=== PATIENT | male | born 1950 | race Caucasian/White ===

== ENCOUNTER 2023-01-11 10:29 | Inpatient (IN) | payer OTHER, SELFPAY ==
[2023-01-11] VITALS (9 sets, daily range): BP systolic 125–143; BP diastolic 67–77; PULSE 67–74; RESP 18–20; TEMP 36.1–36.9; O2SAT 93–96; BMI 34.2; BMI 34.3
--- NOTE | 2023-01-11 10:47 | ED.GENADULT ---
HPI - General Adult General Time Seen by Provider: 10:47 Date Seen: 01/11/23 Chief complaint: Extremity Pain/Injury, Lower Stated complaint: R foot pain, swelling Time Seen by Provider: 01/11/23 10:39 Source: patient and RN notes reviewed Mode of arrival: ambulatory Limitations: no limitations History of Present Illness HPI narrative: Patient is a 72-year-old male coming in with concern of increasing redness and swelling with some discomfort of his right lower extremity. Last week he rode to the cabin in the back of the van on a bench, his feet were not touching the ground and he compressed the back portion of his right leg, when he got out of the van was a bit uncomfortable. He really did not start noting the redness and swelling and discomfort of the leg until recently. He has not had any fevers. He does report history of gout. His daughter is a nurse and has been putting hydrocolloid type bandage on his right great toe. There is reportedly a little wound there that is maybe been draining some. He denies any significant peripheral neuropathy or diagnosis of this but states overall he feels that his sensation maybe diminished in his lower extremities compared to what it used to be. However, he states he still feels in his legs. Denies any history of MRSA. He is diabetic, denies history of any thromboembolic disease is, denies any use of any anticoagulants or blood thinners. He has no shortness of breath, no difficulty breathing no chest pain or discomfort. Related Data Home Medications Medication Instructions Recorded Confirmed amlodipine 10 mg tablet 10 mg PO DAILY 01/11/23 01/11/23 benazepril 20 mg tablet 20 mg PO DAILY 01/11/23 01/11/23 glipizide 10 mg tablet 10 mg PO DAILY 01/11/23 01/11/23 metformin 1,000 mg tablet 1,000 mg PO BIDWMEAL 01/11/23 01/11/23 metoprolol tartrate 100 mg tablet 100 mg PO DAILY 01/11/23 01/11/23 Allergies Allergy/AdvReac Type Severity Reaction Status Date / Time No Known Drug Allergies Allergy Verified 01/11/23 10:41 Review of Systems Status of ROS: Reports: 6 or more systems reviewed and unremarkable except as noted in History and below PFSH PFSH Social History service: Yes Exam Const: Vital Signs, click to edit/add: Vital Signs - 24 hr 01/11/23 10:42 01/11/23 12:14 01/11/23 12:15 Temperature 97.5 F L Pulse Rate 71 Pulse Rate [Right Pulse Oximeter] 71 Respiratory Rate 18 Blood Pressure 138/74 Blood Pressure [Ri ght Upper Arm] 125/67 Pulse Oximetry 96 94 Oxygen Delivery Me thod Room Air Documenting provider has reviewed patient's vital signs: yes Common normals: no apparent distress, oriented x3, no limitations, healthy appearing and alert General appearance: cooperative, comfortable, well kempt and well developed Nutritional appearance: overweight HENMT: Common normals: normocephalic, head/scalp atraumatic, hearing grossly normal bilaterally and external nose normal Head and scalp: normocephalic and atraumatic Face and sinus: normal facial exam Nose: external nose normal Eye: Common normals: PERRL, EOMs intact bilaterally, conjunctivae normal and no scleral icterus Conjunctiva: conjunctiva(e) normal Pupil: PERRL Neck & C-Spine: Common normals: full ROM, no lymphadenopathy, supple, no meningeal signs and no JVD Resp: Common normals: normal respiratory effort, no retractions, no use of accessory muscles and clear to auscultation bilaterally Effort & inspection: able to speak in complete sentences Auscultation: clear to auscultation bilaterally Cardio: Common normals: no JVD, regular rate, regular rhythm, S1 normal heart sound, S2 normal heart sound, no gallops, no clicks and no murmurs Rate: regular rate Rhythm: regular rhythm Heart sounds: S1 normal and S2 normal Extremity: Other: Right lower extremity is erythematous, slightly warm, is seemingly confluently swollen and red below the knee. The knee itself has no effusion, no popliteal masses or pain. Has swelling into the foot as well, dressing was removed from the medial plantar right great toe. There is purulent odorous discharge out of ulcerative base there. This great toe is swollen. Does not seem to have significant tenderness when I palpate. Neuro: [place] Coma Scale: document GCS findings [place]is coma scale eye opening: Spontaneous (4) Aurora coma scale verbal response: Orientated (5) Aurora coma scale motor response: Obey commands (6) Aurora coma scale total score: 15 Common normals: oriented x3 Sensorium/orientation: alert Meningeal signs: no meningeal signs Psych: Appearance: well kempt Course Course Hospital Course: Patient has clinical exam concerning for cellulitis with underlying right great toe ulceration which is most definitely infected. Also with his recent history, need to consider thromboembolic disease. He has no fevers, no hemodynamic changes concerning for any sepsis. Will obtain baseline labs, x-ray the foot to make sure that there does not look to be any basic changes of osteomyelitis on x-ray imaging. Will ultrasound this right lower extremity to rule out any thromboembolic disease. Reevaluation(s) Time of Reevaluation #1: 12:22 Reevaluation #1: Have just reviewed with patient that there is cellulitis in his right lower extremity, significant clinically. Given he is diabetic and there is a wound in the right great toe, do feel he would benefit initially from IV antibiotics and that this is necessary. There is no evidence of DVT on his ultrasound at this time. He is in agreement with this plan. Consultations Consultation #1: Have reviewed with the hospitalist Dr. Camejo. This is a patient with significant cellulitis, right toe ulcer and is diabetic. She would like blood cultures prior to antibiotics. Thus, will draw blood cultures as requested an initiate Unasyn. We did discuss antibiotic coverage. The wound drainage did have the distinctive Pseudomonas smell, would not be surprised at all if this is possibly an offending agent. This certainly could be a multi microbial wound. Wound culture is pending. Will subsequently review plan with patient. Time: 12:16 Vital Signs Vital signs: Initial Vital Signs Temperature 97.5 F L 01/11/23 10:42 Temperature Source Temporal Artery Scan 01/11/23 10:42 Pulse Rate 71 01/11/23 10:42 Respiratory Rate 18 01/11/23 10:42 Blood Pressure 125/67 01/11/23 10:42 Blood Pressure Mean 86 01/11/23 10:42 Blood Pressure Position Sitting 01/11/23 10:42 Pulse Oximetry 96 01/11/23 10:42 Oxygen Delivery Method Room Air 01/11/23 10:42 Vital Signs Temperature 97.5 F L 01/11/23 10:42 Pulse Rate 71 01/11/23 10:42 Respiratory Rate 18 01/11/23 10:42 Blood Pressure 125/67 01/11/23 10:42 Pulse Oximetry 96 01/11/23 10:42 Oxygen Delivery Method Room Air 01/11/23 10:42 Temperature 97.5 F L 01/11/23 10:42 Pulse Rate 71 01/11/23 12:14 Respiratory Rate 18 01/11/23 10:42 Blood Pressure 138/74 01/11/23 12:15 Pulse Oximetry 94 01/11/23 12:14 Oxygen Delivery Method Room Air 01/11/23 10:42 Medical Decision Making Lab Data Lab results reviewed: Yes I reviewed the patient's lab results Labs: Lab Results 01/11/23 Range/Units 11:10 WBC 16.31 H (4.50-11.00) K/uL RBC 3.52 L (4.30-5.90) m/uL Hgb 10.5 L (13.5-17.5) gm/dL Hct 31.3 L (37.0-53.0) % MCV 89 (80-100) fL MCH 30 (26-34) pg MCHC 34 (32-36) gm/dL RDW Coeff of Richard 13.1 (11.5-15.5) % Plt Count 283 (140-440) K/uL Neut % (Auto) 80.0 H (42.0-72.0) % Lymph % (Auto) 6.8 L (20-44) % [place] % (Auto) 11.3 H (0.0-11.0) % Eos % (Auto) 1.0 (0.0-7.0) % Baso % (Auto) 0.2 (0.0-3.0) % Neut # (Auto) 13.00 H (1.7-7.0) K/uL Lymph # (Auto) 1.10 (0.90-2.90) K/uL [place] # (Auto) 1.80 H (0.00-0.90) K/UL Eos # (Auto) 0.20 (0.00-0.50) K/uL Baso # (Auto) 0.00 (0.00-0.30) K/uL Abs Immat Gran (auto) 0.10 (0.00-0.30) K/uL Imm/Tot Granulo (auto) 0.7 % D-Dimer Quant (PE/DVT) 1.92 H (0.00-0.50) ug/ml Sodium 128 L (135-149) mmol/L Potassium 4.2 (3.6-5.1) mmol/L Chloride 97 (96-114) mmol/L Carbon Dioxide 16 L (20-32) mmol/L Anion Gap 15 (7-15) mEq/L BUN 12 (7-30) mg/dL Creatinine 0.9 (0.5-1.5) mg/dL Estimated Creat Clear 71.12 Estimated GFR 91 ml/min Glucose 94 (60-115) mg/dL Lactate 3.2 H (0.5-1.9) mmol/L Calcium 8.7 (8.4-10.6) mg/dL Total Bilirubin 0.4 (0.1-1.5) mg/dL AST 19 (12-35) U/L ALT 18 (4-50) U/L Alkaline Phosphatase 66 (40-150) U/L C-Reactive Protein 12.2 H (0.5-1.0) mg/dL Total Protein 7.2 (6.0-8.3) g/dL Albumin 3.8 (3.3-5.0) g/dL Imaging Data XR right foot: Attestation: I have reviewed the pertinent imaging results. My impression: I see no evidence of osteomyelitis on my preliminary review. Radiologist's impression: Patient: [facility] Facility:[facility] Patient ID:?[id number] Site Patient ID:?[id number]. Site :?[id number] Study:?XRay Extremity Right FOOT-01/11/2023 11:34:27 AM Ordering Physician:Bianca Mendoza Final Report: Indication: Infected ulcer of the right great toe. Technique: Right foot, 3 views. Comparison: None. Findings/Impression: Bones: Alignment is normal. No displaced fractures. No definite radiographic evidence of osteomyelitis. However, if there is persistent clinical concern, MRI is a much more sensitive study. Joint spaces: Unremarkable. Soft tissues: Soft tissue swelling about the great toe. Vascular calcifications. Dictated by Wiley Gamino MD @ 01/11/2023 12:11:42 PM (Electronic Signature) Venous US: Attestation: I have reviewed the pertinent imaging results. Radiologist's impression: Patient: [facility] Facility:?[facility] Patient ID:?[id number] Site Patient ID:?[id number]. Site :?[id number] Study:?US Extremity Right LEV RT-01/11/2023 11:34:50 AM Ordering Physician:Bianca Mendoza Final Report: INDICATION: Leg pain and swelling. TECHNIQUE: Ultrasound venous duplex lower right extremity. Compression venous exam was performed using salazar-scale, color Doppler, and spectral Doppler analysis. COMPARISON: None. FINDINGS: Deep veins: Sonographic imaging demonstrates the right common femoral, deep femoral, superficial femoral, popliteal, posterior tibial and the contralateral right common femoral veins to be fully compressible with normal color Doppler blood flow. Superficial veins: Greater saphenous vein is fully compressible. No popliteal cyst. IMPRESSION: Normal right lower extremity venous ultrasound, no sign of deep venous thrombosis. Dictated by Wiley Gamino MD @ 01/11/2023 12:09:47 PM (Electronic Signature) Discharge Plan Discharge Clinical Impression: Cellulitis of leg, right Patient Disposition: Admitted As Observation
--- NOTE | 2023-01-11 10:55 | CRLHL7_ITS ---
For Patients: As a result of the Century Cures Act, medical imaging exams and procedure reports are released immediately into your electronic medical record. You may view this report before your referring provider. If you have questions, please contact your health care provider. INDICATION: Leg pain and swelling. TECHNIQUE: Ultrasound venous duplex lower right extremity. Compression venous exam was performed using salazar-scale, color Doppler, and spectral Doppler analysis. COMPARISON: None. FINDINGS: Deep veins: Sonographic imaging demonstrates the right common femoral, deep femoral, superficial femoral, popliteal, posterior tibial and the contralateral right common femoral veins to be fully compressible with normal color Doppler blood flow. Superficial veins: Greater saphenous vein is fully compressible. No popliteal cyst. IMPRESSION: Normal right lower extremity venous ultrasound, no sign of deep venous thrombosis. Dictated by Wiley Gamino MD @ 01/11/2023 12:09:47 PM (Electronically Signed)
--- NOTE | 2023-01-11 10:55 | CRLHL7_ITS ---
For Patients: As a result of the Cures Act, medical imaging exams and procedure reports are released immediately into your electronic medical record. You may view this report before your referring provider. If you have questions, please contact your health care provider. Indication: Infected ulcer of the right great toe. Technique: Right foot, 3 views. Comparison: None. Findings/Impression: Bones: Alignment is normal. No displaced fractures. No definite radiographic evidence of osteomyelitis. However, if there is persistent clinical concern, MRI is a much more sensitive study. Joint spaces: Unremarkable. Soft tissues: Soft tissue swelling about the great toe. Vascular calcifications. Dictated by Wiley Gamino MD @ 01/11/2023 12:11:42 PM (Electronically Signed)
[2023-01-11 11:15] LABS: Lactate* 3.2 mmol/L (0.5-1.9)
[2023-01-11 11:19] LABS: Basophils Percent Auto 0.2 % (0.0-3.0); Hematocrit 31.3 % (37.0-53.0); Hemoglobin* 10.5 gm/dL (13.5-17.5); Immature Granulocytes Pct Auto 0.7 %; Lymphocytes Percent Auto 6.8 % (20-44); Mean Corpuscular HGB Conc 34 gm/dL (32-36); Mean Corpuscular Hemoglobin 30 pg (26-34); Mean Corpuscular Volume 89 fL (80-100); Monocytes Percent Auto 11.3 % (0.0-11.0); Platelet Count* 283 K/uL (140-440); RDW Coefficient of Variation % 13.1 % (11.5-15.5); Red Blood Count 3.52 m/uL (4.30-5.90); White Blood Count* 16.31 K/uL (4.50-11.00)
[2023-01-11 11:23] LABS: Slide Review Reflex No
[2023-01-11 11:31] LABS: Albumin* 3.8 g/dL (3.3-5.0); Chloride* 97 mmol/L (96-114)
[2023-01-11 11:32] LABS: Potassium* 4.2 mmol/L (3.6-5.1); Sodium* 128 mmol/L (135-149)
[2023-01-11 11:34] LABS: Bilirubin Total* 0.4 mg/dL (0.1-1.5); Creatinine* 0.9 mg/dL (0.5-1.5); Est. Creatinine Clearance* 71.12; Estimated Glomerular Filt Rate 91 ml/min
[2023-01-11 11:35] LABS: Alanine Aminotransferase* 18 U/L (4-50); Alkaline Phosphatase* 66 U/L (40-150); Anion Gap 15 mEq/L (7-15); Aspartate Amino Transferase* 19 U/L (12-35); Blood Urea Nitrogen* 12 mg/dL (7-30); Calcium* 8.7 mg/dL (8.4-10.6); Carbon Dioxide* 16 mmol/L (20-32); Glucose* 94 mg/dL (60-115); Total Protein* 7.2 g/dL (6.0-8.3)
[2023-01-11 11:36] LABS: D Dimer Quantitative* 1.92 ug/ml (0.00-0.50)
[2023-01-11 11:59] LABS: C Reactive Protein* 12.2 mg/dL (0.5-1.0)
[2023-01-11] MEDS: PIPERACILLIN/TAZOBACTAM 3.375 GM in 0.9 % SODIUM CHLORIDE Mini-bag 100 ML IVPB (12:35)
[2023-01-11] MEDS: IBUPROFEN 200 MG TABLET 400 MG PO (12:59)
--- NOTE | 2023-01-11 13:24 | P.IMHP_ITS ---
Hospitalist- H&P: HPI History of Present Illness Date Seen: 01/11/23 Chief complaint: R foot pain, swelling Narrative: ADMISSION HISTORY AND PHYSICAL - HOSPITALIST Chief Complaint: right foot infection HPI: ER COURSE: CODE STATUS: EMERGENCY CONTACT PLAN: Veena Myers Rel to [facility] [phone] Cell Phone I've updated the [facility], medications and allergies in the [facility] tabs. INVESTIGATIONS: LABS/MICRO/ECG/IMAGING 138/74. Pulse 71. Resp is 18. Afebrile. 94% on room air. 111.13 kilos (244lbs) Elevated white blood cell count, 16.3 Hemoglobin 10.5 Platelet count 283 Elevated D-dimer Sodium 128, mildly acidotic with a CO2 of 16, lactate 3.2, normal kidney function Normal LFTs CRP 12.2 duplex right foot Normal right lower extremity venous ultrasound, no sign of deep venous thrombosis. ft foot xray Bones: Alignment is normal. No displaced fractures. No definite radiographic evidence of osteomyelitis. However, if there is persistent clinical concern, MRI is a much more sensitive study. REVIEW OF SYSTEMS: 12-point ROS completed with patient and negative unless otherwise stated in HPI or below. PHYSICAL EXAM: CONSTITUTIONAL: Conversive, good historian. A/O. Knows setting and context. VITAL SIGNS: see record. HEENT: Normocephalic, atraumatic. PERRL, EOMI, conjunctivae pink, no scleral icterus. Ears and nose externally normal. Pharynx normal. NECK: No JVD. No carotid bruit, no thyromegaly, no adenopathy. CHEST: Clear to auscultation bilaterally HEART: S1 and S2 normal. No harsh murmurs. Edema MUSCULOSKELETAL: No gross joint deformity or swelling. NEURO: Cranial nerves intact. Grossly intact. No asymmetric findings. SKIN: No rashes, petechiae, concerning changes PSYCHIATRIC: Euthymic. ADMIT TO MEDSURG: CCU FLOOR CARE DVT: Lovenox GI: PO intake Time spent: Today I spent 75 minutes seeing the patient, discussing the patient with ER staff, reviewing [facility] and [facility] notes/diagnostics, discussing the care plan with our care time that includes social work, PT/OT, pharmacy, RT, [place] [facility] and documenting my impressions and plan in the medical record. [facility] Medical History (Updated 01/11/23 @ 13:25 by Mylene Camejo MD) B12 deficiency ?E53.8 - Deficiency of other specified B group vitamins (ICD-10) Lumbosacral radiculopathy at L5 ?M54.17 - Radiculopathy, lumbosacral region (ICD-10) Spinal stenosis ?M48.00 - Spinal stenosis, site unspecified (ICD-10) Social History service: Yes Meds Home Medications and Allergies Home Medications Medication Instructions Recorded Confirmed Type amlodipine 10 mg tablet 10 mg PO DAILY 01/11/23 01/11/23 History benazepril 20 mg tablet 20 mg PO DAILY 01/11/23 01/11/23 History glipizide 10 mg tablet 10 mg PO DAILY 01/11/23 01/11/23 History metformin 1,000 mg tablet 1,000 mg PO BIDWMEAL 01/11/23 01/11/23 History metoprolol tartrate 100 mg tablet 100 mg PO DAILY 01/11/23 01/11/23 History Allergies Allergy/AdvReac Type Severity Reaction Status Date / Time No Known Drug Allergies Allergy Verified 01/11/23 10:41 Exam Const: Vital Signs, click to edit/add: Vital Signs - 24 hr 01/11/23 10:42 01/11/23 12:14 01/11/23 12:15 Temperature 97.5 F L Pulse Rate 71 Pulse Rate [Right Pulse Oximeter] 71 Respiratory Rate 18 Blood Pressure 138/74 Blood Pressure [Ri ght Upper Arm] 125/67 Pulse Oximetry 96 94 Oxygen Delivery Me thod Room Air Hospitalist - H&P: Result Labs Labs: Short CBC 01/11/23 Range/Units 11:10 WBC 16.31 H (4.50-11.00) K/uL Hgb 10.5 L (13.5-17.5) gm/dL Hct 31.3 L (37.0-53.0) % Plt Count 283 (140-440) K/uL BMP 01/11/23 11:10 Sodium 128 L Potassium 4.2 Chloride 97 Carbon Dioxide 16 L BUN 12 Creatinine 0.9 Glucose 94 Calcium 8.7 Liver Function 01/11/23 Range/Units 11:10 Total Bilirubin 0.4 (0.1-1.5) mg/dL AST 19 (12-35) U/L ALT 18 (4-50) U/L Alkaline Phosphatase 66 (40-150) U/L Albumin 3.8 (3.3-5.0) g/dL Assessment and Plan Assessment and plan (1) Hyponatremia: Status: Acute (2) Type 2 diabetes mellitus: Status: Acute (3) Morbid obesity: Status: Acute (4) Elevated lactic acid level: Status: Acute
[2023-01-11 13:49] LABS: HCO3 VBG 17 mmol/L (21-28); PCO2 VBG 27 mmHG (40-50); PO2 VBG 53.2 mmHG (25-47); pH VBG 7.394 (7.32-7.43)
--- NOTE | 2023-01-11 13:50 | CRLHL7_ITS ---
For Patients: As a result of the Century Cures Act, medical imaging exams and procedure reports are released immediately into your electronic medical record. You may view this report before your referring provider. If you have questions, please contact your health care provider. HISTORY: Swollen red toe. Open wound. TECHNIQUE: Noncontrast MRI of the right forefoot. COMPARISON: Radiographs 01/11/2023. FINDINGS: Soft tissue wound involving the great toe. Infiltration of the soft tissues of the great toe compatible with cellulitis. No deep fluid collection. Possible skin blistering involving the great toe. There is no osteomyelitis. No definite septic arthritis. There are degenerative changes involving the 1st MTP and IP joints. There is no acute fracture. Soft tissue edema. Subacute on chronic denervation changes involving foot musculature. IMPRESSION: 1. Cellulitis of the great toe with soft tissue wound and potentially skin blistering. 2. No deeper soft tissue collection. 3. No osteomyelitis or septic arthritis. 4. Degenerative changes. Dictated by John Huertas MD @ 01/13/2023 5:05:18 PM (Electronically Signed)
--- NOTE | 2023-01-11 13:59 | P.IMHP_ITS ---
Hospitalist- H&P: HPI History of Present Illness Date Seen: 01/11/23 Chief complaint: R foot pain, swelling Narrative: Shayne Myers is a 72 year old male presented to the emergency room today for a right great toe lesion, in addition to right lower extremity erythema, edema, and warmth. He has noted some bloody drainage from his right great toe for a couple of weeks and 5 days ago, noted erythema of his right lower extremity. He has had intermittent discomfort (known history of peripheral vascular disease and peripheral neuropathy), using ibuprofen for pain. He is trying to not use this every day, but occasionally will take up to #10 200mg tablets per day for pain. ER Course and Findings: - would and blood cultures obtained - Zosyn initiated - no acute findings on lower extremity ultrasound - Hgb 10.5 (no history of anemia on chart review) - Na 128 (outpatient sodium baseline 134) - WBC 16, lactate 3.2 Histories updated below. [facility] Review of Systems Status of ROS: Reports: 10 or more systems reviewed and unremarkable except as noted in History and below Narrative: - no abdominal pain or GERD - no hematochezia or melena - last colonoscopy was in 2014, he is not interested in having a repeat. He performed a Cologuard approximately 5 years ago that was negative - daily ETOH use, typically doesn't drink during the month of May. No history of withdrawal - weight has been stable, appetite stable - believes last A1c was 7.9 - no chest pain or shortness of breath - no other concerning skin lesions, has been seen Dermatology regularly [facility] Medical History (Updated 01/11/23 @ 14:28 by Margarita Caldwell MD) Morbid obesity ?E66.01 - Morbid (severe) obesity due to excess calories (ICD-10) Type 2 diabetes mellitus ?E11.9 - Type 2 diabetes mellitus without complications (ICD-10) Atrial fibrillation ?I48.91 - Unspecified atrial fibrillation (ICD-10) B12 deficiency ?E53.8 - Deficiency of other specified B group vitamins (ICD-10) Lumbosacral radiculopathy at L5 ?M54.17 - Radiculopathy, lumbosacral region (ICD-10) Spinal stenosis ?M48.00 - Spinal stenosis, site unspecified (ICD-10) Surgical History (Updated 01/11/23 @ 14:28 by Margarita Caldwell MD) Status post ablation of atrial fibrillation ?Z98.890 - Other specified postprocedural states (ICD-10) ?Z86.79 - Personal history of other diseases of the circulatory system (ICD- 10) Social History (Updated 01/11/23 @ 14:29 by Margarita Caldwell MD) Narrative: Lives with Veena (would be medical decision maker, if needed) of 37 years in [place]. Shayne is Veena's primary caregiver. They have 3 adult children. Previously worked for [employer] Occasional cigar smoker. Drinks daily for most of the year (typically takes May). No history of withdrawal. service: Yes Meds Home Medications and Allergies Home Medications Medication Instructions Recorded Confirmed Type amlodipine 10 mg tablet 10 mg PO DAILY 01/11/23 01/11/23 History atorvastatin 20 mg tablet 20 mg PO QHS 01/11/23 01/11/23 History benazepril 20 mg tablet 40 mg PO DAILY 01/11/23 01/11/23 History glipizide 10 mg tablet 10 mg PO BID 01/11/23 01/11/23 History metformin 1,000 mg tablet 1,000 mg PO BIDWMEAL 01/11/23 01/11/23 History metoprolol tartrate 100 mg tablet 100 mg PO BID 01/11/23 01/11/23 History Allergies Allergy/AdvReac Type Severity Reaction Status Date / Time No Known Drug Allergies Allergy Verified 01/11/23 10:41 Exam Narrative: Exam Narrative: GEN: Alert and oriented, answering questions appropriately, nontoxic HEENT: EOMIs bilaterally, no scleral icterus CV: RRR, No concerning murmurs, rubs, or gallops R: LCTA bilaterally without concerning wheezing, air movement adequate Ext: 3+ pitting edema right lower extremity, decreased peripheral pulses Skin: Confluent blanchable erythema over right lower extremity, distal to the knee. Erythema extends to right great toe. There is a approximately 1 cm in diameter callus lesion on the medial edge of the right great toe, there is another vesicular lesion at the base of the right great toe, plantar aspect, that is draining serosanguineous fluid Neuro: No focal deficits on limited exam Psych: Appropriate Const: Vital Signs, click to edit/add: Vital Signs - 24 hr 01/11/23 10:42 01/11/23 12:14 01/11/23 12:15 Temperature 97.5 F L Pulse Rate 71 Pulse Rate [Right Pulse Oximeter] 71 Respiratory Rate 18 Blood Pressure 138/74 Blood Pressure [Ri ght Upper Arm] 125/67 Pulse Oximetry 96 94 Oxygen Delivery Me thod Room Air Hospitalist - H&P: Result Labs Labs: Short CBC 01/11/23 Range/Units 11:10 WBC 16.31 H (4.50-11.00) K/uL Hgb 10.5 L (13.5-17.5) gm/dL Hct 31.3 L (37.0-53.0) % Plt Count 283 (140-440) K/uL BMP 01/11/23 11:10 Sodium 128 L Potassium 4.2 Chloride 97 Carbon Dioxide 16 L BUN 12 Creatinine 0.9 Glucose 94 Calcium 8.7 Liver Function 01/11/23 Range/Units 11:10 Total Bilirubin 0.4 (0.1-1.5) mg/dL AST 19 (12-35) U/L ALT 18 (4-50) U/L Alkaline Phosphatase 66 (40-150) U/L Albumin 3.8 (3.3-5.0) g/dL Assessment and Plan Assessment and plan (1) Diabetic ulcer of right great toe: Problem comment: - in addition to RLE cellulitis - high risk patient given immunocompromised state as a diabetic, in addition to peripheral vascular disease and neuropathy - Zosyn initiated in the ED, will continue this - MRI ordered and Podiatry consulted Status: Acute (2) Hyponatremia: Problem comment: - potentially related to acute illness vs increased free water intake vs alcohol use - asymptomatic, mild, continue to follow Status: Acute (3) Type 2 diabetes mellitus: Problem comment: - noninsulin dependent - continue home medications + SSI Status: Acute (4) Normocytic anemia: Problem comment: - new, per chart review - I am concerned this represents gastritis in the setting of ibuprofen and alcohol use, although patient is asymptomatic - initiate omeprazole, decrease dosing of ibuprofen, trial alternative therapies for pain - continue outpatient follow-up for anemia workup (known B12 deficiency from PVD workup, no history of anemia prior) Status: Acute Plan - per above - Lovenox for ppx, PPI - updated at bedside, questions answered
[2023-01-11 14:16] LABS: Procalcitonin* 0.11 ng/mL (<0.50)
[2023-01-11 14:20] LABS: Hemoglobin A1C* 6.77 % (0-5.6)
[2023-01-11] MEDS: ACETAMINOPHEN 325 MG TABLET 975 MG PO (15:14)
--- NOTE | 2023-01-11 17:13 | PC.NURSE ---
Pt alert and oriented. Pt pleasant and cooperative. Pt had complaints of pain ranging from 4-5; see EMAR for intervention. Pt?s right LE reddened and edematous. Pt independent in room with walker. Pt had visitors for most of the afternoon. Pt went to MRI at 1700.?
[2023-01-11] MEDS: METFORMIN 1,000 MG TABLET 1000 MG PO (18:17)
[2023-01-11] MEDS: PIPERACILLIN/TAZOBACTAM 4.5 GM in 0.9 % SODIUM CHLORIDE Mini-bag 100 ML IVPB (18:17)
[2023-01-11] MEDS: glipiZIDE 5 MG TABLET 10 MG PO (18:17)
--- NOTE | 2023-01-11 20:01 | P.PODCN_ITS ---
HPI - Podiatry Data of Consult Time Seen by Provider: 19:15 Date Seen: 01/11/23 Patient: [facility] ([facility]) Consult date: 01/11/23 Requesting physician: Margarita Caldwell MD Primary care provider: Not a Local Provider Consult Narrative Reason for consult: Diabetic foot infection Narrative: Shayne Myers is a 72 year old male seen bedside this evening to evaluate his infected right great toe. Currently states he is having some pain but overall feels there is improvement. He relates a significant history for gout. He presented to the emergency room today for a right great toe lesion, in addition to right lower extremity erythema, edema, and warmth. He has noted some bloody drainage from his right great toe for a couple of weeks and 5 days ago, noted erythema of his right lower extremity. He has had intermittent discomfort (known history of peripheral vascular disease and peripheral neuropathy), using ibuprofen for pain. He is trying to not use this every day, but occasionally will take up to #10 200mg tablets per day for pain. ER Course and Findings: - would and blood cultures obtained - Zosyn initiated - no acute findings on lower extremity ultrasound - Hgb 10.5 (no history of anemia on chart review) - Na 128 (outpatient sodium baseline 134) - WBC 16, lactate 3.2 Histories updated below. PCP is the [place]. cc:: CC: Margarita Caldwell MD Review of Systems Status of ROS: Reports: 10 or more systems reviewed and unremarkable except as noted in History and below PFS PFS Medical History Morbid obesity ?E66.01 - Morbid (severe) obesity due to excess calories (ICD-10) Type 2 diabetes mellitus ?E11.9 - Type 2 diabetes mellitus without complications (ICD-10) Atrial fibrillation ?I48.91 - Unspecified atrial fibrillation (ICD-10) B12 deficiency ?E53.8 - Deficiency of other specified B group vitamins (ICD-10) Lumbosacral radiculopathy at L5 ?M54.17 - Radiculopathy, lumbosacral region (ICD-10) Spinal stenosis ?M48.00 - Spinal stenosis, site unspecified (ICD-10) Surgical History (Updated 01/11/23 @ 14:28 by Margarita Caldwell MD) Status post ablation of atrial fibrillation ?Z98.890 - Other specified postprocedural states (ICD-10) ?Z86.79 - Personal history of other diseases of the circulatory system (ICD- 10) Social History (Updated 01/11/23 @ 14:29 by Margarita Caldwell MD) Narrative: Lives with Veena (would be medical decision maker, if needed) of 37 years in [place]. Shayne is Veena's primary caregiver. They have 3 adult children. Previously worked for [employer]. Occasional cigar smoker. Drinks daily for most of the year (typically takes May off). No history of withdrawal. What is your current living situation?: I presently have a place to live Problems where you live: no known problems Problems where you live details: NA In the past 12 months, utilities in danger of being shut off: no In the past 12 mos, have been you worried that your food would run out before you had money to buy more?: never true In the past 12 mos, the food you bought just didn't last and you didn't have money to buy more?: never true Highest level of school completed/degree received: 12th grade, no diploma Smoking Status: Light tobacco smoker What tobacco products do you use: cigars Nicotine containing products detail: Smokes cigars on occasion Second hand tobacco smoke exposure: Yes How often do you have a drink containing alcohol: 4 or more times a week Alcohol type: beer How many standard drinks containing alcohol do you have on a typical day: 1 or 2 How often do you have six or more drinks on one occasion: Never AUDIT-C Alcohol total score: 4 Non-prescribed substance use: denies use Caffeine: Yes How often does anyone, including family, friends and others, physically hurt you : never How often does anyone, including family, friends and others, insult or talk down to you: never How often does anyone, including family, friends and others, threaten you with harm: never How often does anyone, including family, friends and others, scream or curse at you: never Gender Identity: male service: Yes Exam Narrative: Exam Narrative: General: No distress resting comfortably. Vascular: Nonpalpable pedal pulses. Capillary fill time less than 3 seconds all digits. Neuro: Diminished sensation to light touch. Musculoskeletal: Decreased range of motion of the 1st MPJ and the IPJ right great toe. Normal muscle strength. No gross deformity. Derm: Erythema to the right great toe extending to the dorsal foot and ankle. There is a bullous lesion the plantar aspect of the toe near the sulcus. After debridement there is exposed dermal tissue in this area but no exposed subcutaneous tissue. Small amount of purulence drained. There is a ulceration plantar medial IPJ right hallux. Ulceration measures 1 cm x 3 mm. Does not track or undermine. Does not track to bone. No purulence from this area. Labs: White count 16.3, neutrophils 13 with left shift, lactate 3.2, CRP 12.2 Wound culture: Pending X-ray: Mild arthritic changes of the IPJ and MPJ without definitive signs of osteomyelitis. MRI: Radiologist's read is pending. Per my read there does not appear to be an abscess or significant fluid collection deep to the dermal tissue. There does not appear to be signs of osteomyelitis or septic joint. 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 I do not feel that surgical intervention is necessary at this time. This may change based on the radiologist's interpretation of the MRI. I recommend debridement of the ulceration and bolus lesion. Verbal consent was obtained from the patient to proceed. Following debridement Adaptic was applied to the wound and a sterile dressing. Ideally a Hydrogel wound gel with light dressing would be ideal changed daily. I would anticipate discharge home with oral antibiotics once culture complete. Procedure: verbal consent and sterile prep performed. Sharp excisional debridement of the ulceration and bolus lesion was performed with a 10 scalpel blade. The overlying skin of the bolus lesion was excised exposing deep dermal tissue but no subcutaneous tissue. Excisional debridement of the ulcer included subcutaneous tissue. Healthy bleeding margins were obtained. Sterile dressing applied. The area the bolus lesion measured 3 cm x 2 cm. Const: Vital Signs, click to edit/add: Vital Signs - 24 hr 01/11/23 10:42 01/11/23 12:14 01/11/23 12:15 Temperature 97.5 F L Pulse Rate 71 Pulse Rate [Pulse Oximeter] Pulse Rate [Right Pulse Oximeter] 71 Respiratory Rate 18 Blood Pressure 138/74 Blood Pressure [Ri ght Arm] Blood Pressure [Ri ght Upper Arm] 125/67 Pulse Oximetry 96 94 Oxygen Delivery Me thod Room Air 01/11/23 13:05 01/11/23 13:30 01/11/23 13:45 Temperature 97.0 F L Pulse Rate Pulse Rate [Pulse Oximeter] 67 Pulse Rate [Right Pulse Oximeter] Respiratory Rate 18 18 18 Blood Pressure Blood Pressure [Ri ght Arm] 139/76 Blood Pressure [Ri ght Upper Arm] Pulse Oximetry 93 93 93 Oxygen Delivery Me thod Room Air Room Air Room Air 01/11/23 15:00 Temperature Pulse Rate Pulse Rate [Pulse Oximeter] Pulse Rate [Right Pulse Oximeter] Respiratory Rate 18 Blood Pressure Blood Pressure [Ri ght Arm] Blood Pressure [Ri ght Upper Arm] Pulse Oximetry 93 Oxygen Delivery Me thod Room Air Nail Debridement Qualifies If: Qualifiers If:: A patient qualifies for nail debridement if they have: 1 class A finding (Q7) 2 class B findings (Q8) OR 1 class B & 2 class C findings in addition to a primary condition (Q9)
[2023-01-11] MEDS: ENOXAPARIN 40 MG/0.4 ML INJ SUBCUT (20:30)
[2023-01-11] MEDS: METOPROLOL TARTRATE 100 MG TABLET PO (20:30)
[2023-01-11] MEDS: ATORVASTATIN 10 MG TABLET 20 MG PO (20:31)
[2023-01-11] MEDS: SODIUM CHLORIDE 0.9 % (FLUSH) 10 ML SYRINGE 5 ML IVF (20:32)
[2023-01-12] VITALS (8 sets, daily range): BP systolic 138–156; BP diastolic 77–85; PULSE 70–77; RESP 16–18; TEMP 36.5–37.6; O2SAT 92–97
[2023-01-12] MEDS: ACETAMINOPHEN 325 MG TABLET 975 MG PO ×3 (00:22→17:53)
[2023-01-12] MEDS: PIPERACILLIN/TAZOBACTAM 4.5 GM in 0.9 % SODIUM CHLORIDE Mini-bag 100 ML IVPB ×4 (00:22→18:00)
[2023-01-12] MEDS: SODIUM CHLORIDE 0.9 % (FLUSH) 10 ML SYRINGE 5 ML IVF ×5 (00:23→20:20)
[2023-01-12] MEDS: OMEPRAZOLE 20 MG CAPSULE DR 40 MG PO (06:30)
--- NOTE | 2023-01-12 07:00 | PC.NURSE ---
END OF SHIFT NOTE: PT PLEASANT AND COOPERATIVE. A&Ox3. CP, SOB, N/V. AMBULATES WITH WALKER INDEPENDENTLY WITHIN ROOM. VSS ON RA; AFEBRILE. DRESSING TO R. FT C/D/I.?CALL LIGHT WITHIN PT?S REACH. PT SLEPT WELL OVERNIGHT. PT REPORTS RIGHT EXTREMITY FEELING MUCH BETTER THIS MORNING WITH LESS PAIN.
[2023-01-12 07:23] LABS: Basophils Percent Auto 0.5 % (0.0-3.0); Eosinophils Percent Auto 3.3 % (0.0-7.0); Hemoglobin* 10.3 gm/dL (13.5-17.5); Immature Granulocytes Pct Auto 0.8 %; Lymphocytes Percent Auto 9.9 % (20-44); Mean Corpuscular HGB Conc 33 gm/dL (32-36); Mean Corpuscular Hemoglobin 30 pg (26-34); Mean Corpuscular Volume 89 fL (80-100); Monocytes Percent Auto 13.1 % (0.0-11.0); Neutrophils Percent Auto 72.4 % (42.0-72.0); Platelet Count* 303 K/uL (140-440); RDW Coefficient of Variation % 13.1 % (11.5-15.5); Red Blood Count 3.48 m/uL (4.30-5.90); White Blood Count* 11.71 K/uL (4.50-11.00)
[2023-01-12 07:28] LABS: Slide Review Reflex No
[2023-01-12] MEDS: METFORMIN 1,000 MG TABLET 1000 MG PO ×2 (07:42→17:53)
[2023-01-12] MEDS: glipiZIDE 5 MG TABLET 10 MG PO ×2 (07:42→17:54)
[2023-01-12 07:46] LABS: Albumin* 3.2 g/dL (3.3-5.0); Chloride* 99 mmol/L (96-114); Sodium* 132 mmol/L (135-149)
[2023-01-12 07:48] LABS: Creatinine* 0.7 mg/dL (0.5-1.5); Est. Creatinine Clearance* 71.12; Estimated Glomerular Filt Rate 98 ml/min
[2023-01-12 07:49] LABS: Alanine Aminotransferase* 17 U/L (4-50); Alkaline Phosphatase* 71 U/L (40-150); Anion Gap 7 mEq/L (7-15); Aspartate Amino Transferase* 19 U/L (12-35); Bilirubin Total* 0.5 mg/dL (0.1-1.5); Blood Urea Nitrogen* 12 mg/dL (7-30); Calcium* 8.5 mg/dL (8.4-10.6); Carbon Dioxide* 26 mmol/L (20-32); Glucose* 80 mg/dL (60-115); Total Protein* 6.2 g/dL (6.0-8.3)
[2023-01-12 08:23] LABS: Lactate* 0.9 mmol/L (0.5-1.9)
--- NOTE | 2023-01-12 08:30 | REH.OT ---
Patient has not identified skilled OT needs. Patient up independently in room. Discharge OT order.
[2023-01-12 08:43] LABS: Procalcitonin* 0.11 ng/mL (<0.50)
[2023-01-12] MEDS: METOPROLOL TARTRATE 100 MG TABLET PO ×2 (09:35→20:15)
[2023-01-12] MEDS: BENAZEPRIL 10 MG TABLET 40 MG PO (09:35)
[2023-01-12] MEDS: AMLODIPINE 10 MG TABLET PO (09:36)
--- NOTE | 2023-01-12 10:43 | P.IMPN_ITS ---
Progress Note: A&P Assessment and plan (1) Diabetic ulcer of right great toe: Problem details: - in addition to RLE cellulitis - high risk patient given immunocompromised state as a diabetic, in addition to peripheral vascular disease and neuropathy - Zosyn initiated in the ED, will continue this - MRI ordered and Podiatry consulted MRI Right foot: soft tissue swelling about the great toe, vascular calcifications Status: Acute (2) Type 2 diabetes mellitus: Problem details: - noninsulin dependent - continue home medications + SSI Status: Acute (3) Cellulitis of leg, right: Status: Acute (4) Hyponatremia: Problem details: - potentially related to acute illness vs increased free water intake vs alcohol use - asymptomatic, mild, continue to follow Sodium improving 128->132 Status: Acute (5) Normocytic anemia: Problem details: - new, per chart review - I am concerned this represents gastritis in the setting of ibuprofen and alcohol use, although patient is asymptomatic - initiate omeprazole, decrease dosing of ibuprofen, trial alternative therapies for pain - continue outpatient follow-up for anemia workup (known B12 deficiency from P VD workup, no history of anemia prior) Status: Acute Plan continue zosyn, WBC improving; low grade temp overnight; wound culture pending Subjective Date Seen: 01/12/23 Interval history: patient concerned about his who has MS; his daughter is staying with her till Saturday temp of 99.6 overnight improved erythema of right lower extremity MRI Right foot: soft tissue swelling about the great toe, vascular calcificat ions Exam Narrative: Exam Narrative: Gen: no acute distress HEENT: NCAT EOMI mmm CV: RRR normal s1 s2 Lungs: CTAB Abd: Soft,nt, nd Neuro: Alert, oriented, CN grossly intact; nonfocal screening?exam Psych: appropriate affect MSK: age appropriate muscle mass Skin; improved right lower extremity erythema; right great toe purulent discharge Const: Vital Signs, click to edit/add: Vital Signs - 24 hr 01/11/23 12:14 01/11/23 12:15 01/11/23 13:05 Temperature 97.0 F L Pulse Rate 71 Pulse Rate [Pulse Oximeter] 67 Respiratory Rate 18 Blood Pressure 138/74 Blood Pressure [Ri ght Arm] 139/76 Pulse Oximetry 94 93 Oxygen Delivery Me thod Room Air 01/11/23 13:30 01/11/23 13:45 01/11/23 15:00 Temperature Pulse Rate Pulse Rate [Pulse Oximeter] Respiratory Rate 18 18 18 Blood Pressure Blood Pressure [Ri ght Arm] Pulse Oximetry 93 93 93 Oxygen Delivery Me thod Room Air Room Air Room Air 01/11/23 20:25 01/11/23 22:55 01/11/23 22:55 Temperature 98.4 F Pulse Rate Pulse Rate [Pulse Oximeter] 74 74 Respiratory Rate 20 20 20 Blood Pressure Blood Pressure [Ri ght Arm] 143/77 H Pulse Oximetry 95 95 Oxygen Delivery Me thod Room Air CPAP Room Air CPAP 01/12/23 00:20 01/12/23 03:00 01/12/23 07:25 Temperature 99.6 F 98.2 F Pulse Rate Pulse Rate [Pulse Oximeter] 76 75 Respiratory Rate 18 18 16 Blood Pressure Blood Pressure [Ri ght Arm] 142/77 H 150/79 H Pulse Oximetry 92 95 Oxygen Delivery Me thod Room Air CPAP CPAP Room Air 01/12/23 07:25 Temperature Pulse Rate Pulse Rate [Pulse Oximeter] Respiratory Rate 16 Blood Pressure Blood Pressure [Ri ght Arm] Pulse Oximetry 95 Oxygen Delivery Me thod Room Air Labs Labs: Laboratory Results - last 24 hr 01/11/23 01/11/23 01/12/23 11:10 13:36 06:37 WBC 16.31 H 11.71 H RBC 3.52 L 3.48 L Hgb 10.5 L 10.3 L Hct 31.3 L 31.0 L MCV 89 89 MCH 30 30 MCHC 34 33 RDW Coeff of Richard 13.1 13.1 Plt Count 283 303 Neut % (Auto) 80.0 H 72.4 H Lymph % (Auto) 6.8 L 9.9 L [place] % (Auto) 11.3 H 13.1 H Eos % (Auto) 1.0 3.3 Baso % (Auto) 0.2 0.5 Neut # (Auto) 13.00 H 8.50 H Lymph # (Auto) 1.10 1.20 [place] # (Auto) 1.80 H 1.50 H Eos # (Auto) 0.20 0.40 Baso # (Auto) 0.00 0.10 Abs Immat Gran (auto) 0.10 0.10 Imm/Tot Granulo (auto) 0.7 0.8 D-Dimer Quant (PE/DVT) 1.92 H VBG pH 7.394 VBG pCO2 27 L VBG pO2 53.2 H VBG HCO3 17 L Sodium 128 L 132 L Potassium 4.2 5.0 Chloride 97 99 Carbon Dioxide 16 L 26 Anion Gap 15 7 BUN 12 12 Creatinine 0.9 0.7 Estimated Creat Clear 71.12 71.12 Estimated GFR 91 98 Glucose 94 80 Hemoglobin A1c 6.77 H Lactate 3.2 H 0.9 Calcium 8.7 8.5 Total Bilirubin 0.4 0.5 AST 19 19 ALT 18 17 Alkaline Phosphatase 66 71 C-Reactive Protein 12.2 H Total Protein 7.2 6.2 Albumin 3.8 3.2 L Procalcitonin 0.11 0.11 Lab Acknowledgement Test Added
--- NOTE | 2023-01-12 13:23 | W.PM.CROSSCO ---
Subjective Subjective Date Seen: 01/12/23 Principal diagnosis: Results review Interval history: Patient noted to have GPC in clusters on blood culture. Vancomycin added to Zosyn. VS reassuring. Continue to follow, repeat blood cultures ordered.
--- NOTE | 2023-01-12 16:37 | PC.NURSE ---
Pt alert and oriented. Pt pleasant and cooperative. Pt had complaints of pain rated at a 2; Pt had scheduled medications-Pt did not want any PRN medications during shift. Pt?s right LE reddened and edematous; redness has improved from time of admission. Pt?s outer layer of dressing rewrapped and secured mid-morning. Pt independent in room with walker. Pt had visitors in the midafternoon. Pt up in chair multiple times during shift. ? ?
[2023-01-12] MEDS: ENOXAPARIN 40 MG/0.4 ML INJ SUBCUT (20:15)
[2023-01-12] MEDS: ATORVASTATIN 10 MG TABLET 20 MG PO (20:15)
[2023-01-13] VITALS (7 sets, daily range): BP systolic 144–152; BP diastolic 69–80; PULSE 68–76; RESP 16–18; TEMP 36.6–37; O2SAT 93–97
[2023-01-13] MEDS: ACETAMINOPHEN 325 MG TABLET 975 MG PO ×3 (00:18→17:37)
[2023-01-13] MEDS: PIPERACILLIN/TAZOBACTAM 4.5 GM in 0.9 % SODIUM CHLORIDE Mini-bag 100 ML IVPB ×4 (00:18→18:04)
[2023-01-13 06:39] LABS: Basophils Percent Auto 0.3 % (0.0-3.0); Eosinophils Percent Auto 3.2 % (0.0-7.0); Hemoglobin* 10.2 gm/dL (13.5-17.5); Lymphocytes Percent Auto 12.8 % (20-44); Mean Corpuscular HGB Conc 33 gm/dL (32-36); Mean Corpuscular Hemoglobin 30 pg (26-34); Mean Corpuscular Volume 90 fL (80-100); Monocytes Percent Auto 12.2 % (0.0-11.0); Neutrophils Percent Auto 70.5 % (42.0-72.0); Platelet Count* 341 K/uL (140-440); RDW Coefficient of Variation % 13.1 % (11.5-15.5); Red Blood Count 3.44 m/uL (4.30-5.90); White Blood Count* 11.94 K/uL (4.50-11.00)
[2023-01-13 06:41] LABS: Slide Review Reflex No
--- NOTE | 2023-01-13 06:44 | PC.NURSE ---
Pt alert and oriented x3. Afebrile. Pt reports 2/10 pain in right leg, managed with scheduled medications. Right great toe dressing changed and CDI. Pain medications offered for dressing change pt declined ?it doesn?t hurt when you change it?. Pt denies chest pain?and N/V. Pt reports SOB with exertion.?Pt is up ad lena in room, voiding. Pt reported having a loose bm this morning. ?
[2023-01-13] MEDS: OMEPRAZOLE 20 MG CAPSULE DR 40 MG PO (06:49)
[2023-01-13 06:59] LABS: Chloride* 105 mmol/L (96-114); Sodium* 136 mmol/L (135-149)
[2023-01-13 07:00] LABS: Potassium* 4.5 mmol/L (3.6-5.1)
[2023-01-13 07:02] LABS: Anion Gap 8 mEq/L (7-15); Carbon Dioxide* 23 mmol/L (20-32); Creatinine* 0.7 mg/dL (0.5-1.5); Est. Creatinine Clearance* 71.12; Estimated Glomerular Filt Rate 98 ml/min
[2023-01-13 07:03] LABS: Blood Urea Nitrogen* 12 mg/dL (7-30); Calcium* 8.4 mg/dL (8.4-10.6); Glucose* 108 mg/dL (60-115)
[2023-01-13] MEDS: METFORMIN 1,000 MG TABLET 1000 MG PO ×2 (07:41→17:36)
[2023-01-13] MEDS: glipiZIDE 5 MG TABLET 10 MG PO ×2 (07:41→17:36)
[2023-01-13] MEDS: SODIUM CHLORIDE 0.9 % (FLUSH) 10 ML SYRINGE 5 ML IVF ×2 (09:00→21:01)
[2023-01-13] MEDS: METOPROLOL TARTRATE 100 MG TABLET PO ×2 (09:00→21:01)
[2023-01-13] MEDS: BENAZEPRIL 10 MG TABLET 40 MG PO (09:00)
[2023-01-13] MEDS: AMLODIPINE 10 MG TABLET PO (09:00)
--- NOTE | 2023-01-13 11:53 | P.IMPN_ITS ---
Progress Note: A&P Assessment and plan (1) Diabetic ulcer of right great toe: Problem details: - in addition to RLE cellulitis - high risk patient given immunocompromised state as a diabetic, in addition to peripheral vascular disease and neuropathy - Zosyn initiated in the ED, will continue this - MRI ordered and Podiatry consulted MRI Right foot: soft tissue swelling about the great toe, vascular calcifications Status: Acute (2) Gram-positive bacteremia: Problem details: -added vancomycin to his Zosyn regimen. Second set of cultures ordered. Awaiting confirmation. Will order nasal MRSA. Status: Acute (3) Type 2 diabetes mellitus: Problem details: - noninsulin dependent - continue home medications + SSI Status: Acute (4) Cellulitis of leg, right: Status: Acute (5) Hyponatremia: Problem details: - potentially related to acute illness vs increased free water intake vs alcohol use - asymptomatic, mild, continue to follow Sodium improving 128->132 Status: Acute (6) Normocytic anemia: Problem details: - new, per chart review - I am concerned this represents gastritis in the setting of ibuprofen and alcohol use, although patient is asymptomatic - initiate omeprazole, decrease dosing of ibuprofen, trial alternative therapies for pain - continue outpatient follow-up for anemia workup (known B12 deficiency from PVD workup, no history of anemia prior) Status: Acute Subjective Date Seen: 01/13/23 Interval history: Daily Progress Note - Hospital Medicine Day #: 3 CC: Right foot cellulitis, diabetic foot ulcer OVERNIGHT UPDATES FROM STAFF & MED, LAB, IMAGING UPDATES -patient has Gram-positive blood cultures in clusters, rule out MRSA. On vanc and Zosyn. -objective evidence of the infection is improving. MRI reviewed. -patient is anxious to discharges he primarily is the caregiver for his . -No fever in last 24 hours Objective: Vitals: see above Lungs: Clear. Cardiac: S1S2. Right leg: Erythema decreasing circumferentially along the distal anterior posterior lower extremity. Wound is shallow but large about the size of a quarter on the pad of his right big toe and into the margin between his 1st 2nd toes. Good pulses. Disposition/Potential discharge - Likely to return to previous living situation. Today I spent 50minutes seeing the patient, reviewing Expanse and EPIC notes /diagnostics, discussing the care plan with our care time that includes social work, PT/OT, pharmacy, RT, prison and documenting my impressions and plan in the medical record. Exam Const: Vital Signs, click to edit/add: Vital Signs - 24 hr 01/12/23 14:50 01/12/23 14:50 01/12/23 14:50 Temperature 98.3 F Pulse Rate [Pulse Oximeter] 71 71 Respiratory Rate 16 16 Blood Pressure [Ri ght Arm] 147/85 H Pulse Oximetry 94 94 Oxygen Delivery Me thod Room Air Room Air 01/12/23 20:05 01/12/23 21:38 01/12/23 21:38 Temperature 98.2 F Pulse Rate [Pulse Oximeter] 70 70 Respiratory Rate 16 16 16 Blood Pressure [Ri ght Arm] 138/81 Pulse Oximetry 95 95 Oxygen Delivery Me thod Room Air Room Air 01/13/23 02:20 01/13/23 07:30 01/13/23 07:35 Temperature 98.2 F 98.2 F Pulse Rate [Pulse Oximeter] 69 68 Respiratory Rate 16 16 16 Blood Pressure [Ri ght Arm] 152/71 H 144/77 H Pulse Oximetry 94 97 97 Oxygen Delivery Me thod Room Air Room Air Room Air Labs Labs: Laboratory Results - last 24 hr 01/13/23 06:15 WBC 11.94 H RBC 3.44 L Hgb 10.2 L Hct 31.0 L MCV 90 MCH 30 MCHC 33 RDW Coeff of Richard 13.1 Plt Count 341 Neut % (Auto) 70.5 Lymph % (Auto) 12.8 L [place] % (Auto) 12.2 H Eos % (Auto) 3.2 Baso % (Auto) 0.3 Neut # (Auto) 8.40 H Lymph # (Auto) 1.50 [place] # (Auto) 1.50 H Eos # (Auto) 0.40 Baso # (Auto) 0.00 Abs Immat Gran (auto) 0.10 Imm/Tot Granulo (auto) 1.0 Sodium 136 Potassium 4.5 Chloride 105 Carbon Dioxide 23 Anion Gap 8 BUN 12 Creatinine 0.7 Estimated Creat Clear 71.12 Estimated GFR 98 Glucose 108 Calcium 8.4
[2023-01-13 12:37] LABS: C Reactive Protein* 7.6 mg/dL (0.5-1.0)
--- NOTE | 2023-01-13 18:49 | PC.NURSE ---
Pt alert and oriented. Pt pleasant and cooperative. Pt had complaints of pain rated at a 1; Pt had scheduled medications-Pt did not want any PRN medications during shift. Pt?s right LE reddened, warm, and edematous; redness has improved from time of admission. Pt?s dressing changed at 9am. Pt independent in room with walker. Pt?s IV removed; new IV placed at 1840.?
[2023-01-13] MEDS: ATORVASTATIN 10 MG TABLET 20 MG PO (21:01)
[2023-01-13] MEDS: ENOXAPARIN 40 MG/0.4 ML INJ SUBCUT (21:01)
[2023-01-13] MEDS: LOPERAMIDE HCL 2 MG CAPSULE PO (21:27)
[2023-01-14] MEDS: SODIUM CHLORIDE 0.9 % (FLUSH) 10 ML SYRINGE 5 ML IVF ×3 (00:29→09:05)
[2023-01-14] MEDS: PIPERACILLIN/TAZOBACTAM 4.5 GM in 0.9 % SODIUM CHLORIDE Mini-bag 100 ML IVPB ×3 (00:29→13:31)
[2023-01-14 02:00] VITALS: BP 132/73; PULSE 66; RESP 16; TEMP 36.8; O2SAT 96
[2023-01-14] MEDS: OMEPRAZOLE 20 MG CAPSULE DR 40 MG PO (06:27)
[2023-01-14 06:33] LABS: Hematocrit 31.4 % (37.0-53.0); Hemoglobin* 10.1 gm/dL (13.5-17.5); Mean Corpuscular HGB Conc 32 gm/dL (32-36); Mean Corpuscular Hemoglobin 29 pg (26-34); Mean Corpuscular Volume 91 fL (80-100); Platelet Count* 357 K/uL (140-440); Red Blood Count 3.44 m/uL (4.30-5.90); Slide Review Reflex No; White Blood Count* 10.14 K/uL (4.50-11.00)
[2023-01-14 06:45] LABS: Chloride* 107 mmol/L (96-114); Potassium* 4.5 mmol/L (3.6-5.1); Sodium* 138 mmol/L (135-149)
[2023-01-14 06:48] LABS: Creatinine* 0.7 mg/dL (0.5-1.5); Est. Creatinine Clearance* 71.12; Estimated Glomerular Filt Rate 98 ml/min
[2023-01-14 06:49] LABS: Anion Gap 7 mEq/L (7-15); Blood Urea Nitrogen* 8 mg/dL (7-30); Calcium* 8.4 mg/dL (8.4-10.6); Carbon Dioxide* 24 mmol/L (20-32); Glucose* 82 mg/dL (60-115)
[2023-01-14 06:52] LABS: C Reactive Protein* 3.3 mg/dL (0.5-1.0)
--- NOTE | 2023-01-14 06:52 | PC.NURSE ---
Pt alert and oriented x3. Afebrile. Pt reports 1/10 pain in right leg, managed with scheduled medications. Right great toe dressing?and CDI. Pt denies chest pain?and N/V. Pt reports SOB with exertion.?Pt is up ad lena in room, voiding. Pt reported to have continuous loose stools in afternoon 01/13/23 updated, PRN Imodium given. ?
[2023-01-14 07:55] VITALS: RESP 16; O2SAT 96
[2023-01-14] MEDS: METFORMIN 1,000 MG TABLET 1000 MG PO (07:58)
[2023-01-14] MEDS: glipiZIDE 5 MG TABLET 10 MG PO (07:58)
[2023-01-14 08:08] VITALS: BP 158/79; PULSE 69; RESP 16; TEMP 36.3; O2SAT 96
[2023-01-14] MEDS: AMLODIPINE 10 MG TABLET PO (09:05)
[2023-01-14] MEDS: ACETAMINOPHEN 325 MG TABLET 975 MG PO (09:05)
[2023-01-14] MEDS: BENAZEPRIL 10 MG TABLET 40 MG PO (09:05)
[2023-01-14] MEDS: METOPROLOL TARTRATE 100 MG TABLET PO (09:05)
[2023-01-14 11:00] VITALS: BP 141/63; PULSE 60; RESP 16; TEMP 36.8; O2SAT 92
--- NOTE | 2023-01-14 13:39 | NUTR.NU ---
RDN with nutrition screen for administrative processor for having a wound present and patient is unsure of weight loss at time of admission. Patient has a diabetic ulcer of right great toe. RDN visited with patient whom reported he was being discharged today. Patient reports a good appetite. Per concierge, patient ate 75% of dinner on 01/11/23, ate 100% of 2 meals and 50% of 1 meal on 01/12/23, and patient ate 75% at 1 meal, pretzels at 1 meal, and 100% at 1 meal on 01/13/23. RDN provided information on the importance of optimum calorie, protein, and fluid intake for wound healing. Discussed ways to increase protein. RDN also recommends taking a multivitamin with minerals. Patient reports he already takes a multivitamin and notes incorporating protein at all meals and snacks. Patient declined receiving any supplement today before discharge. Encouraged nutritional supplements as appropriate for wound healing. Patient verbalized understanding. Patient has dx of Type 2 Diabetes mellitus, but patient declined diabetes education at this time. Patient reports a UBW of ~235-240lbs. Current weight is at 241lbs on 01/14/23. No weight hx available to review, but patient declined recent weight loss. Patient had no questions or concerns at this time. RDN will continue to follow PRN.
--- NOTE | 2023-01-14 13:54 | PC.NURSE ---
Pt alert and oriented. Pt pleasant and cooperative. Pt had complaints of pain rated at a 1; Pt had scheduled medications-Pt did not want any PRN medications during shift. Pt?s right LE reddened,warm, and edematous; redness has improved from time of admission. Pt?s dressing changed at 11 am with new dressing change order. Pt wearing shoe boot. Pt independent in room with walker.?
--- NOTE | 2023-01-14 14:35 | PC.NURSE ---
Pt to discharge home this afternoon. IV removed catheter intact. Son to belt picker Pt.
--- NOTE | 2023-01-14 15:37 | P.DS_ITS ---
DS: Providers Provider Time Seen by Provider: 09:00 Date Seen: 01/14/23 Date of admission: 01/11/23 14:03 Primary care physician: Not a Local Provider Admitting Clinician: Mylene Camejo MD Consults: 01/11/23 13:15 Consult to Physical Therapy [CONS] Routine Comment: Reason(s) for PT Consult:: Evaluate and Treat Any Restrictions?:: No Restrictions Attending Physician on discharge: Tom Ames MD Date of Discharge: 01/14/23 DS: Diagnosis Discharge Diagnosis (1) Diabetic ulcer of right great toe: Status: Acute Problem details: - in addition to RLE cellulitis - high risk patient given immunocompromised state as a diabetic, in addition to peripheral vascular disease and neuropathy - Zosyn initiated in the ED, later vancomycin added also - grew out Staph coccus aureus methicillin sensitive, switch to oral Augmentin at time of discharge, to complete 7 more days. - MRI ordered and Podiatry consulted MRI Right foot: soft tissue swelling about the great toe, vascular calcifications (2) Cellulitis of leg, right: Status: Acute (3) Type 2 diabetes mellitus: Status: Acute Problem details: - noninsulin dependent - continue home medications + SSI (4) Hyponatremia: Status: Acute Problem details: - potentially related to acute illness vs increased free water intake vs alcohol use - asymptomatic, mild, continue to follow Sodium improving 128->132 (5) Normocytic anemia: Status: Acute Problem details: - new, per chart review - I am concerned this represents gastritis in the setting of ibuprofen and alcohol use, although patient is asymptomatic - initiate omeprazole, decrease dosing of ibuprofen, trial alternative therapies for pain - continue outpatient follow-up for anemia workup (known B12 deficiency from PVD workup, no history of anemia prior) (6) Gram-positive bacteremia: Status: Acute Problem details: -added vancomycin to his Zosyn antibiotic regimen initiated in the emergency department. For the 1st set of cultures, 1 of 2 grew out coagulase negative Gram-positive cocci in clusters, consistent with contaminant. Second set of cultures were negative. Nasal MRSA was negative. DS: Summary Hospital Course Hospital Course: Patient has clinical exam concerning for cellulitis with underlying right great toe ulceration which is most definitely infected. Also with his recent history, need to consider thromboembolic disease. He has no fevers, no hemodynamic changes concerning for any sepsis. Obtained baseline labs, x-ray the foot did not demonstrate radiographic changes of osteomyelitis on x-ray. Will ultrasound this right lower extremity to rule out any thromboembolic disease. Time spent discussing smoking cessation with patient: 3 to 10 minutes Status at Discharge Functional status at discharge: uses cane/walker Overall status at discharge: patient is progressing back to baseline Time Spent with Patient Time attestation: Total time spent providing and/or coordinating discharge services: Time spent: Greater than 30 minutes Exam Narrative: Exam Narrative: Examined patient in his room. Vision and hearing are grossly normal. Alert and oriented times person, place, time, situation. Friendly, cooperative, articulate, with mood and affect are congruent. Lungs: Clear. Cardiac: S1S2. Right leg: Erythema decreasing circumferentially along the distal anterior posterior lower extremity. Wound is shallow but large about the size of a quarter on the pad of his right big toe and into the margin between his 1st 2nd toes. Good pulses. Const: Vital Signs, click to edit/add: Vital Signs - 24 hr 01/13/23 19:50 01/13/23 22:32 01/13/23 22:32 Temperature 97.9 F Pulse Rate [Pulse Oximeter] 76 68 Respiratory Rate 16 16 16 Blood Pressure [Ri ght Arm] 150/77 H Pulse Oximetry 93 95 Oxygen Delivery Me thod Room Air Room Air 01/13/23 22:32 01/14/23 02:00 01/14/23 07:55 Temperature 98.1 F 98.2 F Pulse Rate [Pulse Oximeter] 68 66 Respiratory Rate 16 16 16 Blood Pressure [Ri ght Arm] 146/76 H 132/73 Pulse Oximetry 95 96 96 Oxygen Delivery Me thod Room Air Room Air Room Air 01/14/23 08:08 01/14/23 11:00 Temperature 97.4 F L 98.2 F Pulse Rate [Pulse Oximeter] 69 60 Respiratory Rate 16 16 Blood Pressure [Ri ght Arm] 158/79 H 141/63 H Pulse Oximetry 96 92 Oxygen Delivery Me thod Room Air Room Air Documenting provider has reviewed patient's vital signs: yes DS: Data Data Completed and Pending Labs on day of discharge: Labs from last 24 hours 01/14/23 05:48 WBC 10.14 RBC 3.44 L Hgb 10.1 L Hct 31.4 L MCV 91 MCH 29 MCHC 32 Plt Count 357 Sodium 138 Potassium 4.5 Chloride 107 Carbon Dioxide 24 Anion Gap 7 BUN 8 Creatinine 0.7 Estimated Creat Clear 71.12 Estimated GFR 98 Glucose 82 Calcium 8.4 C-Reactive Protein 3.3 H Preliminary micro results at discharge 01/11/23 11:10 Wound Culture - Preliminary Toe Right Great Staphylococcus aureus 01/11/23 12:49 Blood Culture - Preliminary Blood NO GROWTH AFTER 72 HOURS 01/11/23 12:28 Blood Culture - Preliminary Blood Gram positive cocci in cluster 01/13/23 06:15 Blood Culture - Preliminary Blood NO GROWTH AFTER 24 HOURS 01/13/23 06:09 Blood Culture - Preliminary Blood NO GROWTH AFTER 24 HOURS Imaging MRI right foot: Radiologist's impression: IMPRESSION: 1. Cellulitis of the great toe with soft tissue wound and potentially skin blistering. 2. No deeper soft tissue collection. 3. No osteomyelitis or septic arthritis. 4. Degenerative changes. Discharge Plan Discharge Disposition: Home, Self-Care Date of Admission: 01/11/23 14:03 Attending Provider on Discharge: Tom Ames Consulting Providers: Fransisco Melendrez Primary Care Provider: Provider,Not a Local Condition: Improved Anticipated Discharge Date/Time: 01/14/23 15:00 Discharge Medications: New acetaminophen 325 mg Tablet 650 - 975 mg PO Q6H PRN1 Days Qty: 100 0RF tramadol 50 mg Tablet 50 - 100 mg PO Q6H PRN14 Days Qty: 20 0RF omeprazole 20 mg Capsule,Delayed Release(Dr/Ec) 40 mg PO DAILY@0700 Qty: 30 0RF amoxicillin-pot clavulanate 875-125 mg tablet 1 tab PO BID Qty: 14 0RF Continued amlodipine 10 mg tablet 10 mg PO DAILY glipizide 10 mg tablet 10 mg PO BID metoprolol tartrate 100 mg tablet 100 mg PO BID metformin 1,000 mg tablet 1,000 mg PO BIDWMEAL atorvastatin 20 mg tablet 20 mg PO QHS benazepril 20 mg tablet 40 mg PO DAILY Qty: 30 0RF Discharge Orders: Discharge Order (Routine); Ordered 01/14/23 Ordered By: Tom Ames Patient Education: Omeprazole (By mouth), Amoxicillin/Clavulanate Potassium (By mouth), Tramadol (By mouth), Foot Care for People with Diabetes (DC), Diabetic Foot Ulcers (DC), What to Do if Your Blood Sugar is Low (DC), Type 2 Diabetes Management for Adults (DC) Additional Instructions: 1. DRESSING ORDERS, Right hallux DFU on plantar surface: 1. remove dressing; 2. wash wound with soap and water, rinse, pat dry; 3. apply VASHE soaked gauze to wound bed x 10 minutes and then remove; 4. iodosorb to wound bed; 5. apply covaderm-bordered gauze (4x4); 6. tape optifoam to outside of bordered gauze do not apply tape to skin, only to the gauze; 7. cover with coban wrap; 8. use surgical shoe with any weight bearing or walking or transferring to off- load the wound; 9. Keep dressing in place until follow-up in the wound clinic this week; 10. Keep right foot clean and dry. 2. Use surgical shoe on affected foot with any standing, weight bearing; use cane or walker while using surgical shoe; in time your wound resident care spec will establish an intermediate and a director long term care plan for off-loading and reducing risk of future diabetic foot ulcer recurrence. 3. [facility] wound care clinic appointment this week. 4. Keep follow-up appointments with your primary resident care spec. Activity Level: No Restrictions, Use Cane, Use Walker and Other Activity Detail: Use surgical shoe temporarily for off-loading your diabetic foot ulcer. Discharge Diet: Diabetic Follow Up Appointments: Provider,Not a Local [Primary Care Provider] - Trina Thorpe CNP [Nurse Practitioner] - 01/24/23 12:45 pm ([facility]. If you don't hear from them in a couple days may need to call them ) Forms: [employer] Info Instructions
--- NOTE | 2023-01-14 15:51 | PC.NURSE ---
Discharge Summary: Patient discharged home at 1537 with all personal belongings accompanied by family. Discharge instructions including diagnosis, medications and follow up appointment discussed with patient and voiced understanding. SL removed by day shift RN.
== END 2023-01-14 15:37 | disposition home or self-care (01) | DRG 623 ==
LOC: ED 12:22 → MEDSURG 12:56
PROVIDERS: Family Medicine; Admitting Provider Family Medicine; Emergency Provider Family Medicine; Visit Provider Family Medicine
DX: E11.621 Type 2 diabetes mellitus with foot ulcer (principal); D84.81 Immunodeficiency due to conditions classified elsewhere; E87.1 Hypo-osmolality and hyponatremia; Z16.30 Resistance to unspecified antimicrobial drugs; L03.031 Cellulitis of right toe; E11.628 Type 2 diabetes mellitus with other skin complications; L97.511 Non-pressure chronic ulcer of other part of right foot limited to breakdown of skin; Z79.84 Long term (current) use of oral hypoglycemic drugs; E11.51 Type 2 diabetes mellitus with diabetic peripheral angiopathy without gangrene; E11.42 Type 2 diabetes mellitus with diabetic polyneuropathy; E66.01 Morbid (severe) obesity due to excess calories; I48.91 Unspecified atrial fibrillation; D64.9 Anemia, unspecified; B95.61 Methicillin susceptible Staphylococcus aureus infection as the cause of diseases classified elsewhere
CPT/HCPCS: 36415; 73630; 73718; 80048; 80053; 82803; 82962; 83036; 83605; 84145; 85025; 85027; 85379; 86140; 87040; 87070; 87081; 87186; 93005; 93971; 97161; 99284; 99285; A9270; J1650; J2543; J3370; J7120

== ENCOUNTER 2023-01-31 12:43 | Outpatient (CLI) | payer OTHER, SELFPAY | END 2023-01-31 12:44 | disposition home or self-care (01) | LOC: WOUND 12:45 | PROVIDERS: Visit Provider Nurse Practitioner Family | DX: E11.621 Type 2 diabetes mellitus with foot ulcer (principal); L97.518 Non-pressure chronic ulcer of other part of right foot with other specified severity; Z79.84 Long term (current) use of oral hypoglycemic drugs | CPT/HCPCS: 97597; 99213 ==

== ENCOUNTER 2023-02-07 13:27 | Outpatient (CLI) | payer OTHER, SELFPAY ==
--- NOTE | 2023-02-07 15:00 | CRLHL7_ITS ---
For Patients: As a result of the Century Cures Act, medical imaging exams and procedure reports are released immediately into your electronic medical record. You may view this report before your referring provider. If you have questions, please contact your health care provider. CLINICAL HISTORY: Non-healing wound. COMPARISON: None available. TECHNIQUE: Duplex arterial ultrasound examination bilateral lower extremities with 2D and spectral analysis and color Doppler imaging. FINDINGS: RIGHT: PSV (cm/s). Waveform (Tri-T, Bi-B [place]-M). TRAIN CONTROL ELECTRONIC TECHNICIAN: 90. T DFA: 88. T FA PRX: 75. T FA MID: 104. T FA DISTAL: 109. T POP A: 86. T OLMAN A: --- --- FLIGHT TEACHER: 75. T IVAN: 65. T DPA: 72. M LEFT: PSV (cm/s). Waveform (Tri-T, Bi-B [place]-M). TRAIN CONTROL ELECTRONIC TECHNICIAN: 101. T DFA: 81. T FA PRX: 105. T FA MID: 93. T FA DISTAL: 42. M POP A: ?. M OLMAN A: 42. M FLIGHT TEACHER: 41. M IVAN: 74. M DPA: 21. M Rim calcification is seen throughout bilateral lower extremities which is most commonly seen in diabetics and patient with end-stage renal disease. It does cause obscuration of portions, particularly the left popliteal artery not well visualized and a velocity could not be obtained there. IMPRESSION: Rim calcified bilateral atherosclerotic disease with a transition to monophasic waveforms on the left and for the right DP. If there is a non-healing wound on the left, further evaluation could be obtained with a CTA or MRA runoff. Jefry Hammonds M.D. Interventional Radiology/Diagnostic Radiology (IR/DR) [email or web address] BRYAN/laurie sullivan/Dictated by: Jefry Hammonds MD @ 02/08/2023 7:48:00 AM (Electronically Signed)
== END 2023-02-07 13:28 | disposition home or self-care (01) ==
LOC: WOUND 13:27
PROVIDERS: Visit Provider Nurse Practitioner Family
DX: E11.621 Type 2 diabetes mellitus with foot ulcer (principal); L97.518 Non-pressure chronic ulcer of other part of right foot with other specified severity; Z79.84 Long term (current) use of oral hypoglycemic drugs
CPT/HCPCS: 93926; 99212

== ENCOUNTER 2023-02-21 11:02 | Outpatient (CLI) | payer OTHER, SELFPAY | END 2023-02-21 11:03 | disposition home or self-care (01) | LOC: WOUND 11:02 | PROVIDERS: Visit Provider Nurse Practitioner Family | DX: E11.621 Type 2 diabetes mellitus with foot ulcer (principal); L97.518 Non-pressure chronic ulcer of other part of right foot with other specified severity; Z79.84 Long term (current) use of oral hypoglycemic drugs | CPT/HCPCS: 99212 ==

== ENCOUNTER 2023-11-15 15:28 | Emergency (ER) | payer OTHER, SELFPAY ==
[2023-11-15 15:35] VITALS: BP 172/95; PULSE 70; RESP 20; TEMP 36.7; O2SAT 95; BMI 33.5
--- NOTE | 2023-11-15 15:51 | ED_ITS ---
HPI - General Adult General Chief complaint: Allergic Reaction Stated complaint: Swelling around jaw Time Seen by Provider: 11/15/23 15:51 Source: patient Mode of arrival: ambulatory Limitations: no limitations History of Present Illness HPI narrative: 73-year-old male presenting today with swelling of his cheeks and lips. Patient states that this is the 3rd time this has occurred. The 1st time was approximately a month ago, the 2nd time about 2 weeks ago. His face and lips becomes swollen and it lasts about 20-24 hours and then goes away. He has no associated swelling of the tongue, back of the mouth, throat. He has no associated rash when this occurs. No fevers or chills. No nausea or vomiting. He denies any new medications, foods, lotions or soaps. He states that he has no difficulty breathing or swallowing. No changes in his voice quality or sound. Patient states that the swelling is already about half way better than it was early this morning. Related Data Home Medications ?Medication ?Instructions ?Recorded ?Confirmed amlodipine 10 mg tablet 10 mg PO DAILY 01/11/23 11/15/23 atorvastatin 20 mg tablet 20 mg PO QHS 01/11/23 11/15/23 glipizide 10 mg tablet 10 mg PO BID 01/11/23 11/15/23 metformin 1,000 mg tablet 1,000 mg PO BIDWMEAL 01/11/23 11/15/23 metoprolol tartrate 100 mg tablet 100 mg PO BID 01/11/23 11/15/23 Previous Rx's ?Medication ?Instructions ?Recorded acetaminophen 325 mg tablet 650 - 975 mg (2 - 3 x 325 mg) PO 01/14/23 Q6H PRN 1 day #100 tabs amoxicillin 875 mg-potassium 1 tab PO BID #14 tabs 01/14/23 clavulanate 125 mg tablet benazepril 20 mg tablet 40 mg (2 x 20 mg) PO DAILY #30 tabs 01/14/23 omeprazole 20 mg capsule,delayed 40 mg (2 x 20 mg) PO DAILY@0700 01/14/23 release #30 caps tramadol 50 mg tablet 50 - 100 mg (1 - 2 x 50 mg) PO Q6H 01/14/23 PRN 14 days #20 tabs Allergies Allergy/AdvReac Type Severity Reaction Status Date / Time No Known Drug Allergies Allergy Verified 01/11/23 10:41 Review of Systems Status of ROS: Reports: 10 or more systems reviewed and unremarkable except as noted in History and below PFSH [facility] Medical History Morbid obesity ?E66.01 - Morbid (severe) obesity due to excess calories (ICD-10) Type 2 diabetes mellitus ?E11.9 - Type 2 diabetes mellitus without complications (ICD-10) Atrial fibrillation ?I48.91 - Unspecified atrial fibrillation (ICD-10) B12 deficiency ?E53.8 - Deficiency of other specified B group vitamins (ICD-10) Lumbosacral radiculopathy at L5 ?M54.17 - Radiculopathy, lumbosacral region (ICD-10) Spinal stenosis ?M48.00 - Spinal stenosis, site unspecified (ICD-10) Surgical History Status post ablation of atrial fibrillation ?Z98.890 - Other specified postprocedural states (ICD-10) ?Z86.79 - Personal history of other diseases of the circulatory system (ICD- 10) Social History Narrative: Lives with Veena (would be medical decision maker, if needed) of 37 years in [place]. Shayne is Veena's primary caregiver. They have 3 adult children. Previously worked for [employer]. Occasional cigar smoker. Drinks daily for most of the year (typically takes May). No history of withdrawal. What is your current living situation?: I presently have a place to live Problems where you live: no known problems Problems where you live details: NA In the past 12 months, utilities in danger of being shut off: no In past 12 months, lack of transportation kept you from medical appts, meetings, work, or getting things needed for daily living: no In the past 12 mos, have been you worried that your food would run out before you had money to buy more?: never true In the past 12 mos, the food you bought just didn't last and you didn't have money to buy more?: never true Highest level of school completed/degree received: 12th grade, no diploma Smoking Status: Light tobacco smoker What tobacco products do you use: cigars Nicotine containing products detail: Smokes cigars on occasion Second hand tobacco smoke exposure: Yes How often do you have a drink containing alcohol: 4 or more times a week Alcohol type: beer How many standard drinks containing alcohol do you have on a typical day: 1 or 2 How often do you have six or more drinks on one occasion: Never AUDIT-C Alcohol total score: 4 Non-prescribed substance use: denies use Caffeine: Yes How often does anyone, including family, friends and others, physically hurt you : never How often does anyone, including family, friends and others, insult or talk down to you: never How often does anyone, including family, friends and others, threaten you with harm: never How often does anyone, including family, friends and others, scream or curse at you: never Gender Identity: male service: Yes Exam Narrative: Exam Narrative: Obese, well-developed patient in no acute distress. Alert and oriented. Answers questions appropriately. Mood and affect are appropriate. Thoughts are goal oriented and rational. No tangential or magical thinking noted. Patient speaks in full sentences without needing to catch his breath. Speech is not slurred or pressured. Voice is not muffled or congested. HEENT: Atraumatic. Pupils are equally round reactive to light. Extraocular muscles are intact. Conjunctivae are moist without any icterus noted. Moist mucous membranes. Posterior pharynx is normal, there is no swelling of the uvula or soft palate. Neck is soft without any lymphadenopathy or thyromegaly. No masses are appreciated. His lips are swollen. His tongue is entirely normal. Has some soft swelling of the cheeks just next to the lips any has a little bit of swelling also of the upper and lower eyelid of the left eye. Cardiovascular: Heart is regular rate and rhythm S1 and S2 are present without any murmurs. Lungs: Clear to auscultation bilaterally no wheezes rhonchi or rales are appreciated. Patient takes deep breaths without any discomfort. Abdomen: Soft and nontender nondistended with normal bowel sounds. Extremities: Left lower extremities normal, 1+ edema of the right lower extremity which is normal per the patient. Skin: Well perfused. Const: Vital Signs, click to edit/add: Vital Signs - 24 hr 11/15/23 15:35 Temperature 98.1 F Pulse Rate [Right Pulse Oximeter] 70 Respiratory Rate 20 Blood Pressure [Ri ght Upper Arm] 172/95 H Pulse Oximetry 95 Oxygen Delivery Me thod Room Air Course Vital Signs Vital signs: Initial Vital Signs Temperature 98.1 F 11/15/23 15:35 Temperature Source Temporal Artery Scan 11/15/23 15:35 Pulse Rate 70 11/15/23 15:35 Respiratory Rate 20 11/15/23 15:35 Blood Pressure 172/95 H 11/15/23 15:35 Blood Pressure Mean 120 H 11/15/23 15:35 Blood Pressure Position Sitting 11/15/23 15:35 Pulse Oximetry 95 11/15/23 15:35 Oxygen Delivery Method Room Air 11/15/23 15:35 Vital Signs Temperature 98.1 F 11/15/23 15:35 Pulse Rate 70 11/15/23 15:35 Respiratory Rate 20 11/15/23 15:35 Blood Pressure 172/95 H 11/15/23 15:35 Pulse Oximetry 95 11/15/23 15:35 Oxygen Delivery Method Room Air 11/15/23 15:35 Temperature 98.1 F 11/15/23 15:35 Pulse Rate 70 11/15/23 15:35 Respiratory Rate 20 11/15/23 15:35 Blood Pressure 172/95 H 11/15/23 15:35 Pulse Oximetry 95 11/15/23 15:35 Oxygen Delivery Method Room Air 11/15/23 15:35 Medical Decision Making MDM Narrative Medical decision making narrative: 73-year-old male with what appears to be angioedema. Patient is taking benazepril. This does not appear to be typical allergic reaction, given the distribution as well as the frequency of it. At this time recommend he stop taking his benazepril. He will follow up with primary care provider to discuss blood pressure management. Discharge Plan Discharge Clinical Impression: Angioedema Patient Disposition: Home, Self-Care Condition: Stable Additional Instructions: You appear to have a condition that is commonly caused by 1 of the medications that you are taking: Benazepril. You should stop taking this medication. You do need to follow-up with your primary care provider right away to discuss appropriate blood pressure management as you will likely need something to replace the benazepril. Return to the ER if you feel like your tongue is getting swollen, or you cannot speak, breathe or swallow normally. These are not things at are expected to happen. Prescriptions: No Action amlodipine 10 mg tablet 10 mg PO DAILY glipizide 10 mg tablet 10 mg PO BID metoprolol tartrate 100 mg tablet 100 mg PO BID metformin 1,000 mg tablet 1,000 mg PO BIDWMEAL atorvastatin 20 mg tablet 20 mg PO QHS acetaminophen 325 mg Tablet 650 - 975 mg PO Q6H PRN1 Days Qty: 100 0RF tramadol 50 mg Tablet 50 - 100 mg PO Q6H PRN14 Days Qty: 20 0RF omeprazole 20 mg Capsule,Delayed Release(Dr/Ec) 40 mg PO DAILY@0700 Qty: 30 0RF benazepril 20 mg tablet 40 mg PO DAILY Qty: 30 0RF amoxicillin-pot clavulanate 875-125 mg tablet 1 tab PO BID Qty: 14 0RF Follow Up/Referrals: Selena Flores Provider [Primary Care Provider] - Stand Alone Forms: MyHealth Info Instructions
--- OUTSIDE RECORDS SUMMARY | 2023-11-15 16:18 | XMS_ITS | Encounter Summary ---
Author Name [facility] [place] [facility] [place] [facility] [place] Address [address] [place] [address] Care Team Providers Care Administrative Services Assistant Name Role Phone EVA KARY Primary Care Provider Unavail able Insurance Providers: All historical and current Section Date Range: From patient's date of to the date document was created. This section includes the names of all active insurance providers for the patient. Insurance Provider Type of Coverage Plan Name Start of Policy Coverage End of Policy Coverage Group Number Member ID Insurance Provider's Telephone Number Policy Bright's Name Patient's Relationship to Policy Bright MEDICARE (WNR) MEDICARE (M) PART A Apr 19, 2015 PART A [phone] [place] PATIENT Selected Encounter This section includes the information on record at CT for the Encounter. Date/Time Encounter Type Encounter Description Reason Provider Source Jan 24, 2023 09:30 AM OFF/OP EST SEPTEMBER X REQ PHY/QHP PRIMARY CARE/MEDICINE ICD-10-CM E11.9 Type 2 diabetes mellitus without complications [facility] Encounter Template Text not used by CT Assessments - Encounter Diagnoses This section includes the primary and secondary diagnoses documented for the Encounter. Date/Time Primary/Secondary Diagnosis Diagnosis Name Provider Source Jan 24, 2023 10:13 AM PRIMARY Type 2 diabetes mellitus without complications [facility] Plan of Treatment: Future Appointments (+ 6 months) and Future Tests (+/- 45 days) The Plan of Treatment section includes future care activities for the [facility] This section includes future appointments and future orders which are active, pending or scheduled. Future Appointments This section includes appointments that were scheduled to occur 6 months from the date of the Encounter, up to a maximum of 20 appointments. The data comes from all CT treatment facilities. Appointment Date/Time Appointment Type Appointme nt Facility Name Feb 11, 2023 09:00 AM [facility] Feb 19, 2023 08:30 AM [facility] Mar 11, 2023 01:30 PM [facility] Lab Results: +/- 30 days of the encounter This section includes the Chemistry and Hematology Lab Results on record with CT for the patient. Radiology Reports and Pathology Reports are provided separately, in subsequent sections. Lab Results This section contains the Chemistry/Hematology Results that were resulted 30 days before or 30 daysafter the date of the Encounter. Date/Time Source Result Type Result - Unit Interpretation Reference Range Comment Jan 24, 2023 10:01 AM [facility] HEMOGLOBIN A1C Specimen Type: BLOOD Comment: Values obtained from A1C measurements can vary. For typical A1C assays, a reported value of 7.0 could actually be between 6.7 and 7.3 if measured by a reference method. A reported value of 9.0 could actually be between 8.7 and 9.3. Ref: http://www.ngs p.org/CAPdata. asp Ordering Provider: BONNIE VELASQUEZ Report Released Date/Time: Jan 15, 2023 12:19 PM Reporting Lab: [facility] [id number] Performing Lab: [facility] [id number] HEMOGLOBIN A1C 6.8 H 4.0-6.0 Jan 24, 2023 10:01 AM [facility] CBC & DIFF Specimen Type: BLOOD Comment: Automated Differential Performed Ordering Provider: BONNIE VELASQUEZ Report Released Date/Time: Jan 15, 2023 12:19 PM Reporting Lab: [facility] [id number] Performing Lab: [facility] [id number] WBC 9.70 10*3/uL 4.0-11.0 RBC 3.89 10*6/uL L 4.6-6.2 HGB 11.6 g/dL L 13.5-17.9 HCT 34.7 L 41-54 MCV 89.2 fL 80-100 MCH 29.8 pg 27-33 MCHC 33.4 g/dL 32.0-37.5 PLT 413 10*3/uL H 150-400 MPV 10.4 fL 7.4-10.4 NEUT 65.4 40.0-80.0 LYMPHS 16.5 15.0-45.0 MONO 10.5 2.0-12.0 EOSINO 5.8 0.0-6.0 BASO 1.2 0.0-2.0 RDW 13.6 11.5-14.5 ABS LYMPH 1.60 10*3/uL 1.0-4.0 ABS MONO 1.02 10*3/uL H 0.1-1.0 ABS NEUT 6.34 10*3/uL 2.0-7.7 ABS EOS 0.56 10*3/uL H 0-0.5 ABS BASO 0.12 10*3/uL 0-0.2 IG(META,MYELO,P RO) 0.6 ABS IMMATURE GRAN 0.06 10*3/uL 0-0.1 Jan 24, 2023 10:01 AM [facility] COMPREHENSIVE METABOLIC PANEL+MG Specimen Type: PLASMA No comment entered. Ordering Provider: BONNIE VELASQUEZ Report Released Date/Time: Jan 15, 2023 12:19 PM Reporting Lab: [facility] [phone] Performing Lab: [facility] [phone] CREATININE 0.9 mg/dL 0.7-1.2 UREA NITROGEN 10 mg/dL 8-26 GLUCOSE 76 mg/dL 70-100 SODIUM 134 mmol/L L 136-145 POTASSIUM 5.4 mmol/L H 3.5-5.1 CHLORIDE 103 mmol/L 98-107 CO2 22 mmol/L 22-29 CALCIUM 9.3 mg/dL 8.4-10.2 PROTEIN,TOTAL 7.8 g/dL 6.0-8.3 ALBUMIN 3.9 g/dL 3.5-5.2 BILIRUBIN, TOTAL 0.4 mg/dL 0.2-1.2 MAGNESIUM 1.7 mg/dL 1.6-2.6 ANION GAP 9 mmol/L 5-15 ALKALINE PHOSPHATASE 71 U/L 40-150 ALT/SGPT 16 U/L <55 AST/SGOT 16 U/L <34 .CREAT EGFR(CKD-EPI) >90 >60 Jan 24, 2023 10:01 AM [facility] LACTIC ACID Specimen Type: PLASMA No comment entered. Ordering Provider: BONNIE VELASQUEZ Report Released Date/Time: Jan 24, 2023 09:54 AM Reporting Lab: [facility] [phone] Performing Lab: [facility] [phone] LACTIC ACID 1.6 mmol/L 0.5-2.2 Vital Signs: All taken on the encounter date This section contains inpatient and outpatient Vital Signs collected on the date of the Encounter. Date/Time Temperature Pulse Blood Pressure Respiratory Rate SP02 Pain Height Weight Body Mass Index Source Jan 24, 2023 09:40 AM 97.9 F 71 /min 159/90 mm[Hg] 16 /min 96 % 2 240.8 lb 36 [facility] Social History: Smoking Status (Most current) and Tobacco Use (All prior to encounter date) This section includes the most current, and the historical, smoking and tobacco- related health factors from the [place] facility where the Encounter took place. Current Smoking Status This section includes the most current smoking, or tobacco-related health factor, from the [place] facility where the Encounter took place. Date/Time Current Smoking Status Comment Facil ity Aug 31, 2022 10:00 AM VA-TOBACCO NEVER USED [facility] Tobacco Use History This section includes a history of the smoking, or tobacco-related health factors, that were collected on or before the date of the Encounter. The data comes from the [place] facility where the Encounter took place. Date/Time Smoking Status/Tobacco Use Comment F acility Sep 12, 2021 10:30 AM VA-TOBACCO DOESNT USE WI 30 MIN WAKEUP [facility] Sep 12, 2021 10:30 AM VA-TOBACCO USE 30 YEARS OR MORE [facility] Sep 12, 2021 10:30 AM VA-TOBACCO USE ADVICE [facility] Sep 12, 2021 10:30 AM VA-TOBACCO USE SU[employer] [facility] Sep 12, 2021 10:30 AM VA-TOBACCO USE MED NO [facility] Sep 12, 2021 10:30 AM VA-TOBACCO USER SOME DAYS [facility] Sep 12, 2020 09:30 AM VA-TOBACCO DOESNT USE WI 30 MIN WAKEUP [facility] Sep 12, 2020 09:30 AM VA-TOBACCO USE 30 YEARS OR MORE [facility] Sep 12, 2020 09:30 AM VA-TOBACCO USE ADVICE [facility] Sep 12, 2020 09:30 AM VA-TOBACCO USE SUPER[employer] [facility] Sep 12, 2020 09:30 AM VA-TOBACCO USE MED NO [facility] Sep 12, 2020 09:30 AM VA-TOBACCO USER SOME DAYS [facility] Sep 07, 2019 01:41 PM VA-TOBACCO DOESNT USE WI 30 MIN WAKEUP [facility] Sep 07, 2019 01:41 PM VA-TOBACCO USE 30 YEARS OR MORE [facility] Sep 07, 2019 01:41 PM VA-TOBACCO USE ADVICE [facility] Sep 07, 2019 01:41 PM VA-TOBACCO USE SU[employer] [facility] Sep 07, 2019 01:41 PM VA-TOBACCO USE MED NO [facility] Sep 07, 2019 01:41 PM VA-TOBACCO USER EVERY DAY [facility] Aug 26, 2017 01:57 PM CURRENT TOBACCO USER [facility] Mar 11, 2017 09:34 AM CURRENT TOBACCO USER [facility] Advance Directives: All historical and current Section Date Range: From patient's date of to the date document was created. This section includes ALL of a patient's completed or amended CT Advance and Rescinded Directives. The entries below indicate that a directive exists for the patient, but an actual copy is not included with this document. The data comes from all CT facilities. Date Advance Directives Provider Source Aug 11, 2017 CLINICAL WARNING [facility] Encounter Notes: All associated encounter notes This section contains the clinical notes associated to the Encounter. Date/Time Encounter Note(s) Provider Source Jan 24, 2023 09:39 AM NURSING OUTPATIENT NOTE: LOCAL TITLE[facility] N[facility] RN NOTE STANDARD TITLE: NURSING OUTPATIENT NOTE DATE OF NOTE: JAN 24, 2023@09:39 ENTRY DATE: JAN 24, 2023@09:39:04 AUTHOR: MYRNA IQBAL EXP COSIGNER: URGENCY: STATUS: COMPLETED [facility] NURSING RN NOTE Has ADDENDA TYPE OF VISIT: Nurse Clinic REASON FOR VISIT: Hospitalization f/u María was hospitalized for R great toe diabetic ulcer and RLE cellulitis. Abnormal labs: WBC 16, Lactate 3.2, Hgb 10.5, Na 128 - recheck today. María arrives with his . María has his R foot in a surgical shoe with tubigrip to his ankle. Dressing was completed yesterday by his daughter, dressing is intact, leader writer did not remove dressing. R villa is red but has improved significantly per vet and spouse. He was dc'd on PO abx which he notes he completed 2 days ago. He has been utilizing Advil 1-2/day for 2/10 R foot pain. Back pain has been a bigger issue. Chiropractic consult cancelled d/t not having [facility] documentation. [employer] Sheet Supervisor notified HARRY WhitingI RN, about vet changing from [facility] (who he saw last fall) to [facility] in [place]. She will reach out to [facility] for documentation. [employer] Supervisor provided fax number to vet and spouse as they relay that they had requested [facility] Originally requested coverage 12/28, details obtained 01/10, order placed by PCP on 01/19. Vet and spouse relay that they have about $300 due for visits since requesting coverage, leader writer inquired w/Ms Shaver about backdating consult. Clinic VS: 0940: 159/ 71 0947: 157/ 71 0952: 161 71 ALLERGIES: FACILITY ALLERGY/ADR -------- No Remote Allergy/ADR Data available for this patient [facility] No Known Allergies MEDICATION Active Outpatient Medications (including Supplies): AMLODIPINE BESYLATE 10MG TAB TAKE ONE TABLET BY MOUTH ACTIVE EVERY DAY FOR BLOOD PRESSURE ATORVASTATIN CALCIUM 20MG TAB TAKE ONE TABLET BY MOUTH ACTIVE EVERY DAY FOR CHOLESTEROL BENAZEPRIL HCL 20MG TAB TAKE TWO TABLETS BY MOUTH EVERY ACTIVE DAY FOR BLOOD PRESSURE GLIPIZIDE 10MG TAB TAKE ONE TABLET BY MOUTH TWICE A DAY ACTIVE FOR DIABETES -TAKE 30 MINUTES BEFORE MEAL METFORMIN HCL 1000MG TAB TAKE ONE TABLET BY MOUTH TWICE A ACTIVE DAY TO DECREASE BLOOD SUGAR -TAKE WITH FOOD METOPROLOL TARTRATE 100MG TAB TAKE ONE TABLET BY MOUTH ACTIVE TWICE A DAY FOR HEART RHYTHM Non-VA MULTIVITAMIN CAP/TAB 1 TABLET MOUTH EVERY DAY ACTIVE Non-VA NON VA MED NOT LISTED MISCELLANEOUS BIO FLEX ACTIVE PLAN: -Lab draw for re-evaluation of abnormal labs during hospitalization. -RTC placed for telephone appt w/leader writer in 2 weeks for BP f/u. -Fax number provided to vet/spouse for faxing of records from [facility]. -Vet will contact [facility] if needs arise. -Vet will seek UC/ED if severe/life-threatening symptoms arise. /anahi/ [facility] [place] PACT RN Signed: 01/24/2023 10:13 Receipt Acknowledged By: 01/27/2023 12:15 /es/ KARY VELASQUEZ CNP NP [facility] 01/24/2023 ADDENDUM STATUS: COMPLETED was seen once at [facility] on 12/21/2021, record is in [facility]. /es/ SEAMUS SHAVER RN Referral Coordination Team Signed: 01/24/2023 13:56 [facility]
--- OUTSIDE RECORDS SUMMARY | 2023-11-15 16:18 | XMS_ITS | Continuity of Care Document ---
Author Name [facility] Organization [facility] Care Team Providers Care Systems Integration Advisor Name Role Phone [facility] Unavailable Unavailable Problems Combined list of problems from [facility] and [facility] facilities. It does not include entries that were removed or entered in error. Problem Status Onset Date Problem Type Date of Resolution Comments Source Atrial flutter Active Condition [facility] Back pain Active Condition [facility] Cardiomegaly Active Condition [facility] Diabetes mellitus Active Condition [facility] Gout (SNOMED CT 35170353) Active Condition [facility] H/O: atrial fibrillation Active Condition [facility] Hypertension (SNOMED CT 23271479) Active Condition [facility] Hypertensive disorder Active Condition [facility] Long-term current use of anticoagulant Active Condition Mar 11, 2023 Entered By: DEVANTE VELASQUEZ Comment: History [facility] Obesity Active Condition [facility] Obstructive sleep apnea syndrome Active Condition [facility] Tinnitus Active Condition [facility] Diagnosis: ICD-10-CM I10 Essential (primary) hypertension Active Diagnosis [facility] Diagnosis: ICD-10-CM I48.92 Unspecified atrial flutter Active Diagnosis [facility] Diagnosis: ICD-10-CM E11.9 Type 2 diabetes mellitus without complications Active Diagnosis [facility] Diagnosis: ICD-10-CM M54.16 Radiculopathy, lumbar region Active Diagnosis [facility] Diagnosis: ICD-10-CM M54.9 Dorsalgia, unspecified Active Diagnosis [facility] Medications Combined list of outpatient medications from [facility] and [facility] facilities.Medications provided include 1) outpatient medications from the last 15 months, and 2) patient-reported medications. Medication Details Route Status Patient Instructions Prescription Expires Prescription Number Last Dispense Date Ordering Provider Order Date Order Qty Source AMLODIPINE BESYLATE 10MG TAB AMLODIPI NE BESYLATE 10MG TAB Active TAKE ONE TABLET BY MOUTH EVERY DAY FOR BLOOD PRESSURE Mar 11, 2023 90 Mar 11, 2024 [id number] October 09, 2023 [facility] ORAL ACTIVE 03/11/2024 [id number] 4 Jeanie VELASQUEZ HRISTINE N 2022 90 [facility] AMLODIPINE BESYLATE 10MG TAB AMLODIPI NE BESYLATE 10MG TAB Disconti nued TAKE ONE TABLET BY MOUTH EVERY DAY FOR BLOOD PRESSURE Jul 10, 2022 90 Jul 11, 2023 [id number] Jan 04, 2023 [facility] ORAL DISCONT INUED 07/11/2023 [id number] 3 Jeanie VELASQUEZ HRISTINE N 2022 90 [facility] ATORVASTATI N CA 20MG TAB ATORVAST ATIN CA 20MG TAB Active TAKE ONE TABLET BY MOUTH EVERY DAY FOR CHOLESTE ROL FOR CHOLESTE ROL Mar 11, 2023 90 Mar 11, 2024 [id number] September 23, 2023 [facility] ORAL ACTIVE 03/11/2024 [id number] 4 Jeanie VELASQUEZ HRISTINE N 2022 90 [facility] ATORVASTATI N CA 20MG TAB ATORVAST ATIN CA 20MG TAB Disconti nued TAKE ONE TABLET BY MOUTH EVERY DAY FOR CHOLESTE ROL FOR CHOLESTE ROL Aug 31, 2022 90 Sep 01, 2023 [id number] Nov 29, 2022 [facility] ORAL DISCONT INUED 09/01/2023 [id number] Jeanie VELASQUEZ HRISTINE N 2022 90 [facility] BENAZEPRIL HCL 20MG TAB BENAZEPR IL HCL 20MG TAB Active TAKE TWO TABLETS BY MOUTH EVERY DAY FOR BLOOD PRESSURE Mar 11, 2023 180 Mar 11, 2024 [id number] Aug 29, 2023 [facility] ORAL ACTIVE 03/11/2024 [id number] 4 Jeanie VELASQUEZ HRISTINE N 2022 180 [facility] BENAZEPRIL HCL 20MG TAB BENAZEPR [place] HCL 20MG TAB Disconti nued TAKE TWO TABLETS BY MOUTH EVERY DAY FOR BLOOD PRESSURE Aug 02, 2022 180 Aug 03, 2023 [id number] K Feb 22, 2023 [facility] ORAL DISCONT INUED 08/03/2023 [id number] 3 Jeanie VELASQUEZ HRISTINE N 2022 180 [facility] DOCUSATE NA 100MG CAP DOCUSATE NA 100MG CAP Disconti nued TAKE ONE CAPSULE BY MOUTH TWO TIMES A DAY NEEDED FOR CONSTIPA TION Mar 11, 2023 100 Mar 11, 2024 [id number] B Mar 11, 2023 [facility] ORAL DISCONT INUED BY PROVIDE R 03/11/2024 [id number] Jeanie VELASQUEZ N 2022 100 [facility] DOCUSATE NA 100MG CAP DOCUSATE NA 100MG CAP Disconti nued TAKE ONE CAPSULE BY MOUTH TWO TIMES A DAY NEEDED FOR CONSTIPA TION Jan 25, 2023 100 Jan 26, 2024 [id number] Jan 28, 2023 [facility] ORAL DISCONT INUED 01/26/2024 [id number] 3 Jeanie VELASQUEZ N 2022 100 [facility] FUROSEMIDE 20MG TAB FUROSEMI DE 20MG TAB Active TAKE ONE TABLET BY MOUTH EVERY DAY NEEDED FOR EXCESS FLUID FOR EXCESS FLUID Sep 10, 2023 90 Sep 10, 2024 [id number] Sep 10, 2023 [facility] ORAL ACTIVE 09/10/2024 [id number] Jeanie VELASQUEZ N 2023 90 [facility] GLIPIZIDE 10MG TAB GLIPIZID E 10MG TAB Active TAKE ONE TABLET BY MOUTH TWICE A DAY FOR DIABETES -TAKE 30 MINUTES BEFORE MEAL Mar 11, 2023 180 Mar 11, 2024 [id number] Nov 23, 2023 [facility] ORAL ACTIVE 03/11/2024 [id number] 4 MANISHARAQUELJeanie HRISTINE N 2023 180 [facility] GLIPIZIDE 10MG TAB GLIPIZID E 10MG TAB Disconti nued TAKE ONE TABLET BY MOUTH TWICE A DAY FOR DIABETES -TAKE 30 MINUTES BEFORE MEAL Aug 20, 2022 180 Aug 21, 2023 [id number] A Mar 01, 2023 [facility] ORAL DISCONT INUED 08/21/2023 [id number] 3 Jeanie VELASQUEZ HRISTINE N 2022 180 [facility] LIDOCAINE 5% PATCH LIDOCAIN E 5% PATCH Active APPLY 1 PATCH TOPICALL Y EVERY DAY FOR UP TO 12 HOURS FOR PAIN FOR UP TO 12 HOURS FOR PAIN Mar 11, 2023 90 Mar 11, 2024 [id number] Mar 11, 2023 [facility] TOPICA L ACTIVE 03/11/2024 [id number] Jeanie VELASQUEZ HRISTINE N 2022 90 [facility] METFORMIN HCL 1000MG TAB METFORMI N HCL 1000MG TAB Active TAKE ONE TABLET BY MOUTH TWICE A DAY TO DECREASE BLOOD SUGAR -TAKE WITH FOOD Dec 12, 2022 180 Dec 13, 2023 [id number] September 23, 2023 [facility] ORAL ACTIVE 12/13/2023 [id number] 4 Jeanie VELASQUEZ HRISTINE N 2022 180 [facility] METFORMIN HCL 1000MG TAB METFORMI N HCL 1000MG TAB Disconti nued TAKE ONE TABLET BY MOUTH TWICE A DAY TO DECREASE BLOOD SUGAR -TAKE WITH FOOD Dec 06, 2021 180 Dec 07, 2022 [id number] September 18, 2022 [facility] ORAL DISCONT INUED 12/07/2022 [id number] 3 Jeanie VELASQUEZ HRISTINE N 2021 180 [facility] METOPROLOL TARTRATE 100MG TAB METOPROL OL TARTRATE 100MG TAB Active TAKE ONE TABLET BY MOUTH TWICE A DAY FOR HEART RHYTHM Feb 11, 2023 180 Feb 12, 2024 [id number] Nov 11, 2023 [facility] ORAL ACTIVE 02/12/2024 [id number] 4 NSUBRAQUELJeanie HRISTINE N 2022 180 [facility] METOPROLOL TARTRATE 100MG TAB METOPROL OL TARTRATE 100MG TAB Disconti nued TAKE ONE TABLET BY MOUTH TWICE A DAY FOR HEART RHYTHM Feb 05, 2022 180 Feb 06, 2023 [id number] Nov 01, 2022 [facility] ORAL DISCONT INUED 02/06/2023 [id number] Jeanie VELASQUEZ HRISTINE N 2021 180 [facility] MULTIVITAMI NS CAP/TAB MULTIVIT AMINS CAP/TAB Non-VA TAKE ONE TABLET BY MOUTH EVERY DAY Aug 11, 2017 Non-VA Document ed by: ALFRED LOWE Document ed at: [facility] ORAL ACTIVE ANITA LOWE 2017 [place] [facility] NON VA MED NOT LISTED NON VA MED NOT LISTED Non-VA USE BIO FLEX May 23, 2021 Non-VA Document ed by: LORRAINE IGLESIAS Document ed at: [facility] ACTIVE LORRAINE IGLESIAS 2021 [place] [facility] SILDENAFIL CITRATE 100MG TAB SILDENAF [place] CITRATE 100MG TAB Active TAKE ONE-HALF TABLET BY MOUTH NEEDED FOR ERECTION S - TAKE 1 HOUR BEFORE ANTICIPA SURY SEXUAL ACTIVITY -- FOR SEXUAL ACTIVITY FOR ERECTION S - TAKE 1 HOUR BEFORE ANTICIPA SURY SEXUAL ACTIVITY -- FOR SEXUAL ACTIVITY Jan 25, 2023 9 Jan 26, 2024 [id number] Aug 22, 2023 [facility] ORAL ACTIVE 01/26/2024 [id number] 4 Jeanie VELASQUEZ HRISTINE N 2022 9 [facility] Immunizations Combined list of available immunizations from the Department of Defense and Veterans Affairs facilities. Immunization Series Date Given Administered By Site Reaction Lot Number CVX Code Drug Material Control Clerk Status Comments Source COVID-19 ([employer]), MRNA, LNP-S, PF, MARCOS-SUCROSE, 30 MCG/0.3 ML (AGES 12+ YEARS) 1 2022 JEREMIAS BU[place]N [place] [id number] 309 complet ed [facility] COVID-19 ([employer]), MRNA, LNP-S, BIVALENT BOOSTER, PF, 30 MCG/0.3 ML DOSE 1 2021 300 complet ed PFR; [id number]; 3 [facility] ZOSTER RECOMBINANT 1 2021 187 complet ed [facility] COVID-19 ([employer]), MRNA, LNP-S, PF, 30 MCG/0.3 ML DOSE 3 2020 208 complet ed [facility] COVID-19 ([employer]), MRNA, LNP-S, PF, 30 MCG/0.3 ML DOSE 2 2020 208 complet ed [facility] COVID-19 ([employer]), MRNA, LNP-S, PF, 30 MCG/0.3 ML DOSE 1 2020 208 complet ed [facility] TDAP 2014 115 complet ed [facility] ZOSTER LIVE 2013 121 complet ed [employer] (L)[id number], (E)[id number] [id number] [facility] TDAP 2009 115 complet ed [facility] INFLUENZA, SEASONAL, INJECTABLE 2008 141 complet ed [facility] TD(ADULT) UNSPECIFIED FORMULATION 2005 139 complet ed [facility] Results Combined list of recent chemistry, hematology and other laboratory results from Department of Defense and Veterans Affairs, ranging from 15 months to all on record, depending upon the facility. Order Name Results Value Reference Range Date Interpretation Specimen Comments Source OCCULT BLOOD FIT X1 SCREEN HEMOGLOBIN .GASTROINT ESTINAL.LO WER [PRESENCE] IN STOOL BY IMMUNOASSA Y Negative 09/25 Specimen Type: FECES No comment entered. Ordering Provider: DEVANTE VELASQUEZ Report Released Date/Time: Sep 02, 2023 08:14 AM Reporting Lab: [facility] [address] Performing Lab: [facility] [address] [facility] URINALYSI S COLOR OF URINE COLORLES S 09/09 Specimen Type: URINE No comment entered. Ordering Provider: DEVANTE VELASQUEZ Report Released Date/Time: Sep 10, 2023 12:28 PM Reporting Lab: [facility] [address] Performing Lab: [facility] [address] [facility] URINALYSI S SPECIFIC GRAVITY OF URINE 1.005 1.003 - 1.035 09/09 Specimen Type: URINE No comment entered. Ordering Provider: DEVANTE VELASQUEZ Report Released Date/Time: Sep 10, 2023 12:28 PM Reporting Lab: [facility] [address] Performing Lab: [facility] [address] [facility] URINALYSI S BILIRUBIN. TOTAL [PRESENCE] IN URINE BY TEST STRIP NEGATIVE 09/09 Specimen Type: URINE No comment entered. Ordering Provider: DEVANTE VELASQUEZ Report Released Date/Time: Sep 10, 2023 12:28 PM Reporting Lab: [facility] [address] Performing Lab: [facility] [address] [facility] URINALYSI S KETONES [MASS/VOLU ME] IN URINE BY TEST STRIP NEGATIVE 09/09 Specimen Type: URINE No comment entered. Ordering Provider: DEVANTE VELASQUEZ Report Released Date/Time: Sep 10, 2023 12:28 PM Reporting Lab: [facility] [address] Performing Lab: [facility] [address] [facility] URINALYSI S GLUCOSE [MASS/VOLU ME] IN URINE BY TEST STRIP NEGATIVE mg/dL 09/09 Specimen Type: URINE No comment entered. Ordering Provider: DEVANTE VELASQUEZ Report Released Date/Time: Sep 10, 2023 12:28 PM Reporting Lab: [facility] [address] Performing Lab: [facility] [address] [facility] URINALYSI S PROTEIN [MASS/VOLU ME] IN URINE BY TEST STRIP 10 mg/dL 09/09 Specimen Type: URINE No comment entered. Ordering Provider: DEVANTE VELASQUEZ Report Released Date/Time: Sep 10, 2023 12:28 PM Reporting Lab: [facility] [address] Performing Lab: [facility] [address] [facility] URINALYSI S PH OF URINE BY TEST STRIP 6.0 5.0 - 8.0 09/09 Specimen Type: URINE No comment entered. Ordering Provider: DEVANTE VELASQUEZ Report Released Date/Time: Sep 10, 2023 12:28 PM Reporting Lab: [facility] [address] Performing Lab: [facility] [address] [facility] URINALYSI S LEUKOCYTES [#/AREA] IN URINE SEDIMENT BY MICROSCOPY HIGH POWER FIELD NONE SEEN/[HP F] 0 - 7 09/09 Specimen Type: URINE No comment entered. Ordering Provider: DEVANTE VELASQUEZ Report Released Date/Time: Sep 10, 2023 12:28 PM Reporting Lab: [facility] [address] Performing Lab: [facility] [address] [facility] URINALYSI S BACTERIA [PRESENCE] IN URINE SEDIMENT BY LIGHT MICROSCOPY NONE SEEN 09/09 Specimen Type: URINE No comment entered. Ordering Provider: DEVANTE VELASQUEZ Report Released Date/Time: Sep 10, 2023 12:28 PM Reporting Lab: [facility] [address] Performing Lab: [facility] [address] [facility] URINALYSI S ERYTHROCYT ES [#/AREA] IN URINE SEDIMENT BY MICROSCOPY HIGH POWER FIELD NONE SEEN/[HP F] 0 - 3 09/09 Specimen Type: URINE No comment entered. Ordering Provider: DEVANTE VELASQUEZ Report Released Date/Time: Sep 10, 2023 12:28 PM Reporting Lab: [facility] [address] Performing Lab: [facility] [address] [facility] URINALYSI S APPEARANCE OF URINE CLEAR 09/09 Specimen Type: URINE No comment entered. Ordering Provider: DEVANTE VELASQUEZ Report Released Date/Time: Sep 10, 2023 12:28 PM Reporting Lab: [facility] [address] Performing Lab: [facility] [address] [facility] URINALYSI S EPITHELIAL CELLS.SQUA MOUS [#/AREA] IN URINE SEDIMENT BY MICROSCOPY HIGH POWER FIELD NONE SEEN/[HP F] 09/09 Specimen Type: URINE No comment entered. Ordering Provider: DEVANTE VELASQUEZ Report Released Date/Time: Sep 10, 2023 12:28 PM Reporting Lab: [facility] [address] Performing Lab: [facility] [address] [facility] URINALYSI S HEMOGLOBIN [PRESENCE] IN URINE BY TEST STRIP NEGATIVE 09/09 Specimen Type: URINE No comment entered. Ordering Provider: DEVANTE VELASQUEZ Report Released Date/Time: Sep 10, 2023 12:28 PM Reporting Lab: [facility] [address] Performing Lab: [facility] [address] [facility] URINALYSI S NITRITE [PRESENCE] IN URINE BY TEST STRIP NEGATIVE 09/09 Specimen Type: URINE No comment entered. Ordering Provider: DEVANTE VELASQUEZ Report Released Date/Time: Sep 10, 2023 12:28 PM Reporting Lab: [facility] [address] Performing Lab: [facility] [address] [facility] URINALYSI S LEUKOCYTE ESTERASE [PRESENCE] IN URINE BY TEST STRIP NEGATIVE 09/09 Specimen Type: URINE No comment entered. Ordering Provider: DEVANTE VELASQUEZ Report Released Date/Time: Sep 10, 2023 12:28 PM Reporting Lab: [facility] [address] Performing Lab: [facility] [address] [facility] ALBUMIN/C REATININE RATIO URINE CREATININE [MASS/VOLU ME] IN URINE 27.8 mg/dL 58.0 - 161.0 09/09 L Specimen Type: URINE No comment entered. Ordering Provider: DEVANTE VELASQUEZ Report Released Date/Time: Sep 02, 2023 08:14 AM Reporting Lab: [facility] [address] Performing Lab: [facility] [address] [facility] ALBUMIN/C REATININE RATIO URINE MICROALBUM IN/CREATIN INE [MASS RATIO] IN URINE 441.4 mg/g{cre at} <29.9 - 29.9 09/09 H Specimen Type: URINE No comment entered. Ordering Provider: DEVANTE VELASQUEZ Report Released Date/Time: Sep 02, 2023 08:14 AM Reporting Lab: [facility] [address] Performing Lab: [facility] [address] [facility] ALBUMIN/C REATININE RATIO URINE MICROALBUM IN [MASS/VOLU ME] IN URINE 122.7 mg/L <29.9 - 29.9 09/09 H Specimen Type: URINE No comment entered. Ordering Provider: DEVANTE VELASQUEZ Report Released Date/Time: Sep 02, 2023 08:14 AM Reporting Lab: [facility] [address] Performing Lab: [facility] [address] [facility] HEMOGLOBI N A1C HEMOGLOBIN A1C/HEMOGL OBIN.TOTAL IN BLOOD 6.7 4.0 - 6.0 09/09 H Specimen Type: BLOOD Comment: Values obtained from A1C measurement s can vary. For typical A1C assays, a reported value of 7.0 could actually be between 6.7 and 7.3 if measured by a reference method. A reported value of 9.0 could actually be between 8.7 and 9.3. Ref: http://www. ngsp.org/CA Pdata.asp Ordering Provider: DEVANTE VELASQUEZ Report Released Date/Time: Sep 02, 2023 08:14 AM Reporting Lab: [facility] [address] Performing Lab: [facility] [address] [facility] CBC LEUKOCYTES [#/VOLUME] IN BLOOD BY AUTOMATED COUNT 9.18 10*3/uL 4.0 - 11.0 09/09 Specimen Type: BLOOD No comment entered. Ordering Provider: DEVANTE VELASQUEZ Report Released Date/Time: Sep 02, 2023 08:14 AM Reporting Lab: [facility] [address] Performing Lab: [facility] [address] [facility] CBC ERYTHROCYT ES [#/VOLUME] IN BLOOD BY AUTOMATED COUNT 4.28 10*6/uL 4.6 - 6.2 09/09 L Specimen Type: BLOOD No comment entered. Ordering Provider: DEVANTE VELASQUEZ Report Released Date/Time: Sep 02, 2023 08:14 AM Reporting Lab: [facility] [address] Performing Lab: [facility] [address] [facility] CBC HEMOGLOBIN [MASS/VOLU ME] IN BLOOD 12.9 g/dL 13.5 - 17.9 09/09 L Specimen Type: BLOOD No comment entered. Ordering Provider: DEVANTE VELASQUEZ Report Released Date/Time: Sep 02, 2023 08:14 AM Reporting Lab: [facility] [address] Performing Lab: [facility] [address] [facility] CBC HEMATOCRIT [VOLUME FRACTION] OF BLOOD BY AUTOMATED COUNT 38.4 41 - 54 09/09 L Specimen Type: BLOOD No comment entered. Ordering Provider: DEVANTE VELASQUEZ Report Released Date/Time: Sep 02, 2023 08:14 AM Reporting Lab: [facility] [address] Performing Lab: [facility] [address] [facility] CBC MCV [ENTITIC VOLUME] BY AUTOMATED COUNT 89.7 fL 80 - 100 09/09 Specimen Type: BLOOD No comment entered. Ordering Provider: DEVANTE VELASQUEZ Report Released Date/Time: Sep 02, 2023 08:14 AM Reporting Lab: [facility] [address] Performing Lab: [facility] [address] [facility] CBC MCH [ENTITIC MASS] BY AUTOMATED COUNT 30.1 pg 27 - 33 09/09 Specimen Type: BLOOD No comment entered. Ordering Provider: DEVANTE VELASQUEZ Report Released Date/Time: Sep 02, 2023 08:14 AM Reporting Lab: [facility] [address] Performing Lab: [facility] [address] [facility] CBC MCHC [MASS/VOLU ME] BY AUTOMATED COUNT 33.6 g/dL 32.0 - 37.5 09/09 Specimen Type: BLOOD No comment entered. Ordering Provider: DEVANTE VELASQUEZ Report Released Date/Time: Sep 02, 2023 08:14 AM Reporting Lab: [facility] [address] Performing Lab: [facility] [address] [facility] CBC PLATELETS [#/VOLUME] IN BLOOD BY AUTOMATED COUNT 261 10*3/uL 150 - 400 09/09 Specimen Type: BLOOD No comment entered. Ordering Provider: DEVANTE VELASQUEZ Report Released Date/Time: Sep 02, 2023 08:14 AM Reporting Lab: [facility] [address] Performing Lab: [facility] [address] [facility] CBC PLATELET MEAN VOLUME [ENTITIC VOLUME] IN BLOOD BY AUTOMATED COUNT 11.0 fL 7.4 - 10.4 09/09 H Specimen Type: BLOOD No comment entered. Ordering Provider: DEVANTE VELASQUEZ Report Released Date/Time: Sep 02, 2023 08:14 AM Reporting Lab: [facility] [address] Performing Lab: [facility] [address] [facility] CBC ERYTHROCYT E DISTRIBUTI ON WIDTH [RATIO] BY AUTOMATED COUNT 13.3 11.5 - 14.5 09/09 Specimen Type: BLOOD No comment entered. Ordering Provider: DEVANTE VELASQUEZ Report Released Date/Time: Sep 02, 2023 08:14 AM Reporting Lab: [facility] [address] Performing Lab: [facility] [address] [facility] COMPREHEN SIVE METABOLIC PANEL+MG CREATININE [MASS/VOLU ME] IN SERUM OR PLASMA 0.8 mg/dL 0.7 - 1.2 09/09 Specimen Type: PLASMA No comment entered. Ordering Provider: DEVANTE VELASQUEZ Report Released Date/Time: Sep 02, 2023 08:14 AM Reporting Lab: [facility] [address] Performing Lab: [facility] [address] [facility] COMPREHEN SIVE METABOLIC PANEL+MG UREA NITROGEN [MASS/VOLU ME] IN SERUM OR PLASMA 11 mg/dL 8 - 26 09/09 Specimen Type: PLASMA No comment entered. Ordering Provider: DEVANTE VELASQUEZ Report Released Date/Time: Sep 02, 2023 08:14 AM Reporting Lab: [facility] [address] Performing Lab: [facility] [address] [facility] COMPREHEN SIVE METABOLIC PANEL+MG GLUCOSE [MASS/VOLU ME] IN SERUM OR PLASMA 113 mg/dL 70 - 100 09/09 H Specimen Type: PLASMA No comment entered. Ordering Provider: DEVANTE VELASQUEZ Report Released Date/Time: Sep 02, 2023 08:14 AM Reporting Lab: [facility] [address] Performing Lab: [facility] [address] [facility] COMPREHEN SIVE METABOLIC PANEL+MG SODIUM [MOLES/VOL UME] IN SERUM OR PLASMA 135 mmol/L 136 - 145 09/09 L Specimen Type: PLASMA No comment entered. Ordering Provider: DEVANTE VELASQUEZ Report Released Date/Time: Sep 02, 2023 08:14 AM Reporting Lab: [facility] [address] Performing Lab: [facility] [address] [facility] COMPREHEN SIVE METABOLIC PANEL+MG POTASSIUM [MOLES/VOL UME] IN SERUM OR PLASMA 4.7 mmol/L 3.5 - 5.1 09/09 Specimen Type: PLASMA No comment entered. Ordering Provider: DEVANTE VELASQUEZ Report Released Date/Time: Sep 02, 2023 08:14 AM Reporting Lab: [facility] [address] Performing Lab: [facility] [address] [facility] COMPREHEN SIVE METABOLIC PANEL+MG CHLORIDE [MOLES/VOL UME] IN SERUM OR PLASMA 102 mmol/L 98 - 107 09/09 Specimen Type: PLASMA No comment entered. Ordering Provider: DEVANTE VELASQUEZ Report Released Date/Time: Sep 02, 2023 08:14 AM Reporting Lab: [facility] [address] Performing Lab: [facility] [id number] [facility] COMPREHEN SIVE METABOLIC PANEL+MG CARBON DIOXIDE, TOTAL [MOLES/VOL UME] IN SERUM OR PLASMA 23 mmol/L 22 - 29 09/09 Specimen Type: PLASMA No comment entered. Ordering Provider: DEVANTE VELASQUEZ Report Released Date/Time: Sep 02, 2023 08:14 AM Reporting Lab: [facility] [phone] Performing Lab: [facility] [phone] [facility] COMPREHEN SIVE METABOLIC PANEL+MG CALCIUM [MASS/VOLU ME] IN SERUM OR PLASMA 9.4 mg/dL 8.4 - 10.2 09/09 Specimen Type: PLASMA No comment entered. Ordering Provider: DEVANTE VELASQUEZ Report Released Date/Time: Sep 02, 2023 08:14 AM Reporting Lab: [facility] [id number] Performing Lab: [facility] [phone] [facility] COMPREHEN SIVE METABOLIC PANEL+MG PROTEIN [MASS/VOLU ME] IN SERUM OR PLASMA 8.0 g/dL 6.0 - 8.3 09/09 Specimen Type: PLASMA No comment entered. Ordering Provider: DEVANTE VELASQUEZ N Report Released Date/Time: Sep 02, 2023 08:14 AM Reporting Lab: [facility] [phone] Performing Lab: [facility] [phone] [facility] COMPREHEN SIVE METABOLIC PANEL+MG ALBUMIN [MASS/VOLU ME] IN SERUM OR PLASMA 4.3 g/dL 3.5 - 5.2 09/09 Specimen Type: PLASMA No comment entered. Ordering Provider: DEVANTE VELASQUEZ N Report Released Date/Time: Sep 02, 2023 08:14 AM Reporting Lab: [facility] [phone] Performing Lab: [facility] [id number] [facility] COMPREHEN SIVE METABOLIC PANEL+MG BILIRUBIN. TOTAL [MASS/VOLU ME] IN SERUM OR PLASMA 0.5 mg/dL 0.2 - 1.2 09/09 Specimen Type: PLASMA No comment entered. Ordering Provider: DEVANTE VELASQUEZ N Report Released Date/Time: Sep 02, 2023 08:14 AM Reporting Lab: [facility] [address] Performing Lab: [facility] [address] [facility] COMPREHEN SIVE METABOLIC PANEL+MG MAGNESIUM [MASS/VOLU ME] IN SERUM OR PLASMA 1.8 mg/dL 1.6 - 2.6 09/09 Specimen Type: PLASMA No comment entered. Ordering Provider: DEVANTE VELASQUEZ N Report Released Date/Time: Sep 02, 2023 08:14 AM Reporting Lab: [facility] [address] Performing Lab: [facility] [address] [facility] COMPREHEN SIVE METABOLIC PANEL+MG ANION GAP IN SERUM OR PLASMA 10 mmol/L 5 - 09/09 Specimen Type: PLASMA No comment entered. Ordering Provider: DEVANTE VELASQUEZ N Report Released Date/Time: Sep 02, 2023 08:14 AM Reporting Lab: [facility] [address] Performing Lab: [facility] [address] [facility] COMPREHEN SIVE METABOLIC PANEL+MG ALKALINE PHOSPHATAS E [ENZYMATIC ACTIVITY/V OLUME] IN SERUM OR PLASMA 83 U/L 40 - 150 09/09 Specimen Type: PLASMA No comment entered. Ordering Provider: DEVANTE VELASQUEZ Report Released Date/Time: Sep 02, 2023 08:14 AM Reporting Lab: [facility] [address] Performing Lab: [facility] [address] [facility] COMPREHEN SIVE METABOLIC PANEL+MG ALANINE AMINOTRANS FERASE [ENZYMATIC ACTIVITY/V OLUME] IN SERUM OR PLASMA 19 U/L <55 - 55 09/09 Specimen Type: PLASMA No comment entered. Ordering Provider: DEVANTE VELASQUEZ Report Released Date/Time: Sep 02, 2023 08:14 AM Reporting Lab: [facility] [address] Performing Lab: [facility] [address] [facility] COMPREHEN SIVE METABOLIC PANEL+MG ASPARTATE AMINOTRANS FERASE [ENZYMATIC ACTIVITY/V OLUME] IN SERUM OR PLASMA 18 U/L <34 - 34 09/09 Specimen Type: PLASMA No comment entered. Ordering Provider: DEVANTE VELASQUEZ Report Released Date/Time: Sep 02, 2023 08:14 AM Reporting Lab: [facility] [address] Performing Lab: [facility] [address] [facility] COMPREHEN SIVE METABOLIC PANEL+MG GLOMERULAR FILTRATION RATE/1.73 SQ M.PREDICTE D [VOLUME RATE/AREA] IN SERUM, PLASMA OR BLOOD BY CREATININE -BASED FORMULA (CKD-EPI 2020) >90 60 09/09 Specimen Type: PLASMA No comment entered. Ordering Provider: DEVANTE VELASQUEZ Report Released Date/Time: Sep 02, 2023 08:14 AM Reporting Lab: [facility] [address] Performing Lab: [facility] [address] [facility] LIPID PANEL,NON -FASTING CHOLESTERO L [MASS/VOLU ME] IN SERUM OR PLASMA 124 mg/dL <199 - 199 09/09 Specimen Type: PLASMA No comment entered. Ordering Provider: DEVANTE VELAQSUEZ Report Released Date/Time: Sep 10, 2023 12:28 PM Reporting Lab: [facility] [address] Performing Lab: [facility] [address] [facility] LIPID PANEL,NON -FASTING CHOLESTERO L IN HDL [MASS/VOLU ME] IN SERUM OR PLASMA 39 mg/dL 40 09/09 L Specimen Type: PLASMA No comment entered. Ordering Provider: DEVANTE VELASQUEZ Report Released Date/Time: Sep 10, 2023 12:28 PM Reporting Lab: [facility] [address] Performing Lab: [facility] [address] [facility] LIPID PANEL,NON -FASTING CHOLESTERO L IN LDL [MASS/VOLU ME] IN SERUM OR PLASMA BY CALCULATIO N 55 mg/dL <99 - 99 09/09 Specimen Type: PLASMA No comment entered. Ordering Provider: DEVANTE VELASQUEZ Report Released Date/Time: Sep 10, 2023 12:28 PM Reporting Lab: [facility] [address] Performing Lab: [facility] [address] [facility] LIPID PANEL,NON -FASTING CHOLESTERO L IN VLDL [MASS/VOLU ME] IN SERUM OR PLASMA BY CALCULATIO N 30 mg/dL <29 - 29 09/09 H Specimen Type: PLASMA No comment entered. Ordering Provider: DEVANTE VELASQUEZ N Report Released Date/Time: Sep 10, 2023 12:28 PM Reporting Lab: [facility] [address] Performing Lab: [facility] [address] [facility] LIPID PANEL,NON -FASTING CHOLESTERO L NON HDL [MASS/VOLU ME] IN SERUM OR PLASMA 85 mg/dL <129 - 129 09/09 Specimen Type: PLASMA No comment entered. Ordering Provider: DEVANTE VELASQUEZ N Report Released Date/Time: Sep 10, 2023 12:28 PM Reporting Lab: [facility] [address] Performing Lab: [facility] [address] [facility] LIPID PANEL,NON -FASTING TRIGLYCERI DE [MASS/VOLU ME] IN SERUM OR PLASMA 152 mg/dL <149 - 149 09/09 H Specimen Type: PLASMA No comment entered. Ordering Provider: DEVANTE VELASQUEZ Report Released Date/Time: Sep 10, 2023 12:28 PM Reporting Lab: [facility] [address] Performing Lab: [facility] [address] [facility] PSA PROSTATE SPECIFIC AG [MASS/VOLU ME] IN SERUM OR PLASMA 0.81 ng/mL <4.00 - 4.00 03/11 Specimen Type: SERUM No comment entered. Ordering Provider: DEVANTE VELASQUEZ Report Released Date/Time: Jan 10, 2023 09:17 AM Reporting Lab: [facility] [address] Performing Lab: [facility] [address] [facility] CBC LEUKOCYTES [#/VOLUME] IN BLOOD BY AUTOMATED COUNT 10.21 10*3/uL 4.0 - 11.0 03/11 Specimen Type: BLOOD No comment entered. Ordering Provider: DEVANTE VELASQUEZ Report Released Date/Time: Mar 11, 2023 01:43 PM Reporting Lab: [facility] [address] Performing Lab: [facility] [address] [facility] CBC ERYTHROCYT ES [#/VOLUME] IN BLOOD BY AUTOMATED COUNT 3.91 10*6/uL 4.6 - 6.2 03/11 L Specimen Type: BLOOD No comment entered. Ordering Provider: DEVANTE VELASQUEZ Report Released Date/Time: Mar 11, 2023 01:43 PM Reporting Lab: [facility] [address] Performing Lab: [facility] [address] [facility] CBC HEMOGLOBIN [MASS/VOLU ME] IN BLOOD 11.3 g/dL 13.5 - 17.9 03/11 L Specimen Type: BLOOD No comment entered. Ordering Provider: DEVANTE VELASQUEZ Report Released Date/Time: Mar 11, 2023 01:43 PM Reporting Lab: [facility] [address] Performing Lab: [facility] [address] [facility] CBC HEMATOCRIT [VOLUME FRACTION] OF BLOOD BY AUTOMATED COUNT 34.5 41 - 54 03/11 L Specimen Type: BLOOD No comment entered. Ordering Provider: DEVANTE VELASQUEZ Report Released Date/Time: Mar 11, 2023 01:43 PM Reporting Lab: [facility] [address] Performing Lab: [facility] [address] [facility] CBC MCV [ENTITIC VOLUME] BY AUTOMATED COUNT 88.2 fL 80 - 100 03/11 Specimen Type: BLOOD No comment entered. Ordering Provider: DEVANTE VELASQUEZ Report Released Date/Time: Mar 11, 2023 01:43 PM Reporting Lab: [facility] [address] Performing Lab: [facility] [address] [facility] CBC MCH [ENTITIC MASS] BY AUTOMATED COUNT 28.9 pg 27 - 33 03/11 Specimen Type: BLOOD No comment entered. Ordering Provider: DEVANTE VELASQUEZ Report Released Date/Time: Mar 11, 2023 01:43 PM Reporting Lab: [facility] [address] Performing Lab: [facility] [address] [facility] CBC MCHC [MASS/VOLU ME] BY AUTOMATED COUNT 32.8 g/dL 32.0 - 37.5 03/11 Specimen Type: BLOOD No comment entered. Ordering Provider: DEVANTE VELASQUEZ Report Released Date/Time: Mar 11, 2023 01:43 PM Reporting Lab: [facility] [address] Performing Lab: [facility] [address] [facility] CBC PLATELETS [#/VOLUME] IN BLOOD BY AUTOMATED COUNT 249 10*3/uL 150 - 400 03/11 Specimen Type: BLOOD No comment entered. Ordering Provider: DEVANTE VELASQUEZ Report Released Date/Time: Mar 11, 2023 01:43 PM Reporting Lab: [facility] [address] Performing Lab: [facility] [address] [facility] CBC PLATELET MEAN VOLUME [ENTITIC VOLUME] IN BLOOD BY AUTOMATED COUNT 11.4 fL 7.4 - 10.4 03/11 H Specimen Type: BLOOD No comment entered. Ordering Provider: DEVANTE VELASQUEZ Report Released Date/Time: Mar 11, 2023 01:43 PM Reporting Lab: [facility] [address] Performing Lab: [facility] [address] [facility] CBC ERYTHROCYT E DISTRIBUTI ON WIDTH [RATIO] BY AUTOMATED COUNT 13.8 11.5 - 14.5 03/11 Specimen Type: BLOOD No comment entered. Ordering Provider: DEVANTE VELASQUEZ Report Released Date/Time: Mar 11, 2023 01:43 PM Reporting Lab: [facility] [address] Performing Lab: [facility] [address] [facility] CBC PLATELETS RETICULATE D/100 PLATELETS IN BLOOD BY AUTOMATED COUNT 6.5 0 - 10 03/11 Specimen Type: BLOOD No comment entered. Ordering Provider: DEVANTE VELASQUEZ Report Released Date/Time: Mar 11, 2023 01:43 PM Reporting Lab: [facility] [address] Performing Lab: [facility] [address] [facility] COMPREHEN SIVE METABOLIC PANEL+MG CREATININE [MASS/VOLU ME] IN SERUM OR PLASMA 0.8 mg/dL 0.7 - 1.2 03/11 Specimen Type: PLASMA No comment entered. Ordering Provider: DEVANTE VELASQUEZ Report Released Date/Time: Mar 11, 2023 01:03 PM Reporting Lab: [facility] [address] Performing Lab: [facility] [address] [facility] COMPREHEN SIVE METABOLIC PANEL+MG UREA NITROGEN [MASS/VOLU ME] IN SERUM OR PLASMA 9 mg/dL 8 - 26 03/11 Specimen Type: PLASMA No comment entered. Ordering Provider: DEVANTE VELASQUEZ Report Released Date/Time: Mar 11, 2023 01:03 PM Reporting Lab: [facility] [address] Performing Lab: [facility] [address] [facility] COMPREHEN SIVE METABOLIC PANEL+MG GLUCOSE [MASS/VOLU ME] IN SERUM OR PLASMA 67 mg/dL 70 - 100 03/11 L Specimen Type: PLASMA No comment entered. Ordering Provider: DEVANTE VELASQUEZ Report Released Date/Time: Mar 11, 2023 01:03 PM Reporting Lab: [facility] [address] Performing Lab: [facility] [address] [facility] COMPREHEN SIVE METABOLIC PANEL+MG SODIUM [MOLES/VOL UME] IN SERUM OR PLASMA 137 mmol/L 136 - 145 03/11 Specimen Type: PLASMA No comment entered. Ordering Provider: DEVANTE VELASQUEZ Report Released Date/Time: Mar 11, 2023 01:03 PM Reporting Lab: [facility] [address] Performing Lab: [facility] [address] [facility] COMPREHEN SIVE METABOLIC PANEL+MG POTASSIUM [MOLES/VOL UME] IN SERUM OR PLASMA 4.4 mmol/L 3.5 - 5.1 03/11 Specimen Type: PLASMA No comment entered. Ordering Provider: DEVANTE VELASQUEZ Report Released Date/Time: Mar 11, 2023 01:03 PM Reporting Lab: [facility] [address] Performing Lab: [facility] [address] [facility] COMPREHEN SIVE METABOLIC PANEL+MG CHLORIDE [MOLES/VOL UME] IN SERUM OR PLASMA 105 mmol/L 98 - 107 03/11 Specimen Type: PLASMA No comment entered. Ordering Provider: NSUBUGA,CHR ISTINE N Report Released Date/Time: Mar 11, 2023 01:03 PM Reporting Lab: [facility] [address] Performing Lab: [facility] [address] [facility] COMPREHEN SIVE METABOLIC PANEL+MG CARBON DIOXIDE, TOTAL [MOLES/VOL UME] IN SERUM OR PLASMA 24 mmol/L 22 - 29 03/11 Specimen Type: PLASMA No comment entered. Ordering Provider: DEVANTE VELASQUEZ Report Released Date/Time: Mar 11, 2023 01:03 PM Reporting Lab: [facility] [address] Performing Lab: [facility] [address] [facility] COMPREHEN SIVE METABOLIC PANEL+MG CALCIUM [MASS/VOLU ME] IN SERUM OR PLASMA 9.0 mg/dL 8.4 - 10.2 03/11 Specimen Type: PLASMA No comment entered. Ordering Provider: DEVANTE VELASQUEZ Report Released Date/Time: Mar 11, 2023 01:03 PM Reporting Lab: [facility] [address] Performing Lab: [facility] [address] [facility] COMPREHEN SIVE METABOLIC PANEL+MG PROTEIN [MASS/VOLU ME] IN SERUM OR PLASMA 7.4 g/dL 6.0 - 8.3 03/11 Specimen Type: PLASMA No comment entered. Ordering Provider: DEVANTE VELASQUEZ Report Released Date/Time: Mar 11, 2023 01:03 PM Reporting Lab: [facility] [address] Performing Lab: [facility] [address] [facility] COMPREHEN SIVE METABOLIC PANEL+MG ALBUMIN [MASS/VOLU ME] IN SERUM OR PLASMA 4.1 g/dL 3.5 - 5.2 03/11 Specimen Type: PLASMA No comment entered. Ordering Provider: DEVANTE VELASQUEZ Report Released Date/Time: Mar 11, 2023 01:03 PM Reporting Lab: [facility] [address] Performing Lab: [facility] [address] [facility] COMPREHEN SIVE METABOLIC PANEL+MG BILIRUBIN. TOTAL [MASS/VOLU ME] IN SERUM OR PLASMA 0.5 mg/dL 0.2 - 1.2 03/11 Specimen Type: PLASMA No comment entered. Ordering Provider: DEVANTE VELASQUEZ Report Released Date/Time: Mar 11, 2023 01:03 PM Reporting Lab: [facility] [address] Performing Lab: [facility] [address] [facility] COMPREHEN SIVE METABOLIC PANEL+MG MAGNESIUM [MASS/VOLU ME] IN SERUM OR PLASMA 1.7 mg/dL 1.6 - 2.6 03/11 Specimen Type: PLASMA No comment entered. Ordering Provider: DEVANTE VELASQUEZ Report Released Date/Time: Mar 11, 2023 01:03 PM Reporting Lab: [facility] [address] Performing Lab: [facility] [address] [facility] COMPREHEN SIVE METABOLIC PANEL+MG ANION GAP IN SERUM OR PLASMA 8 mmol/L 5 - 15 03/11 Specimen Type: PLASMA No comment entered. Ordering Provider: DEVANTE VELASQUEZ Report Released Date/Time: Mar 11, 2023 01:03 PM Reporting Lab: [facility] [address] Performing Lab: [facility] [address] [facility] COMPREHEN SIVE METABOLIC PANEL+MG ALKALINE PHOSPHATAS E [ENZYMATIC ACTIVITY/V OLUME] IN SERUM OR PLASMA 71 U/L 40 - 150 03/11 Specimen Type: PLASMA No comment entered. Ordering Provider: DEVANTE VELASQUEZ Report Released Date/Time: Mar 11, 2023 01:03 PM Reporting Lab: [facility] [address] Performing Lab: [facility] [address] [facility] COMPREHEN SIVE METABOLIC PANEL+MG ALANINE AMINOTRANS FERASE [ENZYMATIC ACTIVITY/V OLUME] IN SERUM OR PLASMA 12 U/L <55 - 55 03/11 Specimen Type: PLASMA No comment entered. Ordering Provider: DEVANTE VELASQUEZ Report Released Date/Time: Mar 11, 2023 01:03 PM Reporting Lab: [facility] [address] Performing Lab: [facility] [address] [facility] COMPREHEN SIVE METABOLIC PANEL+MG ASPARTATE AMINOTRANS FERASE [ENZYMATIC ACTIVITY/V OLUME] IN SERUM OR PLASMA 13 U/L <34 - 34 03/11 Specimen Type: PLASMA No comment entered. Ordering Provider: DEVANTE VELASQUEZ Report Released Date/Time: Mar 11, 2023 01:03 PM Reporting Lab: [facility] [address] Performing Lab: [facility] [address] [facility] COMPREHEN SIVE METABOLIC PANEL+MG GLOMERULAR FILTRATION RATE/1.73 SQ M.PREDICTE D [VOLUME RATE/AREA] IN SERUM, PLASMA OR BLOOD BY CREATININE -BASED FORMULA (CKD-EPI 2020) >90 60 03/11 Specimen Type: PLASMA No comment entered. Ordering Provider: DEVANTE VELASQUEZ Report Released Date/Time: Mar 11, 2023 01:03 PM Reporting Lab: [facility] [address] Performing Lab: [facility] [address] [facility] Vital Signs Combined list of inpatient and outpatient Vital Signs from Department of Defense and Veterans Affairs, ranging from 12 months to all on record, depending upon the facility. Vital Sign Value Date Comments Source Encounters Combined list of: 1) Encounters from Department of Veterans Affairs facilities going back up to thelast 18 months. 2) Encounters from the Department of Defense facilities going back up to 280 months. Location Location Details Encounter Type Encounter Number Reason For Visit Attending Provider ADM Date DC Date Status Disposition Source [place] [facility] Outpatient Encounter [id number] 05/24 [facility] [place] [facility] Outpatient Encounter [id number] 05/24 [place] [facility] [place] [facility] Outpatient Encounter [id number] 05/31 [place] [facility] [place] [facility] Outpatient Encounter [id number] 06/13 [place] [facility] [place] [facility] Outpatient Encounter [id number] 06/22 [place] [facility] Outpatient Encounter [id number] Diagnos is: ICD-10- CM M54.9 Dorsalg ia, unspeci fied
NSUBUGA, RISTINE N 06/25 [facility] [id number] Diagnos is: ICD-10- CM M54.16 Radicul opathy, lumbar region< br/> SA SHANNAN SABA 07/13 RUTH [facility]GUIN [place] [facility] Outpatient Encounter [id number] 07/24 [place] [facility] [place] [facility] Outpatient Encounter [id number] 08/31 [place] [facility] Outpatient Encounter [id number] Diagnos is: ICD-10- CM I10 Essenti al (primar y) hyperte nsion<b r/> NSUBUGA, RISTINE N 08/31 [facility] [place] [facility] Outpatient Encounter [id number] Lamin IQBAL 12/26 [place] [facility] [place] [facility] Outpatient Encounter [id number] 01/09 [place] [facility] [place] [facility] Outpatient Encounter [id number] YULY PALMA 01/12 [place] [facility] [place] [facility] Outpatient Encounter [id number] 01/15 [place] [facility] [place] [facility] Outpatient Encounter [id number] 01/15 [place] [facility] [place] [facility] Outpatient Encounter [id number] 01/16 [place] [facility] [place] [facility] Outpatient Encounter [id number] 01/17 [place] [facility] OFF/OP EST MAY X REQ PHY/QHP [id number] Diagnos is: ICD-10- CM E11.9 Type 2 diabete s mellitu s without complic ations< br/> Lamin IQBAL 01/24 [facility] [place] [facility] Outpatient Encounter [id number] 01/31 [place] [facility] [place] [facility] Outpatient Encounter [id number] 02/03 [place] [facility] [place] [facility] Outpatient Encounter [id number] 02/05 [place] [facility] [place] [facility] Outpatient Encounter [id number] 02/09 [place] [facility] HC PRO PHONE CALL 5-10 MIN [id number] Diagnos is: ICD-10- CM I10 Essenti al (primar y) hyperte nsion<b r/> Lamin IQBAL 02/11 [facility] [place] [facility] Outpatient Encounter [id number] 02/15 [place] [facility] HC PRO PHONE CALL 5-10 MIN [id number] Diagnos is: ICD-10- CM I10 Essenti al (primar y) hyperte nsion<b r/> Lamin IQBAL 02/19 [facility] OFFICE O/P EST MOD 30-39 MIN [id number] Diagnos is: ICD-10- CM I48.92 Unspeci fied atrial flutter
NSUBUGA,CH RISTINE N 03/11 [facility] [place] [facility] Outpatient Encounter [id number] 03/22 [place] [facility] [place] [facility] Outpatient Encounter [id number] 07/23 [place] [facility] [place] [facility] Outpatient Encounter [id number] 07/28 [place] [facility] [place] [facility] Outpatient Encounter [id number] 07/30 [place] [facility] [place] [facility] Outpatient Encounter [id number] 09/01 [place] [facility] Outpatient Encounter [id number] NSUBUGA, RISTINE N 09/01 [facility] [place] [facility] Outpatient Encounter [id number] NSUBUGA, RISTINE N 09/01 [place] [facility] [place] [facility] Outpatient Encounter [id number] 09/09 [place] [facility] OFFICE O/P EST HI 40 MIN [id number] Diagnos is: ICD-10- CM I10 Essenti al (primar y) hyperte nsion<b r/> NSUBUGA, RISTINE N 09/09 [facility] [place] [facility] Outpatient Encounter [id number] 09/10 [place] [facility] [place] [facility] Outpatient Encounter [id number] 09/18 [place] [facility] [place] [facility] Outpatient Encounter [id number] 09/29 [place] [facility] [place] [facility] Outpatient Encounter [id number] 10/08 [place] [facility] [place] [facility] Outpatient Encounter [id number] 10/18 [place] [facility] [place] [facility] Outpatient Encounter [id number] Ángel [place] 11/14 [facility] [facility] Social History Combined list of available smoking, tobacco, and other social history from Department of Defense and Veterans Affairs facilities. Social History Type Response Date Comment Sourc e Tobacco smoking status NHIS [facility]-TOBACCO USER SOME DAYS 09/10/2023 [facility] of [facility]/10/2023 [facility] of [facility] 08/31/2022 [facility] History of tobacco use IA-TOBACCO USER S OME DAYS 09/12/2021 [facility] History of tobacco use IA-TOBACCO USER S OME DAYS 09/12/2020 [facility] CO UNSEL NO 09/07/2019 [facility] History of tobacco use CURRENT TOBACCO USER 08/26/2017 [facility] History of tobacco use INPT NO TOBACCO U SE IN LAST 30 DAYS 08/11/2017 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 An actual copy of the Directive is not included. Date Advance Directive Provider Source 08/11/2017 [facility]
--- OUTSIDE RECORDS SUMMARY | 2023-11-15 16:18 | XMS_ITS | Encounter Summary ---
Author Name [facility] [place] [facility] [place] [facility] [place] Address [address] [place] [id number] Care Team Providers Care Talent Director Name Role Phone KARY VELASQUEZ Primary Care Provider Unavail able Insurance Providers: [...] PART A Apr 19, 2015 PART A [id number] [phone] TENNILLE MORRIS PATIENT Selected Encounter This section includes the information on record at [place] for the Encounter. Date/Time Encounter Type Encounter Description Reason Pro vider Source Sep 02, 2023 12:00 AM Outpatient Encounter EVENT (HISTORICAL) I[facility] Encounter Template Text not used by [place] Plan of Treatment: Future Appointments (+ 6 months) and Future Tests (+/- 45 days) The Plan of Treatment section includes future care activities for the patient from all [place] treatmentfacilities. This section includes future appointments and future orders which are active, pending or scheduled. Future Appointments This section includes appointments that were scheduled to occur 6 months from the date of the Encounter, up to a maximum of 20 appointments. The data comes from all [place] treatment facilities. Appointment Date/Time Appointment Type Appointme nt Facility Name Sep 10, 2023 12:00 PM AMBULATORY - MEDICINE [facility] October 09, 2023 09:00 AM AMBULATORY - NONE [facility] Lab Results: +/- 30 days of the encounter This section includes the Chemistry and Hematology Lab Results on record with [place] for the patient. Radiology Reports and Pathology Reports are provided separately, in subsequent sections. Lab Results This section contains the Chemistry/Hematology Results that were resulted 30 days before or 30 daysafter the date of the Encounter. Date/Time Source Result Type Result - Unit Interpretation Reference Range Comment September 26, 2023 12:24 PM [facility] OCCULT BLOOD FIT X1 SCREEN Specimen Type: FECES No comment entered. Ordering Provider: BONNIE VELASQUEZ Report Released Date/Time: Sep 02, 2023 08:14 AM Reporting Lab: [facility] [id number] Performing Lab: [facility] [id number] OCCULT BLOOD (FIT) #1 OF 1 Negative Negative Sep 10, 2023 01:05 PM [facility] URINALYSIS Specimen Type: URINE No comment entered. Ordering Provider: BONNIE VELASQUEZ Report Released Date/Time: Sep 10, 2023 12:28 PM Reporting Lab: [facility] [id number] Performing Lab: [facility] [phone] URINE COLOR COLORLESS SPECIFIC GRAVITY 1.005 1.003-1.035 URINE BILIRUBIN NEGATIVE NEGATIVE URINE KETONES NEGATIVE NEGATIVE URINE GLUCOSE NEGATIVE mg/dL See_Comment URINE PROTEIN 10 mg/dL See_Comment URINE PH 6.0 5.0-8.0 URINE WBC/HPF NONE SEEN /[HPF] 0-7 URINE BACTERIA NONE SEEN URINE RBC/HPF NONE SEEN /[HPF] 0-3 APPEARANCE CLEAR SQUAMOUS EPITHELIAL NONE SEEN /[HPF] URINE BLOOD NEGATIVE NEGATIVE URINE NITRITE NEGATIVE NEGATIVE LEUKOCYTE ESTERASE NEGATIVE NEGATIVE Sep 10, 2023 01:04 PM [facility] ALBUMIN/CREATININE RATIO URINE Specimen Type: URINE No comment entered. Ordering Provider: BONNIE VELASQUEZ Report Released Date/Time: Sep 02, 2023 08:14 AM Reporting Lab: [facility] [phone] Performing Lab: [facility] [phone] CREATININE,UR RANDOM 27.8 mg/dL L 58.0-161.0 ALB/CREAT RATIO,UR 441.4 mg/g{creat} H <29.9 ALBUMIN,UR 122.7 mg/L H <29.9 Sep 10, 2023 12:42 PM [facility] HEMOGLOBIN A1C Specimen Type: BLOOD Comment: Values obtained from A1C measurements can vary. For typical A1C assays, a reported value of 7.0 could actually be between 6.7 and 7.3 if measured by a reference method. A reported value of 9.0 could actually be between 8.7 and 9.3. Ref: http://www.ngs p.org/CAPdata. asp Ordering Provider: BONNIE VELASQUEZ Report Released Date/Time: Sep 02, 2023 08:14 AM Reporting Lab: [facility] [id number] Performing Lab: [facility] [phone] HEMOGLOBIN A1C 6.7 H 4.0-6.0 Sep 10, 2023 12:42 PM [facility] CBC Specimen Type: BLOOD No comment entered. Ordering Provider: BONNIE VELASQUEZ Report Released Date/Time: Sep 02, 2023 08:14 AM Reporting Lab: [facility] [id number] Performing Lab: [facility] [phone] WBC 9.18 10*3/uL 4.0-11.0 RBC 4.28 10*6/uL L 4.6-6.2 HGB 12.9 g/dL L 13.5-17.9 HCT 38.4 L 41-54 MCV 89.7 fL 80-100 MCH 30.1 pg 27-33 MCHC 33.6 g/dL 32.0-37.5 PLT 261 10*3/uL 150-400 MPV 11.0 fL H 7.4-10.4 RDW 13.3 11.5-14.5 Sep 10, 2023 12:42 PM [facility] COMPREHENSIVE METABOLIC PANEL+MG Specimen Type: PLASMA No comment entered. Ordering Provider: BONNIE VELASQUEZ Report Released Date/Time: Sep 02, 2023 08:14 AM Reporting Lab: [facility] [phone] Performing Lab: [facility] [phone] CREATININE 0.8 mg/dL 0.7-1.2 UREA NITROGEN 11 mg/dL 8-26 GLUCOSE 113 mg/dL H 70-100 SODIUM 135 mmol/L L 136-145 POTASSIUM 4.7 mmol/L 3.5-5.1 CHLORIDE 102 mmol/L 98-107 CO2 23 mmol/L 22-29 CALCIUM 9.4 mg/dL 8.4-10.2 PROTEIN,TOTAL 8.0 g/dL 6.0-8.3 ALBUMIN 4.3 g/dL 3.5-5.2 BILIRUBIN, TOTAL 0.5 mg/dL 0.2-1.2 MAGNESIUM 1.8 mg/dL 1.6-2.6 ANION GAP 10 mmol/L 5-15 ALKALINE PHOSPHATASE 83 U/L 40-150 ALT/SGPT 19 U/L <55 AST/SGOT 18 U/L <34 .CREAT EGFR(CKD-EPI) >90 >60 Sep 10, 2023 12:42 PM [facility] LIPID PANEL,NON-FASTING Specimen Type: PLASMA No comment entered. Ordering Provider: BONNIE VELASQUEZ Report Released Date/Time: Sep 10, 2023 12:28 PM Reporting Lab: [facility] [phone] Performing Lab: [facility] [phone] CHOLESTEROL 124 mg/dL <199 .HDL 39 mg/dL L >40 LDL CALCULATION 55 mg/dL <99 VLDL CALCULATION 30 mg/dL H <29 NON HDL CHOLESTEROL 85 mg/dL <129 TRIG(NON FASTING) 152 mg/dL H <149 Social History: Smoking Status (Most current) and Tobacco Use (All prior to encounter date) This section includes the most current, and the historical, smoking and tobacco- related health factors from the [place] facility where the Encounter took place. Current Smoking Status This section includes the most current smoking, or tobacco-related health factor, from the [place] facility where the Encounter took place. Date/Time Current Smoking Status Comment Jayy lyman Aug 11, 2017 01:01 PM INPT NO TOBACCO USE IN LAST 30 D AYS [facility] Advance Directives: All historical and current Section Date Range: From patient's date of to the date document was created. This section includes ALL of a patient's completed or amended [place] Advance and Rescinded Directives. The entries below indicate that a directive exists for the patient, but an actual copy is not included with this document. The data comes from all [place] facilities. Date Advance Directives Provider Source Aug 11, 2017 CLINICAL WARNING [facility]
--- OUTSIDE RECORDS SUMMARY | 2023-11-15 16:18 | XMS_ITS | Encounter Summary ---
Author Name [facility] [place] [facility] [place] Address [address] [place] [address] Care Team Providers Care Debt Collection Specialist Name Role Phone KARY VELASQUEZ Primary Care [...] PART A Apr 19, 2015 PART A [id number] [phone] TENNILLE MORRIS PATIENT Selected Encounter This section includes the information on record at [place] for the Encounter. Date/Time Encounter Type Encounter Description Reason Provider Source Mar 11, 2023 01:30 PM OFFICE O/P EST MOD 30-39 MIN PRIMARY CARE/MEDICINE ICD-10-CM I48.92 Unspecified atrial flutter BONNIE VELASQUEZ Encounter Template Text not used by [place] Assessments - Encounter Diagnoses This section includes the primary and secondary diagnoses documented for the Encounter. Date/Time Primary/Secondary Diagnosis Diagnosis Name Provider Source Mar 11, 2023 04:44 PM PRIMARY Unspecified atrial flutter [facility] Mar 11, 2023 04:44 PM SECONDARY Cardiomegaly BONNIE VELASQUEZ Mar 11, 2023 04:44 PM SECONDARY Dorsalgia, unspecified [facility] Mar 11, 2023 04:44 PM SECONDARY Encounter for immunization BONNIE VELASQUEZ [facility] Mar 11, 2023 04:44 PM SECONDARY Essential (primary) hypertension BONNIE VELASQUEZ [facility] Mar 11, 2023 04:44 PM SECONDARY intermediate (current) use of anticoagulants BONNIE VELASQUEZ [facility] Mar 11, 2023 04:44 PM SECONDARY Type 2 diabetes mellitus without complications BONNIE VELASQUEZ [facility] Plan of Treatment: Future Appointments (+ 6 months) and Future Tests (+/- 45 days) The Plan of Treatment section includes future care activities for the patient from all [place] treatmentfacilities. This section includes future appointments and future orders which are active, pending or scheduled. Future Appointments This section includes appointments that were scheduled to occur 6 months from the date of the Encounter, up to a maximum of 20 appointments. The data comes from all [place] treatment facilities. Appointment Date/Time Appointment Type Appointme nt Facility Name Sep 02, 2023 10:00 AM AMBULATORY - MEDICINE [facility] Sep 10, 2023 12:00 PM AMBULATORY - MEDICINE [facility] Lab Results: +/- 30 days of the encounter This section includes the Chemistry and Hematology Lab Results on record with [place] for the patient. Radiology Reports and Pathology Reports are provided separately, in subsequent sections. Lab Results This section contains the Chemistry/Hematology Results that were resulted 30 days before or 30 daysafter the date of the Encounter. Date/Time Source Result Type Result - Unit Interpretation Reference Range Comment Mar 11, 2023 02:25 PM [facility] PSA Specimen Type: SERUM No comment entered. Ordering Provider: ROZ VELASQUEZ Report Released Date/Time: Jan 10, 2023 09:17 AM Reporting Lab: [facility] [id number] Performing Lab: [facility] [phone] PSA 0.81 ng/mL <4.00 Mar 11, 2023 02:25 PM [facility] CBC Specimen Type: BLOOD No comment entered. Ordering Provider: ROZ VELASQUEZ Report Released Date/Time: Mar 11, 2023 01:43 PM Reporting Lab: [facility] [phone] Performing Lab: [facility] [id number] WBC 10.21 10*3/uL 4.0-11.0 RBC 3.91 10*6/uL L 4.6-6.2 HGB 11.3 g/dL L 13.5-17.9 HCT 34.5 L 41-54 MCV 88.2 fL 80-100 MCH 28.9 pg 27-33 MCHC 32.8 g/dL 32.0-37.5 PLT 249 10*3/uL 150-400 MPV 11.4 fL H 7.4-10.4 RDW 13.8 11.5-14.5 IPF 6.5 0-10 Mar 11, 2023 02:25 PM [facility] COMPREHENSIVE METABOLIC PANEL+MG Specimen Type: PLASMA No comment entered. Ordering Provider: ROZ VELASQUEZ Report Released Date/Time: Mar 11, 2023 01:03 PM Reporting Lab: [facility] [phone] Performing Lab: [facility] [phone] CREATININE 0.8 mg/dL 0.7-1.2 UREA NITROGEN 9 mg/dL 8-26 GLUCOSE 67 mg/dL L 70-100 SODIUM 137 mmol/L 136-145 POTASSIUM 4.4 mmol/L 3.5-5.1 CHLORIDE 105 mmol/L 98-107 CO2 24 mmol/L 22-29 CALCIUM 9.0 mg/dL 8.4-10.2 PROTEIN,TOTAL 7.4 g/dL 6.0-8.3 ALBUMIN 4.1 g/dL 3.5-5.2 BILIRUBIN, TOTAL 0.5 mg/dL 0.2-1.2 MAGNESIUM 1.7 mg/dL 1.6-2.6 ANION GAP 8 mmol/L 5-15 ALKALINE PHOSPHATASE 71 U/L 40-150 ALT/SGPT 12 U/L <55 AST/SGOT 13 U/L <34 .CREAT EGFR(CKD-EPI) >90 >60 Vital Signs: All taken on the encounter date This section contains inpatient and outpatient Vital Signs collected on the date of the Encounter. Date/Time Temperature Pulse Blood Pressure Respiratory Rate SP02 Pain Height Weight Body Mass Index Source Mar 11, 2023 01:51 PM 98.9 F 65 /min 132/84 mm[Hg] 20 /min 94 % 0 69 in 247.5 lb 37 [facility] Immunizations: All administered on the encounter date This section contains immunizations associated to the Encounter. Immunization Series Date Issued Reaction Comments COVID-19 (PFIZER), MRNA, LNP -S, PF, MARCOS-SUCROSE, 30 MCG/0.3 ML (AGES 12+ YEARS) 1 Mar 11, 2023 Social History: Smoking Status (Most current) and Tobacco Use (All prior to encounter date) This section includes the most current, and the historical, smoking and tobacco- related health factors from the [place] facility where the Encounter took place. Current Smoking Status This section includes the most current smoking, or tobacco-related health factor, from the [place] facility where the Encounter took place. Date/Time Current Smoking Status Comment Facil ity Aug 31, 2022 10:00 AM VA-TOBACCO NEVER USED [facility] Tobacco Use History This section includes a history of the smoking, or tobacco-related health factors, that were collected on or before the date of the Encounter. The data comes from the [place] facility where the Encounter took place. 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 NO [facility] Sep 12, 2020 09:30 AM VA-TOBACCO USE MED NO [facility] Sep 12, 2020 09:30 AM VA-TOBACCO USER SOME DAYS [facility] Sep 07, 2019 01:41 PM VA-TOBACCO DOESNT USE WI 30 MIN WAKEUP [facility] Sep 07, 2019 01:41 PM VA-TOBACCO USE 30 YEARS OR MORE [facility] Sep 07, 2019 01:41 PM VA-TOBACCO USE ADVICE [facility] Sep 07, 2019 01:41 PM 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 This section includes ALL of a patient's completed or amended [place] Advance and Rescinded Directives. The entries below indicate that a directive exists for the patient, but an actual copy is not included with this document. The data comes from all [place] facilities. Date Advance Directives Provider Source Aug 11, [address] [facility] Encounter Notes: All associated encounter notes This section contains the clinical notes associated to the Encounter. Date/Time Encounter Note(s) Provider Source Mar 11, 2023 01:52 PM PRIMARY CARE NURSI ALONZO NOTE: LOCAL TITLE: [facility] NURSING PROGRESS NOTE STANDARD TITLE: PRIMARY CARE NURSING NOTE DATE OF NOTE: MAR 11, 2023@13:52 ENTRY DATE: MAR 11, 2023@13:52:13 AUTHOR: JEREMIAS LEMONS COSIGNER: URGENCY: STATUS: COMPLETED TYPE OF VISIT: Appointment Check In Type of appointment: In-person appointment REASON FOR VISIT: Rtc 6 months ALLERGIES: Patient has answered NKA VITAL SIGNS: Blood Pressure: 132/84 (03/11/2023 13:51) Pulse: 65 (03/11/2023 13:51) Respiration: 20 (03/11/2023 13:51) Temperature: 98.9 F [37.2 C] (03/11/2023 13:51) Weight: 247.5 lb [112.26 kg] (03/11/2023 13:51) Height: 69 in [175.3 cm] (03/11/2023 13:51) BMI: 36.6 O2 Sat: 94% (03/11/2023 13:51) Pain: 0 (03/11/2023 13:51) PAIN SCREEN: Patient is not having significant pain that they wish to discuss with their provider today. COVID-19 Immunization: Pfizer Monovalent (Comirnaty) Vaccine information reviewed with the patient.The patient denied any prior severe reaction to this vaccine or its components or a severe allergic reaction such as anaphylaxis to any vaccine or to any injectable therapy.The patient gave verbal consent to receive vaccine. 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 The patient was advised to remain in the facility for 15 minutes post vaccination. Influenza Immunization: The patient declines to receive the recommended dose of seasonal influenza vaccine. Immunization: INFLUENZA, UNSPECIFIED FORMULATION Refusal Reason: PATIENT DECISION Patient refuses all immunization(s) in the FLU group Date Documented: 03/11/23 13:53 Pneumococcal Conjugate Vaccine (PCV15/PCV20): Refuses PCV vaccine Immunization: PNEUMOCOCCAL CONJUGATE, UNSPECIFIED FORMULATION Refusal Reason: PATIENT DECISION Patient refuses all immunization(s) in the PneumoPCV group Date Documented: 03/11/23 13:53 Homelessness/Food Insecurity Screen: In the past 2 months, have you been living in stable housing that you own, rent, or stay in as part of a household? Yes - Living in stable housing. Are you worried or concerned that in the next 2 months you may NOT have stable housing that you own, rent, or stay in as part of a household? No - Not worried about housing near future The reports the following: Within the past 12 months, you worried whether your food would run out before you got money to buy more. Never true Within the past 12 months, the food you bought just didn't last and you didn't have money to get more. Never true Food Insecurity Resources /es/ Jeremias Lemons LPN Signed: 03/11/2023 13:54 [facility] Mar 11, 2023 01:00 PM PRIMARY CARE NOTE: LOCAL TITLE: [facility] PROGRESS NOTE-[facility] TITLE: PRIMARY CARE NOTE DATE OF NOTE: MAR 11, 2023@13:00 ENTRY DATE: MAR 11, 2023@13:01:04 AUTHOR: KARY VELASQUEZ COSIGNER: URGENCY: STATUS: COMPLETED Today's Nurse check-in note reviewed Chief complaint: DM and anemia F/U History of Present Illness: The patient is a 72 year old MALE with diabetes re-evaluated. Labs were indicative of anemia. He denies ABD pain & bloody stools Vet is off the anticoagulant since ablation. Reports back pain relieved by NSAIDs which he takes daily /PRN ROS is negative, pertinent positive are listed above in HPI. Allergies: Patient has answered NKA Physical Exam: Vitals: 03/11/23 13:51 T: 98.9 F (37.2 C) P: 65 R: 20 B/P: 132/84 Ht: 69.00 in (175.26 cm) Wt.: 247.50 lb. (112.26 kg) Body Mass Index: 37* Pulse Oximetry: 94% via ROOM AIR Pain: 0 - No pain Constitutional: Alert, in no distress & healthy appearing Heart: Heart rate & rhythm normal, no murmur Pulmonary: No respiratory distress, clear bilateral breath sounds Abdominal: Normal bowel sounds, Non-tender, No hepato-splenomegaly, No abdominal mass palpated, no rebound tenderness Musculoskeletal: Gait and station normal Neurological: Alert and oriented x3 Assessment/Plan: 1. Diabetes : Controlled with Hb A1C at 6.8% , continue metformin and glipizide # PAVE Foot Check: Patient refused limb care exam. : [place] , except for neuropathy The patient was advised the [facility] mandates all patients with diabetes mellitus, end stage renal disease, peripheral vascular disease, or sensory neuropathy should have a complete foot check completed annually. This includes a visual exam of the skin, pedal pulses and a sensory exam. Patients with any abnormality noted during the foot check should be referred to a specialist. # AAA Screening: Order Ultrasound- [place] # Diabetic Eye Screening: Order placed for CC in [place] or close to home 2. Mild hyperkalemia & anemia: - Repeat labs today 3. Hypertension: BP well controlled 4. 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 Stable since cardiac ablation 5. Back Pain : Takes NSAIDs daily - Re-eval GI possible adverse reactions during next visit - Start lidocaine patches, ordered today At this visit I have reviewed the medication list, updated, and discussed relevant medications with the . verbalizes understanding and agrees with the treatment plan. Denies further questions. RTC with PCP in 6 months / JERMAINE /anahi/ KARY VELASQUEZ CNP NP [facility] Signed: 03/11/2023 16:44 [facility]
--- OUTSIDE RECORDS SUMMARY | 2023-11-15 16:19 | XMS_ITS | Encounter Summary ---
Author Name [facility] [place] [facility] [place] Address [address] [place] [address] Care Team Providers Care Auto Servicer Name Role Phone KARY EVLASQUEZ Primary Care Provider Unavail able Insurance Providers: [...] PART A Apr 19, 2015 PART A [id number] [phone] TENNILLE MORRIS PATIENT Selected Encounter This section includes the information on record at [place] for the Encounter. Date/Time Encounter Type Encounter Description Reason Provider Source Sep 02, 2023 04:08 PM Outpatient Encounter PRIMARY CARE/MEDICINE JOSE VELASQUEZ Lance Encounter Template Text not used by [place] Plan of Treatment: Future Appointments (+ 6 months) and Future Tests (+/- 45 days) The Plan of Treatment section includes future care activities for the patient from all [place] treatmentfacilities. This section includes future appointments and future orders which are active, pending or scheduled. Future Appointments This section includes appointments that were scheduled to occur 6 months from the date of the Encounter, up to a maximum of 20 appointments. The data comes from all [place] treatment facilities. Appointment Date/Time Appointment Type Appointme nt Facility Name Sep 10, 2023 12:00 PM AMBULATORY - MEDICINE [facility] October 09, 2023 09:00 AM AMBULATORY - NONE [facility] Lab Results: +/- 30 days of the encounter This section includes the Chemistry and Hematology Lab Results on record with [place] for the patient. Radiology Reports and Pathology [...] Sep 02, 2023 08:14 AM Reporting Lab: [facility] [id number] Performing Lab: [facility] [phone] OCCULT BLOOD (FIT) #1 OF 1 Negative Negative Sep 10, 2023 01:05 PM [facility] URINALYSIS Specimen Type: URINE No comment entered. Ordering Provider: BONNIE VELASQUEZ Report Released Date/Time: Sep 10, 2023 12:28 PM Reporting Lab: [facility] [id number] Performing Lab: [facility] [phone] URINE COLOR COLORLESS SPECIFIC GRAVITY 1.005 1.003-1.035 [...] Sep 02, 2023 08:14 AM Reporting Lab: [facility] [id number] Performing Lab: [facility] [phone] CREATININE,UR RANDOM 27.8 mg/dL L 58.0-161.0 ALB/CREAT [...] Sep 02, 2023 08:14 AM Reporting Lab: [facility] [id number] Performing Lab: [facility] [phone] HEMOGLOBIN A1C 6.7 H 4.0-6.0 Sep 10, 2023 12:42 PM [facility] CBC Specimen Type: BLOOD No comment entered. Ordering Provider: BONNIE VELASQUEZ Report Released Date/Time: Sep 02, 2023 08:14 AM Reporting Lab: [facility] [phone] Performing Lab: [facility] [phone] WBC 9.18 10*3/uL 4.0-11.0 RBC 4.28 10*6/uL [...] Sep 02, 2023 08:14 AM Reporting Lab: [facility] [phone] Performing Lab: [facility] [address] CREATININE 0.8 mg/dL 0.7-1.2 UREA NITROGEN 11 [...] Sep 10, 2023 12:28 PM Reporting Lab: [facility] [address] Performing Lab: [facility] [address] CHOLESTEROL 124 mg/dL <199 .HDL 39 mg/dL L >40 LDL CALCULATION 55 mg/dL <99 VLDL CALCULATION 30 mg/dL H <29 NON HDL CHOLESTEROL 85 mg/dL <129 TRIG(NON FASTING) 152 mg/dL H <149 Social History: Smoking Status (Most current) and Tobacco Use (All prior to encounter date) This section includes the most current, and the historical, smoking and tobacco- related health factors from the [place] facility where the Encounter took place. Current Smoking Status This section includes the most current smoking, or tobacco-related health factor, from the [place] facility where the Encounter took place. Date/Time Current Smoking Status Comment Facil esmer Aug 11, 2017 01:01 PM INPT NO TOBACCO USE IN LAST 30 D AYS [facility] Advance Directives: All historical and current Section Date Range: From patient's date of to the date document was created. This section includes ALL of a patient's completed or amended [place] Advance and Rescinded Directives. The entries below indicate that a directive exists for the patient, but an actual copy is not included with this document. The data comes from all [place] facilities. Date Advance Directives Provider Source Aug 11, 2017 CLINICAL WARNING [place] [facility] Encounter Notes: All associated encounter notes This section contains the clinical notes associated to the Encounter. Date/Time Encounter Note(s) Provider Source Sep 02, 2023 04:08 PM REPORT OF CONTACT: LOCAL TITLE: APPOINTMENT SCHEDULING NOTE STANDARD TITLE: REPORT OF CONTACT DATE OF NOTE: SEP 02, 2023@16:08 ENTRY DATE: SEP 02, 2023@16:09 AUTHOR: DEMARCUS HART EXP COSIGNER: URGENCY: STATUS: COMPLETED Attempted to schedule No show Contact: automated no-show letter queued to be sent If calls back, schedule appointment for: Reschedule appt that was no showed on 09/02/2023 for RTC 6M DM AND HTN /es/ DEMARCUS HART HISTORIAN RESEARCH ASSISTANT Signed: 09/02/2023 16:10 [facility]
--- OUTSIDE RECORDS SUMMARY | 2023-11-15 16:19 | XMS_ITS | Encounter Summary ---
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 Date/Time Encounter Type Encounter Description Reason Provider Source Sep 02, 2023 10:00 AM Outpatient Encounter PRIMARY CARE/MEDICINE JOSE VELASQUEZ Encounter Template Text not used by [place] Plan of Treatment: Future Appointments (+ 6 months) and Future Tests (+/- 45 days) The Plan of Treatment section includes future care activities for the patient from all [place] treatmentfacilities. This section includes future appointments and future orders which are active, pending or scheduled. Future Appointments This section includes appointments that were scheduled to occur 6 months from the date of the Encounter, up to a maximum of 20 appointments. The data comes from all [place] treatment facilities. Appointment Date/Time Appointment Type Appointme nt Facility Name Sep 10, 2023 12:00 PM AMBULATORY - MEDICINE [facility] October 09, 2023 09:00 AM AMBULATORY - NONE [facility] Lab Results: +/- 30 days of the encounter This section includes the Chemistry and Hematology Lab Results on record with [place] for the patient. Radiology Reports and Pathology [...] Sep 02, 2023 08:14 AM Reporting Lab: [facility] [id number] Performing Lab: [facility] [phone] OCCULT BLOOD (FIT) #1 OF 1 Negative Negative Sep 10, 2023 01:05 PM [facility] URINALYSIS Specimen Type: URINE No comment entered. Ordering Provider: BONNIE VELASQUEZ Report Released Date/Time: Sep 10, 2023 12:28 PM Reporting Lab: [facility] [address] Performing Lab: [facility] [address] URINE COLOR COLORLESS SPECIFIC GRAVITY 1.005 1.003-1.035 [...] Sep 02, 2023 08:14 AM Reporting Lab: [facility] [address] Performing Lab: [facility] [address] CREATININE,UR RANDOM 27.8 mg/dL L 58.0-161.0 ALB/CREAT [...] Sep 02, 2023 08:14 AM Reporting Lab: [facility] [address] Performing Lab: [facility] [address] HEMOGLOBIN A1C 6.7 H 4.0-6.0 Sep 10, 2023 12:42 PM [facility] CBC Specimen Type: BLOOD No comment entered. Ordering Provider: BONNIE VELASQUEZ Report Released Date/Time: Sep 02, 2023 08:14 AM Reporting Lab: [facility] [phone] Performing Lab: [facility] [address] WBC 9.18 10*3/uL 4.0-11.0 RBC 4.28 10*6/uL [...] Sep 02, 2023 08:14 AM Reporting Lab: [facility] [id number] Performing Lab: [facility] [address] CREATININE 0.8 mg/dL 0.7-1.2 UREA NITROGEN 11 [...] >60 Sep 10, 2023 12:42 PM [facility] LIPID PANEL,NON-FASTING Specimen Type: PLASMA No comment entered. Ordering Provider: BONNIE VELASQUEZ Report Released Date/Time: Sep 10, 2023 12:28 PM Reporting Lab: [facility] [phone] Performing Lab: [facility] [address] CHOLESTEROL 124 mg/dL <199 .HDL 39 mg/dL L >40 LDL CALCULATION 55 mg/dL <99 VLDL CALCULATION 30 mg/dL H <29 NON HDL CHOLESTEROL 85 mg/dL <129 TRIG(NON FASTING) 152 mg/dL H <149 Social History: Smoking Status (Most current) and Tobacco Use (All prior to encounter date) This section includes the most current, and the historical, smoking and tobacco- related health factors from the [facility] where the Encounter took place. Current Smoking Status This section includes the most current smoking, or tobacco-related health factor, from the [place] facility where the Encounter took place. Date/Time Current Smoking Status Comment Facil ity Aug 31, 2022 10:00 AM [place]-TOBACCO NEVER USED [facility] Tobacco Use History This section includes a history of the smoking, or tobacco-related health factors, that were collected on or before the date of the Encounter. The data comes from the [place] facility where the Encounter took place. 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 This section includes ALL of a patient's completed or amended [place] Advance and Rescinded Directives. The entries below indicate that a directive exists for the patient, but an actual copy is not included with this document. The data comes from all [place] facilities. Date Advance Directives Provider Source Aug 11, 2017 CLINICAL WARNING [facility] [facility]
--- OUTSIDE RECORDS SUMMARY | 2023-11-15 16:19 | XMS_ITS | Encounter Summary ---
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 Date/Time Encounter Type Encounter Description Reason Pro vider Source September 19, 2023 04:03 PM Outpatient Encounter COMMUNITY CARE CONSULT I[facility] Encounter Template Text not used by [place] Plan of Treatment: Future Appointments (+ 6 months) and Future Tests (+/- 45 days) The Plan of Treatment section includes future care activities for the patient from all [place] treatmentfacilities. This section includes future appointments and future orders which are active, pending or scheduled. Future Appointments This section includes appointments that were scheduled to occur 6 months from the date of the Encounter, up to a maximum of 20 appointments. The data comes from all [place] treatment facilities. Appointment Date/Time Appointment Type Appointme nt Facility Name October 09, 2023 09:00 AM AMBULATORY - NONE [facility] Lab Results: +/- 30 days of the encounter This section includes the Chemistry and Hematology Lab Results on record with [place] for the patient. Radiology Reports and Pathology Reports are provided separately, in subsequent sections. Lab Results This section contains the Chemistry/Hematology Results that were resulted 30 days before or 30 daysafter the date of the Encounter. Date/Time Source Result Type Result - Unit Interpretation Reference Range Comment September 26, 2023 12:24 PM [facility] OCCULT BLOOD FIT X1 SCREEN Specimen Type: FECES No comment entered. Ordering Provider: BONNIE VELASQUEZ Report Released Date/Time: Sep 02, 2023 08:14 AM Reporting Lab: [facility] [id number] Performing Lab: [facility] [address] OCCULT BLOOD (FIT) #1 OF 1 Negative Negative Sep 10, 2023 01:05 PM [facility] URINALYSIS Specimen Type: URINE No comment entered. Ordering Provider: BONNIE VELASQUEZ Report Released Date/Time: Sep 10, 2023 12:28 PM Reporting Lab: [facility] [id number] Performing Lab: [facility] [address] URINE COLOR COLORLESS SPECIFIC GRAVITY 1.005 1.003-1.035 [...] NEGATIVE Sep 10, 2023 01:04 PM [facility] ALBUMIN/CREATININE RATIO URINE Specimen Type: URINE No comment entered. Ordering Provider: BONNIE VELASQUEZ Report Released Date/Time: Sep 02, 2023 08:14 AM Reporting Lab: [facility] [id number] Performing Lab: [facility] [id number] CREATININE,UR RANDOM 27.8 mg/dL L 58.0-161.0 ALB/CREAT [...] Sep 02, 2023 08:14 AM Reporting Lab: [facility] [id number] Performing Lab: [facility] [address] HEMOGLOBIN A1C 6.7 H 4.0-6.0 Sep 10, 2023 12:42 PM [facility] CBC Specimen Type: BLOOD No comment entered. Ordering Provider: BONNIE VELASQUEZ Report Released Date/Time: Sep 02, 2023 08:14 AM Reporting Lab: [facility] [address] Performing Lab: [facility] [address] WBC 9.18 10*3/uL 4.0-11.0 RBC 4.28 10*6/uL [...] Sep 02, 2023 08:14 AM Reporting Lab: [facility] [id number] Performing Lab: [facility] [address] CREATININE 0.8 mg/dL 0.7-1.2 UREA NITROGEN 11 [...] Sep 10, 2023 12:28 PM Reporting Lab: [facility] [id number] Performing Lab: [facility] [address] CHOLESTEROL 124 mg/dL <199 .HDL 39 mg/dL L >40 LDL CALCULATION 55 mg/dL <99 VLDL CALCULATION 30 mg/dL H <29 NON HDL CHOLESTEROL 85 mg/dL <129 TRIG(NON FASTING) 152 mg/dL H <149 Social History: Smoking Status (Most current) and Tobacco Use (All prior to encounter date) This section includes the most current, and the historical, smoking and tobacco- related health factors from the [place] facility where the Encounter took place. Current Smoking Status This section includes the most current smoking, or tobacco-related health factor, from the [place] facility where the Encounter took place. Date/Time Current Smoking Status Comment Facil esmer Aug 11, 2017 01:01 PM INPT NO TOBACCO USE IN LAST 30 D AYS [facility] Advance Directives: All historical and current Section Date Range: From patient's date of to the date document was created. This section includes ALL of a patient's completed or amended [place] Advance and Rescinded Directives. The entries below indicate that a directive exists for the patient, but an actual copy is not included with this document. The data comes from all [place] facilities. Date Advance Directives Provider Source Aug 11, 2017 CLINICAL WARNING [facility] [facility] Encounter Notes: All associated encounter notes This section contains the clinical notes associated to the Encounter. 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 Your medical care for ULTRASOUND ABDOMEN has been authorized with the community care provider listed below. DO NOT REPORT TO THE [place] [facility] Provider info: Care has been approved for the following vendor: Office name, address, and phone number: [address] [address] PH: [phone] Please contact the identified provider to schedule your community appointment. If you need assistance with this appointment, please call your facility community care office [facility] Office of Community Care at [phone] during the hours of 8:30AM - 3:00PM. Please follow up with your local [facility] community care office once this is scheduled. This step is needed to ensure your referral duration is maximized and the [place] has accurate referral information for billing purposes. Authorization Number: [id number] Referral Issue Date: Aug Expiration Date: Oct (subject to change based on first appointment) If you are unable to schedule this appointment or the appointment is no longer needed, please contact the community provider above for notification/rescheduling and then call the [facility] Office of Community Care at [phone] during the hours of 8:30AM - 3:00PM. If you need additional care/services not mentioned above or your authorization has and additional care is needed, please contact your primary care provider for a new referral. To review all care/service(s) approved under your referral, please go to the following link: [employer] [facility]([email or web address]) Co-Payments: If you are required to pay a VA co-payment, you will be billed by the VA for each authorized visit that you attend. However, you are NOT REQUIRED to make co-payments to a community provider. Thank you for the opportunity to serve you. Sincerely, [place] Community Care ([facility]) /anahi/ IRON MCCLOUD Signed: 09/19/2023 16:05 [facility]
--- OUTSIDE RECORDS SUMMARY | 2023-11-15 16:19 | XMS_ITS | Encounter Summary ---
Author Name [facility] [place] [facility] [place] Address [address] [place] [id number] Care Team Providers Care Commercial Ocean Clammer Name Role Phone KARY VELASQUEZ Primary Care [...] PART A Apr 19, 2015 PART A [id number] TENNILLE MORRIS PATIENT Selected Encounter This section includes the information on record at [place] for the Encounter. Date/Time Encounter Type Encounter Description Reason Provider Source Sep 10, 2023 12:00 PM OFFICE O/P EST HI 40 MIN PRIMARY CARE/MEDICINE ICD-10-CM I10 Essential (primary) hypertension ROZ VELASQUEZ [facility] Encounter Template Text not used by [place] Assessments - Encounter Diagnoses This section includes the primary and secondary diagnoses documented for the Encounter. 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 This section includes future appointments and future orders which are active, pending or scheduled. Future Appointments This section includes appointments that were scheduled to occur 6 months from the date of the Encounter, up to a maximum of 20 appointments. The data comes from all [facility] facilities. Appointment Date/Time Appointment Type Appointme nt Facility Name October 09, 2023 09:00 AM AMBULATORY - NONE [facility] Lab Results: +/- 30 days of the encounter This section includes the Chemistry and Hematology Lab Results on record with [place] for the patient. Radiology Reports and Pathology [...] Sep 02, 2023 08:14 AM Reporting Lab: [facility] [id number] Performing Lab: [facility] [id number] OCCULT BLOOD (FIT) #1 OF 1 Negative Negative Sep 10, 2023 01:05 PM [facility] URINALYS[facility] Specimen Type: URINE No comment entered. Ordering Provider: BONNIE VELASQUEZ Report Released Date/Time: Sep 10, 2023 12:28 PM Reporting Lab: [facility] [id number] Performing Lab: [facility] [id number] URINE COLOR COLORLESS SPECIFIC GRAVITY 1.005 1.003-1.035 [...] Sep 02, 2023 08:14 AM Reporting Lab: [facility] [id number] Performing Lab: [facility] [address] CREATININE,UR RANDOM 27.8 mg/dL L 58.0-161.0 ALB/CREAT RATIO,UR 441.4 mg/g{creat} H <29.9 ALBUMIN,UR 122.7 mg/L H <29.9 Sep 10, 2023 12:42 PM [facility] HEMOGLOBIN A1C Specimen Type: [...] Sep 02, 2023 08:14 AM Reporting Lab: [facility] [id number] Performing Lab: [facility] [id number] HEMOGLOBIN A1C 6.7 H 4.0-6.0 Sep 10, 2023 12:42 PM [facility] CBC Specimen Type: BLOOD No comment entered. Ordering Provider: BONNIE VELASQUEZ Report Released Date/Time: Sep 02, 2023 08:14 AM Reporting Lab: [facility] [id number] Performing Lab: [facility] [phone] WBC 9.18 10*3/uL 4.0-11.0 RBC 4.28 10*6/uL L 4.6-6.2 HGB 12.9 g/dL L 13.5-17.9 HCT 38.4 L 41-54 MCV 89.7 fL 80-100 MCH 30.1 pg 27-33 MCHC 33.6 g/dL 32.0-37.5 PLT 261 10*3/uL 150-400 MPV 11.0 fL H 7.4-10.4 RDW 13.3 11.5-14.5 Sep 10, 2023 12:42 PM [facility] COMPREHENSIVE METABOLIC PANEL+MG Specimen Type: PLASMA No comment entered. Ordering Provider: BONNIE VELASQUEZ Report Released Date/Time: Sep 02, 2023 08:14 AM Reporting Lab: [facility] [id number] Performing Lab: [facility] [id number] CREATININE 0.8 mg/dL 0.7-1.2 UREA NITROGEN 11 [...] Sep 10, 2023 12:28 PM Reporting Lab: [facility] [id number] Performing Lab: [facility] [phone] CHOLESTEROL 124 mg/dL <199 .HDL 39 mg/dL L >40 LDL CALCULATION 55 mg/dL <99 VLDL CALCULATION 30 mg/dL H <29 NON HDL CHOLESTEROL 85 mg/dL <129 TRIG(NON FASTING) 152 mg/dL H <149 Vital Signs: All taken on the encounter date This section contains inpatient and outpatient Vital Signs collected on the date of the Encounter. Date/Time Temperature Pulse Blood Pressure Respiratory Rate SP02 Pain Height Weight Body Mass Index Source Sep 10, 2023 12:11 PM 98.2 76 130/86 20 95 0 69 257.6 38 [facility] Social History: Smoking Status (Most current) and Tobacco Use (All prior to encounter date) This section includes the most current, and the historical, smoking and tobacco- related health factors from the [place] facility where the Encounter took place. Current Smoking Status This section includes the most current smoking, or tobacco-related health factor, from the [place] facility where the Encounter took place. Date/Time Current Smoking Status Comment Facil ity Sep 10, 2023 12:00 PM VA-TOBACCO USER SOME DAYS [facility] Tobacco Use History This section includes a history of the smoking, or tobacco-related health factors, that were collected on or before the date of the Encounter. The data comes from the [place] facility where the Encounter took place. 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 [facility] Sep 10, 2023 12:00 PM VA-TOBACCO USE MED NO [facility] Sep 10, 2023 12:00 PM VA-TOBACCO USER SOME DAYS [facility] Aug 31, 2022 10:00 AM VA-TOBACCO NEVER USED [facility] Sep 12, 2021 10:30 AM VA-TOBACCO DOESNT USE WI 30 MIN WAKEUP [facility] Sep 12, 2021 10:30 AM VA-TOBACCO USE 30 YEARS OR MORE [facility] Sep 12, 2021 10:30 AM VA-TOBACCO USE ADVICE [facility] Sep 12, 2021 10:30 AM 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 The entries below indicate that a directive exists for the patient, but an actual copy is not included with this document. The data comes from all [place] facilities. Date Advance Directives Provider Source Aug 11, 2017 CLINICAL WARNING [facility] Encounter Notes: All associated encounter notes This section contains the clinical notes associated to the Encounter. Date/Time Encounter Note(s) Provider Source Oct 19, 2023 12:21 PM ADDENDUM: LOCAL TITLE: Addendum STANDARD TITLE: ADDENDUM DATE OF NOTE: OCT 19, 2023@12:21:13 ENTRY DATE: OCT 19, 2023@12:21:15 AUTHOR: KARY VELASQUEZ EXP COSIGNER: URGENCY: STATUS: COMPLETED CC US of abdomen showed fatty liver and enlarged bladder(10/09/23) - Recommend weight loss,lose five to seven percent of body weight (1 to 2 lb per week) - Refrain from heavy alcohol >14 drinks per week or >4 drinks on a given day - Keep blood pressure < 130/80 most days of the week [facility] LEARNING AND DEVELOPMENT MANAGER please update vet /es/ KARY VELASQUEZ,DEALER ACCOUNTS INVESTIGATOR BISCUIT FACTORY WORKER [facility] Signed: 10/19/2023 12:29 Receipt Acknowledged By: 10/21/2023 11:29 /es/ Jeremias Lemons LPN --- Original Document --- 09/10/23 [facility] PROGRESS NOTE[facility]: Chief Complaint: Follow up care HPI: 73 year old MALE with diabetes, sleep apnea, hypertension, history of CAD, atrial fib/ flutter, gout, here for evaluation Past Medical History: Active problems - Computerized Problem List is the source for the followin. Gout (SNOMED CT 18800036) 2. Hypertension (SNOMED CT 73318779) 3. Tinnitus 4. Obstructive sleep apnea syndrome 5. Obesity 6. Diabetes mellitus 7. Hypertensive disorder 8. Cardiomegaly 9. Atrial flutter 10. Long-term current use of anticoagulant - History 11. Back pain Medication Reconciliation: Education Evaluations *Was medication education provided for NEW medications or CHANGES to medications? (including medication name, dose, route, reason for use, and potential side effects). No new medications or medication changes during this encounter. TERATOGENIC MED & CONTRACEPTION REVIEW (Optional)... ======= MEDICATION RECONCILIATION ======= Active and Recently Outpatient Medications (including Supplies): Issue Date Status Last Fill Active Outpatient Medications Refills Expiration 1) AMLODIPINE BESYLATE 10MG TAB Qty: 90 ACTIVE Issu:03-11-23 for 90 days Sig: TAKE ONE TABLET BY Refills: 2 Last:07-08-23 MOUTH EVERY DAY FOR BLOOD PRESSURE Expr:03-11-24 2) ATORVASTATIN CALCIUM 20MG TAB Qty: 90 ACTIVE Issu:03-11-23 for 90 days Sig: TAKE ONE TABLET BY Refills: 2 Last:06-19-23 MOUTH EVERY DAY FOR CHOLESTEROL Expr:03-11-24 3) BENAZEPRIL HCL 20MG TAB Qty: 180 for 90 ACTIVE Issu:03-11-23 days Sig: TAKE TWO TABLETS BY MOUTH Refills: 2 Last:08-29-23 EVERY DAY FOR BLOOD PRESSURE Expr:03-11-24 4) FUROSEMIDE 20MG TAB Qty: 90 for 90 days ACTIVE (S) Issu:09-10-23 Sig: TAKE ONE TABLET BY MOUTH EVERY Refills: 3 Last:09-10-23 DAY NEEDED FOR EXCESS FLUID Expr:09-10-24 5) GLIPIZIDE 10MG TAB Qty: 180 for 90 days ACTIVE (S) Issu:03-11-23 Sig: TAKE ONE TABLET BY MOUTH TWICE A Refills: 1 Last:11-23-23 DAY FOR DIABETES -TAKE 30 MINUTES Expr:03-11-24 BEFORE MEAL 6) LIDOCAINE 5% PATCH Qty: 90 for 90 days ACTIVE Issu:03-11-23 Sig: APPLY 1 PATCH TOPICALLY EVERY DAY Refills: 3 Last:03-11-23 FOR UP TO 12 HOURS FOR PAIN Expr:03-11-24 7) METFORMIN HCL 1000MG TAB Qty: 180 for ACTIVE Issu:12-12-22 90 days Sig: TAKE ONE TABLET BY MOUTH Refills: 1 Last:06-12-23 TWICE A DAY TO DECREASE BLOOD SUGAR Expr:12-13-23 -TAKE WITH FOOD 8) METOPROLOL TARTRATE 100MG TAB Qty: 180 ACTIVE Issu:02-11-23 for 90 days Sig: TAKE ONE TABLET BY Refills: 1 Last:08-08-23 MOUTH TWICE A DAY FOR HEART RHYTHM Expr:02-12-24 9) SILDENAFIL CITRATE 100MG TAB Qty: 9 for ACTIVE Issu:01-25-23 90 days Sig: TAKE ONE-HALF TABLET BY Refills: 2 Last:08-22-23 MOUTH NEEDED FOR ERECTIONS - TAKE Expr:01-26-24 1 HOUR BEFORE ANTICIPATED SEXUAL ACTIVITY-- FOR SEXUAL ACTIVITY Issue Date Status Last Fill Inactive Outpatient Medications Refills Expiration 1) AMLODIPINE BESYLATE 10MG TAB Qty: 90 DISCONTINUED Issu:07-10-22 for 90 days Sig: TAKE ONE TABLET BY Refills: 1 Last:01-04-23 MOUTH EVERY DAY FOR BLOOD PRESSURE Expr:07-11-23 2) ATORVASTATIN CALCIUM 20MG TAB Qty: 90 DISCONTINUED Issu:08-31-22 for 90 days Sig: TAKE ONE TABLET BY Refills: 2 Last:11-29-22 MOUTH EVERY DAY FOR CHOLESTEROL Expr:09-01-23 3) BENAZEPRIL HCL 20MG TAB Qty: 180 for 90 DISCONTINUED Issu:08-02-22 days Sig: TAKE TWO TABLETS BY MOUTH Refills: 1 Last:02-22-23 EVERY DAY FOR BLOOD PRESSURE Expr:08-03-23 4) DOCUSATE NA 100MG CAP Qty: 100 for 50 DISCONTINUED Issu:03-11-23 days Sig: TAKE ONE CAPSULE BY MOUTH Refills: 6 Last:03-11-23 TWO TIMES A DAY NEEDED FOR Expr:03-11-24 CONSTIPATION 5) GLIPIZIDE 10MG TAB Qty: 180 for 90 days DISCONTINUED Issu:08-20-22 Sig: TAKE ONE TABLET BY MOUTH TWICE A Refills: 1 Last:03-01-23 DAY FOR DIABETES -TAKE 30 MINUTES Expr:08-21-23 BEFORE MEAL Start Date Active Non-VA Medications Refills Expiration 1) Non-VA MULTIVITAMIN CAP/TAB Si ACTIVE TABLET MOUTH EVERY DAY 2) Non-VA NON VA MED NOT LISTED ACTIVE MISCELLANEOUS Sig: BIO FLEX 16 Total Medications Allergies: Patient has answered NKA REVIEW OF SYSTEMS: ----- Remainder of 10 point ROS is negative, except as above. Vital signs: 09/10/23 12:11 T: 98.2 F (36.8 C) P: 76 R: 20 B/P: 130/86 Ht: 69.00 in (175.26 cm) Wt.: 257.60 lb. (116.85 kg) Body Mass Index: 38* Pulse Oximetry: 95% via ROOM AIR Pain: 0 - No pain Exam: General: In no acute distress HEENT: PERRL, Normal pharynx, no oral lesions, mucous membranes are moist Neck: Normal ROM, neck supple Pulmonary/ chest: Lungs are clear, no wheezing or rales. Normal symmetric air entry throughout both lung ny. CV: Regular rate and rhythm, no murmurs, clicks, gallops or rubs Abdomen: Bowel sounds are normal,non-tender, soft, non-distended Extremities: No clubbing, cyanosis, or edema. Skin: No concerning lesions Neuro: Alert and oriented to person, place and time Psych: Normal flow of thought and speech ASSESSMENT/PLAN: 1. Diabetes: Last hemoglobin A1c was 6.8%(01/2023) Diabetic Eye Screening: Order placed for - CC Repeat hemoglobin A1c today - On metformin and glipizide PAVE Foot Check: A complete foot check was completed at this encounter. VISUAL INSPECTION: Includes inspection for skin breaks, deformity, erythema, trauma, pallor on elevation, dependent rubor, nail deformities, extensive callus and pitting edema. Visual exam results: Normal PEDAL PULSES: Includes palpation of dorsalis and posterior tibial pulses and signs/symptoms of vascular compromise like pain, pallor, paresthesia or paralysis. Present (even if diminished) SENSORY CHECK: Includes 10 gram Monofilament ([place]-Ana) test of sensation. Intact (Greater than or equal to 80% of sites checked) Abnormal (Less than 80% of sites checked): Abnormal (decreased or absent sensation to monofilament): LOW-RISK: LOW RISK INFORMATION PROVIDED: 1. Advised patient not to walk barefoot. 2. Explained the importance of daily foot checks for changes. 3. Stressed the importance of daily foot hygiene, including bathing and complete drying. 2. Hypertension/coronary artery disease: Hx of atrial fib,on apixaban. BP well controlled with CCB, ACEI and beta- scarlet, on statin 3. Edema right leg: Hx of cellulitis, now with pitting edema, no open wounds. Positive for neuropathy. Mild redness noted Recommend elevating legs when resting for prolonged hours. Furosemide 20 mg daily as needed for edema Other preventive care: Periodic labs ordered Avg Risk Colorectal Cancer Screen: AVERAGE RISK colorectal cancer screening is due based on information available to this clinical reminder FOBT/FIT (Fecal Immunochemical Testing) has been ordered. See order tab for details. - If any acute problems-> to ED At this visit I have reviewed the medication list, updated, and discussed relevant medications with the . Towanda verbalizes understanding and agrees with the treatment plan. Denies further questions. RTC in ... 6 months /anahi/ KARY VELASQUEZ CNP NP [facility] Signed: 09/10/2023 17:15 10/21/2023 ADDENDUM STATUS: COMPLETED Message left for Towanda to return call. /anahi/ Jeremias Lemons LPN Signed: 10/21/2023 11:30 [facility] Sep 10, 2023 12:27 PM PRIMARY CARE NOTE: LOCAL TITLE: [facility] PROGRESS NOTE-[facility] STANDARD TITLE: PRIMARY CARE NOTE DATE OF NOTE: SEP 10, 2023@12:27 ENTRY DATE: SEP 10, 2023@12:27:27 AUTHOR: KARY VELASQUEZ EXP COSIGNER: URGENCY: STATUS: COMPLETED [facility] PROGRESS NOTE-[facility] Has ADDENDA Chief Complaint: Follow up care HPI: 73 year old MALE with diabetes, sleep apnea, hypertension, history of CAD, atrial fib/ flutter, gout, here for evaluation Past Medical History: Active problems - Computerized Problem List is the source for the followin. Gout (SNOMED CT 18104298) 2. Hypertension (SNOMED CT 39589306) 3. Tinnitus 4. Obstructive sleep apnea syndrome 5. Obesity 6. Diabetes mellitus 7. Hypertensive disorder 8. Cardiomegaly 9. Atrial flutter 10. Long-term current use of anticoagulant - History 11. Back pain Medication Reconciliation: Education Evaluations *Was medication education provided for NEW medications or CHANGES to medications? (including medication name, dose, route, reason for use, and potential side effects). No new medications or medication changes during this encounter. TERATOGENIC MED & CONTRACEPTION REVIEW (Optional)... ======= MEDICATION RECONCILIATION ======= Active and Recently Outpatient Medications (including Supplies): Issue Date Status Last Fill Active Outpatient Medications Refills Expiration 1) AMLODIPINE BESYLATE 10MG TAB Qty: 90 ACTIVE Issu:03-11-23 for 90 days Sig: TAKE ONE TABLET BY Refills: 2 Last:07-08-23 MOUTH EVERY DAY FOR BLOOD PRESSURE Expr:03-11-24 2) ATORVASTATIN CALCIUM 20MG TAB Qty: 90 ACTIVE Issu:03-11-23 for 90 days Sig: TAKE ONE TABLET BY Refills: 2 Last:06-19-23 MOUTH EVERY DAY FOR CHOLESTEROL Expr:03-11-24 3) BENAZEPRIL HCL 20MG TAB Qty: 180 for 90 ACTIVE Issu:03-11-23 days Sig: TAKE TWO TABLETS BY MOUTH Refills: 2 Last:08-29-23 EVERY DAY FOR BLOOD PRESSURE Expr:03-11-24 4) FUROSEMIDE 20MG TAB Qty: 90 for 90 days ACTIVE (S) Issu:09-10-23 Sig: TAKE ONE TABLET BY MOUTH EVERY Refills: 3 Last:09-10-23 DAY NEEDED FOR EXCESS FLUID Expr:09-10-24 5) GLIPIZIDE 10MG TAB Qty: 180 for 90 days ACTIVE (S) Issu:03-11-23 Sig: TAKE ONE TABLET BY MOUTH TWICE A Refills: 1 Last:11-23-23 DAY FOR DIABETES -TAKE 30 MINUTES Expr:03-11-24 BEFORE MEAL 6) LIDOCAINE 5% PATCH Qty: 90 for 90 days ACTIVE Issu:03-11-23 Sig: APPLY 1 PATCH TOPICALLY EVERY DAY Refills: 3 Last:03-11-23 FOR UP TO 12 HOURS FOR PAIN Expr:03-11-24 7) METFORMIN HCL 1000MG TAB Qty: 180 for ACTIVE Issu:12-12-22 90 days Sig: TAKE ONE TABLET BY MOUTH Refills: 1 Last:06-12-23 TWICE A DAY TO DECREASE BLOOD SUGAR Expr:12-13-23 -TAKE WITH FOOD 8) METOPROLOL TARTRATE 100MG TAB Qty: 180 ACTIVE Issu:02-11-23 for 90 days Sig: TAKE ONE TABLET BY Refills: 1 Last:08-08-23 MOUTH TWICE A DAY FOR HEART RHYTHM Expr:02-12-24 9) SILDENAFIL CITRATE 100MG TAB Qty: 9 for ACTIVE Issu:01-25-23 90 days Sig: TAKE ONE-HALF TABLET BY Refills: 2 Last:08-22-23 MOUTH NEEDED FOR ERECTIONS - TAKE Expr:01-26-24 1 HOUR BEFORE ANTICIPATED SEXUAL ACTIVITY-- FOR SEXUAL ACTIVITY Issue Date Status Last Fill Inactive Outpatient Medications Refills Expiration 1) AMLODIPINE BESYLATE 10MG TAB Qty: 90 DISCONTINUED Issu:07-10-22 for 90 days Sig: TAKE ONE TABLET BY Refills: 1 Last:01-04-23 MOUTH EVERY DAY FOR BLOOD PRESSURE Expr:07-11-23 2) ATORVASTATIN CALCIUM 20MG TAB Qty: 90 DISCONTINUED Issu:08-31-22 for 90 days Sig: TAKE ONE TABLET BY Refills: 2 Last:11-29-22 MOUTH EVERY DAY FOR CHOLESTEROL Expr:09-01-23 3) BENAZEPRIL HCL 20MG TAB Qty: 180 for 90 DISCONTINUED Issu:08-02-22 days Sig: TAKE TWO TABLETS BY MOUTH Refills: 1 Last:02-22-23 EVERY DAY FOR BLOOD PRESSURE Expr:08-03-23 4) DOCUSATE NA 100MG CAP Qty: 100 for 50 DISCONTINUED Issu:03-11-23 days Sig: TAKE ONE CAPSULE BY MOUTH Refills: 6 Last:03-11-23 TWO TIMES A DAY NEEDED FOR Expr:03-11-24 CONSTIPATION 5) GLIPIZIDE 10MG TAB Qty: 180 for 90 days DISCONTINUED Issu:08-20-22 Sig: TAKE ONE TABLET BY MOUTH TWICE A Refills: 1 Last:03-01-23 DAY FOR DIABETES -TAKE 30 MINUTES Expr:08-21-23 BEFORE MEAL Start Date Active Non-VA Medications Refills Expiration 1) Non-VA MULTIVITAMIN CAP/TAB Si ACTIVE TABLET MOUTH EVERY DAY 2) Non-VA NON VA MED NOT LISTED ACTIVE MISCELLANEOUS Sig: BIO FLEX 16 Total Medications Allergies: Patient has answered NKA REVIEW OF SYSTEMS: ----- Remainder of 10 point ROS is negative, except as above. Vital signs: 09/10/23 12:11 T: 98.2 F (36.8 C) P: 76 R: 20 B/P: 130/86 Ht: 69.00 in (175.26 cm) Wt.: 257.60 lb. (116.85 kg) Body Mass Index: 38* Pulse Oximetry: 95% via ROOM AIR Pain: 0 - No pain Exam: General: In no acute distress HEENT: PERRL, Normal pharynx, no oral lesions, mucous membranes are moist Neck: Normal ROM, neck supple Pulmonary/ chest: Lungs are clear, no wheezing or rales. Normal symmetric air entry throughout both lung ny. CV: Regular rate and rhythm, no murmurs, clicks, gallops or rubs Abdomen: Bowel sounds are normal,non-tender, soft, non-distended Extremities: No clubbing, cyanosis, or edema. Skin: No concerning lesions Neuro: Alert and oriented to person, place and time Psych: Normal flow of thought and speech ASSESSMENT/PLAN: 1. Diabetes: Last hemoglobin A1c was 6.8%(01/2023) Diabetic Eye Screening: Order placed for - CC Repeat hemoglobin A1c today - On metformin and glipizide PAVE Foot Check: A complete foot check was completed at this encounter. VISUAL INSPECTION: Includes inspection for skin breaks, deformity, erythema, trauma, pallor on elevation, dependent rubor, nail deformities, extensive callus and pitting edema. Visual exam results: Normal PEDAL PULSES: Includes palpation of dorsalis and posterior tibial pulses and signs/symptoms of vascular compromise like pain, pallor, paresthesia or paralysis. Present (even if diminished) SENSORY CHECK: Includes 10 gram Monofilament ([place]-Ana) test of sensation. Intact (Greater than or equal to 80% of sites checked) Abnormal (Less than 80% of sites checked): Abnormal (decreased or absent sensation to monofilament): LOW-RISK: LOW RISK INFORMATION PROVIDED: 1. Advised patient not to walk barefoot. 2. Explained the importance of daily foot checks for changes. 3. Stressed the importance of daily foot hygiene, including bathing and complete drying. 2. Hypertension/coronary artery disease: Hx of atrial fib,on apixaban. BP well controlled with CCB, ACEI and beta- scarlet, on statin 3. Edema right leg: Hx of cellulitis, now with pitting edema, no open wounds. Positive for neuropathy. Mild redness noted Recommend elevating legs when resting for prolonged hours. Furosemide 20 mg daily as needed for edema Other preventive care: Periodic labs ordered Avg Risk Colorectal Cancer Screen: AVERAGE RISK colorectal cancer screening is due based on information available to this clinical reminder FOBT/FIT (Fecal Immunochemical Testing) has been ordered. See order tab for details. - If any acute problems-> to ED At this visit I have reviewed the medication list, updated, and discussed relevant medications with the . verbalizes understanding and agrees with the treatment plan. Denies further questions. RTC in ... 6 months /anahi/ KARY VELASQUEZ CNP NP [facility] Signed: 09/10/2023 17:15 10/19/2023 ADDENDUM STATUS: COMPLETED CC US of abdomen showed fatty liver and enlarged bladder(10/09/23) - Recommend weight loss,lose five to seven percent of body weight (1 to 2 lb per week) - Refrain from heavy alcohol >14 drinks per week or >4 drinks on a given day - Keep blood pressure < 130/80 most days of the week [facility] LEARNING AND DEVELOPMENT MANAGER please update vet /anahi/ KARY VELASQUEZ CNP NP [facility] Signed: 10/19/2023 12:29 Receipt Acknowledged By: 10/21/2023 11:29 /deny Lemons LPN 10/21/2023 ADDENDUM STATUS: COMPLETED Message left for Towanda to return call. /anahi/ Jeremias Lemons LPN Signed: 10/21/2023 11:30 10/23/2023 ADDENDUM STATUS: COMPLETED Nurse spoke to Towanda who stated understanding of results and treatment/follow up. /anahi/ Jeremias Lemons LEARNING AND DEVELOPMENT MANAGER Signed: 10/23/2023 08:44 MANISHAKARY GARCÍA [facility]hu [facility] Sep 10, 2023 12:12 PM PRIMARY CARE NURSI NG NOTE: LOCAL TITLE: CBOC NURSING PROGRESS NOTE STANDARD TITLE: PRIMARY CARE NURSING NOTE DATE OF NOTE: SEP 10, 2023@12:12 ENTRY DATE: SEP 10, 2023@12:12:09 AUTHOR: JEREMIAS LEMONS EXP COSIGNER: URGENCY: STATUS: COMPLETED TYPE OF VISIT: Appointment Check In Type of appointment: In-person appointment REASON FOR VISIT: Rtc 6 months ALLERGIES: Patient has answered NKA VITAL SIGNS: Blood Pressure: 130/86 (09/10/2023 12:11) Pulse: 76 (09/10/2023 12:11) Respiration: 20 (09/10/2023 12:11) Temperature: 98.2 F [36.8 C] (09/10/2023 12:11) Weight: 257.6 lb [116.85 kg] (09/10/2023 12:11) Height: 69 in [175.3 cm] (09/10/2023 12:11) BMI: 38.1 O2 Sat: 95% (09/10/2023 12:11) Pain: 0 (09/10/2023 12:11) PAIN SCREEN: Patient is not having significant pain that they wish to discuss with their provider today. Suicide Screen: C-SSRS Screening [place] Suicide Severity Rating Scale (C-SSRS) screener 1. Over the past month, have you wished you were or wished you could go to sleep and not wake up? No 2. Over the past month, have you had any actual thoughts of killing yourself? No 3. Over the past month, have you been thinking about how you might do this? Response not required due to responses to other questions. 4. Over the past month, have you had these thoughts and had some intention of acting on them? Response not required due to responses to other questions. 5. Over the past month, have you started to work out or worked out the details of how to kill yourself? Response not required due to responses to other questions. 6. If yes, at any time in the past month did you intend to carry out this plan? Response not required due to responses to other questions. 7. In your lifetime, have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
--- OUTSIDE RECORDS SUMMARY | 2023-11-15 16:19 | XMS_ITS | Encounter Summary ---
Author Name [facility] [place] [place] Organization [facility] [place] Address [address] [place] [id number] Care Team Providers Care Switching Operator Name Role Phone KARY VELASQUEZ Primary Care [...] PART A Apr 19, 2015 PART A [id number] [id number] [phone] TENNILLE MORRIS PATIENT Selected Encounter This section includes the information on record at [place] for the Encounter. Date/Time Encounter Type Encounter Description Reason Pro vider Source Sep 10, 2023 12:00 AM Outpatient Encounter EVENT (HISTORICAL) IHE Encounter Template Text not used by [place] Plan of Treatment: Future Appointments (+ 6 months) and Future Tests (+/- 45 days) The Plan of Treatment section includes future care activities for the patient from all [place] treatmentfacilities. This section includes future appointments and future orders which are active, pending or scheduled. Future Appointments This section includes appointments that were scheduled to occur 6 months from the date of the Encounter, up to a maximum of 20 appointments. The data comes from all [place] treatment facilities. Appointment Date/Time Appointment Type Appointme nt Facility Name October 09, 2023 09:00 AM AM[facility]UL[facility] - NONE [place] Lab Results: +/- 30 days of the encounter This section includes the Chemistry and Hematology Lab Results on record with [place] for the patient. Radiology Reports and Pathology [...] Sep 02, 2023 08:14 AM Reporting Lab: [facility] [id number] Performing Lab: [facility] [phone] OCCULT BLOOD (FIT) #1 OF 1 Negative Negative Sep 10, 2023 01:05 PM [facility] URINALYSIS Specimen Type: URINE No comment entered. Ordering Provider: BONNIE VELASQUEZ Report Released Date/Time: Sep 10, 2023 12:28 PM Reporting Lab: [facility] [address] Performing Lab: [facility] [address] URINE COLOR COLORLESS SPECIFIC GRAVITY 1.005 1.003-1.035 [...] Sep 02, 2023 08:14 AM Reporting Lab: [facility] [address] Performing Lab: [facility] [address] CREATININE,UR RANDOM 27.8 mg/dL L 58.0-161.0 ALB/CREAT [...] Sep 02, 2023 08:14 AM Reporting Lab: [facility] [address] Performing Lab: [facility] [address] HEMOGLOBIN A1C 6.7 H 4.0-6.0 Sep 10, 2023 12:42 PM [facility]IO OLGUIN CBC Specimen Type: BLOOD No comment entered. Ordering Provider: BONNIE VELASQUEZ Report Released Date/Time: Sep 02, 2023 08:14 AM Reporting Lab: [facility] [phone] Performing Lab: [facility] [address] WBC 9.18 10*3/uL 4.0-11.0 RBC 4.28 10*6/uL [...] Sep 02, 2023 08:14 AM Reporting Lab: [facility] [address] Performing Lab: [facility] [address] CREATININE 0.8 mg/dL 0.7-1.2 UREA NITROGEN 11 [...] Sep 10, 2023 12:28 PM Reporting Lab: [facility] [address] Performing Lab: [facility] [address] CHOLESTEROL 124 mg/dL <199 .HDL 39 mg/dL L >40 LDL CALCULATION 55 mg/dL <99 VLDL CALCULATION 30 mg/dL H <29 NON HDL CHOLESTEROL 85 mg/dL <129 TRIG(NON FASTING) 152 mg/dL H <149 Social History: Smoking Status (Most current) and Tobacco Use (All prior to encounter date) This section includes the most current, and the historical, smoking and tobacco- related health factors from the [place] facility where the Encounter took place. Current Smoking Status This section includes the most current smoking, or tobacco-related health factor, from the [place] facility where the Encounter took place. Date/Time Current Smoking Status Comment Facil ity Aug 11, 2017 01:01 PM INPT NO TOBACCO USE IN LAST 30 D AYS [facility] Advance Directives: All historical and current Section Date Range: From patient's date of to the date document was created. This section includes ALL of a patient's completed or amended [place] Advance and Rescinded Directives. The entries below indicate that a directive exists for the patient, but an actual copy is not included with this document. The data comes from all [place] facilities. Date Advance Directives Provider Source Aug 11, 2017 CLINICAL WARNING [facility]OW[facility]
--- OUTSIDE RECORDS SUMMARY | 2023-11-15 16:19 | XMS_ITS | Encounter Summary ---
Author Name [facility] [place] Address [address] [place] [address] Care Team Providers Care Communication Analyst Name Role Phone KARY VELASQUEZ Primary Care [...] PART A Apr 19, 2015 PART A [id number] 26A [phone] TENNILLE MORRIS PATIENT Selected Encounter This section includes the information on record at [place] for the Encounter. Date/Time Encounter Type Encounter Description Reason Pro vider Source Sep 11, 2023 09:27 AM Outpatient Encounter PRIMARY CARE/MEDICINE IHE Encounter Template Text not used by [place] Plan of Treatment: Future Appointments (+ 6 [...] 09, 2023 09:00 [facility] Lab Results: +/- 30 days of the [...] Sep 02, 2023 08:14 AM Reporting Lab: [facility] [id number] Performing Lab: [facility] [address] OCCULT BLOOD (FIT) #1 OF 1 Negative Negative Sep 10, 2023 01:05 PM [facility] URINALYSIS Specimen Type: URINE No comment entered. Ordering Provider: BONNIE VELASQUEZ Report Released Date/Time: Sep 10, 2023 12:28 PM Reporting Lab: [facility] [address] Performing Lab: [facility] [address] URINE COLOR COLORLESS SPECIFIC GRAVITY 1.005 1.003-1.035 [...] Sep 02, 2023 08:14 AM Reporting Lab: [facility] [address] Performing Lab: [facility] [address] CREATININE,UR RANDOM 27.8 mg/dL L 58.0-161.0 ALB/CREAT [...] Sep 02, 2023 08:14 AM Reporting Lab: [facility] [address] Performing Lab: [facility] [address] HEMOGLOBIN A1C 6.7 H 4.0-6.0 Sep 10, 2023 12:42 PM [facility] CBC Specimen Type: BLOOD No comment entered. Ordering Provider: BONNIE VELASQUEZ Report Released Date/Time: Sep 02, 2023 08:14 AM Reporting Lab: [facility] [address] Performing Lab: [facility] [address] WBC 9.18 10*3/uL 4.0-11.0 RBC 4.28 10*6/uL [...] Sep 02, 2023 08:14 AM Reporting Lab: [facility] [address] Performing Lab: [facility] [address] CREATININE 0.8 mg/dL 0.7-1.2 UREA NITROGEN 11 [...] Sep 10, 2023 12:28 PM Reporting Lab: [facility] [address] Performing Lab: [facility] [address] CHOLESTEROL 124 mg/dL <199 .HDL 39 mg/dL [...] TOBACCO USE IN LAST [address] [facility] Advance Directives: All historical and current [...] Encounter. Date/Time Encounter Note(s) Provider Source Sep 11, 2023 09:27 AM LETTERS: LOCAL TITLE: FOLLOW UP RESULTS LETTER STANDARD TITLE: LETTERS DATE OF NOTE: SEP 11, 2023@09:27 ENTRY DATE: SEP 11, 2023@09:28:03 AUTHOR: YOANA OLGUIN EXP COSIGNER: URGENCY: STATUS: COMPLETED [facility] [address] [place] [address] Aug TENNILLE PEOPLES ALEXANDRA [address] [facility] [address] Dear [place]: I am writing to inform you are due for a Diabetic Eye Exam. The recommendations is to have a yearly eye exam with diabetes. With diabetes you can get Diabetic retinopathy. According to [employer] web site. Some education on people with diabetes. Diabetic retinopathy (jxo-fy-YQW-ik shj-tt-TSI-uh-thee) is a diabetes complication that affects eyes. It's caused by damage to the blood vessels of the light-sensitive tissue at the back of the eye (retina).At first, diabetic retinopathy might cause no symptoms or only mild vision problems. But it can lead to blindness. This condition can develop in anyone who has type 1 or type 2 diabetes. The longer you have diabetes and the less controlled your blood sugar is, the more likely you are to develop diabetic retinopathy. If you had an exam within the last year done privately. Please have them fax us the results to .If you have not had examination , call [facility] Eye clinic at [phone] and tell them you like a Community Care consult to go outside [facility] or make appointment up at the [facility] in [facility]. Thanks: Teleretinal Imaging-Diabetic Eye Screen Yoana Duron [facility] [address] [facility] [address] :Fax YOANA OLGUIN LPN LICENSED PRACTICAL NURSE [facility]
--- OUTSIDE RECORDS SUMMARY | 2023-11-15 16:20 | XMS_ITS | Encounter Summary ---
Author Name [facility] [place] Address [address] [place] [address] Care Team Providers Care Django Developer Name Role Phone KARY VELASQUEZ Primary Care [...] PART A Apr 19, 2015 PART A [id number] 26A [phone] TENNILLE MORRIS PATIENT Selected Encounter This section includes the information on record at [place] for the Encounter. Date/Time Encounter Type Encounter Description Reason Pro vider Source September 30, 2023 10:21 AM Outpatient Encounter COMMUNITY CARE CONSULT IHE Encounter Template Text not used by [place] [...] 2023 09:00 AM AM[facility]ORY - NONE [place] [facility] Lab Results: +/- 30 days of [...] Sep 02, 2023 08:14 AM Reporting Lab: [facility] [phone] Performing Lab: [facility] [address] OCCULT BLOOD (FIT) #1 OF 1 Negative Negative Sep 10, 2023 01:05 PM [facility] URINALYSIS Specimen Type: URINE No comment entered. Ordering Provider: BONNIE VELASQUEZ Report Released Date/Time: Sep 10, 2023 12:28 PM Reporting Lab: [facility] [address] Performing Lab: [facility] [address] URINE COLOR COLORLESS SPECIFIC GRAVITY 1.005 1.003-1.035 [...] Sep 02, 2023 08:14 AM Reporting Lab: [facility] [address] Performing Lab: [facility] [address] CREATININE,UR RANDOM 27.8 mg/dL L 58.0-161.0 ALB/CREAT [...] Sep 02, 2023 08:14 AM Reporting Lab: [facility] [address] Performing Lab: [facility] [address] HEMOGLOBIN A1C 6.7 H 4.0-6.0 Sep 10, 2023 12:42 PM [facility] CBC Specimen Type: BLOOD No comment entered. Ordering Provider: BONNIE VELASQUEZ Report Released Date/Time: Sep 02, 2023 08:14 AM Reporting Lab: [facility] [address] Performing Lab: [facility] [address] WBC 9.18 10*3/uL 4.0-11.0 RBC 4.28 10*6/uL [...] Sep 02, 2023 08:14 AM Reporting Lab: [facility] [address] Performing Lab: [facility] [address] CREATININE 0.8 mg/dL 0.7-1.2 UREA NITROGEN 11 [...] Sep 10, 2023 12:28 PM Reporting Lab: [facility] [address] Performing Lab: [facility] [address] CHOLESTEROL 124 mg/dL <199 .HDL 39 mg/dL L >40 LDL CALCULATION 55 mg/dL <99 VLDL CALCULATION 30 mg/dL H <29 NON HDL CHOLESTEROL 85 mg/dL <129 TRIG(NON FASTING) 152 mg/dL H <149 Social History: Smoking Status (Most current) and Tobacco Use (All prior to encounter date) This section includes the most current, and the historical, smoking and tobacco- related health factors from the [place] facility where the Encounter took place. Current Smoking Status This section includes the most current smoking, or tobacco-related health factor, from the [place] facility where the Encounter took place. Date/Time Current Smoking Status Comment Facil esmer Aug 11, 2017 01:01 PM INPT NO TOBACCO USE IN LAST 30 D AYS [facility] Advance Directives: All historical and current Section Date Range: From patient's date of to the date document was created. This section includes ALL of a patient's completed or amended [place] Advance and Rescinded Directives. The entries below indicate that a directive exists for the patient, but an actual copy is not included with this document. The data comes from all [place] facilities. Date Advance Directives Provider Source Aug 11, 2017 CLINICAL WARNING LEESA LOWE [facility] Encounter Notes: All associated encounter notes This section contains the clinical notes associated to the Encounter. Date/Time Encounter Note(s) Provider Source September 30, 2023 10:21 AM NONVA NOTE: LOCAL TITLE: COMMUNITY CARE APPOINTMENT LETTER (AUTOPRINT) STANDARD TITLE: NONVA NOTE DATE OF NOTE: SEPTEMBER 30, 2023@10:21 ENTRY DATE: SEPTEMBER 30, 2023@10:21:38 AUTHOR: LONA RUBY COSIGNER: URGENCY: STATUS: COMPLETED September TENNILLE MORRIS [address] [place], [place] [address] Dear TENNILLE MORRIS, Your VA provider has referred you to a provider within the community for care. Your medical care for Ultrasound has been authorized with the community care provider listed below. DO NOT REPORT TO THE [place] [facility] Provider info: An appointment has been scheduled for you on: September@09:00 Office name, address, phone number: [address] [address] PH: [phone] Please arrive 15 minutes early and do not eat 8 hours prior to this appointment. Authorization number: [id number] Referral issue date: Aug Expiration date: Nov (subject to change based on first appointment) *Please bring this appt letter containing your authorization information to your appointment* If you are unable to keep this appointment or the appointment is no longer needed, please contact the community provider above for notification/rescheduling and then call the [facility] Office of Community Care at [phone] during the hours of 8:30AM - 3:00PM. If you need additional care/services not mentioned above or your authorization has and additional care is needed, please contact your primary care provider for a new referral. To review all care/service(s) approved under your referral, please go to the following link: [employer] [facility]([email or web address]) Co-Payments: If you are required to pay a VA co-payment, you will be billed by the [place] for each authorized visit that you attend. However, you are NOT REQUIRED to make co-payments to a community provider. Thank you for the opportunity to serve you. Sincerely, [place] [facility] ([facility]) /anahi/ LONA RUBY Yarder Operator Signed: 09/30/2023 10:23 LONA RUBY [facility]
--- OUTSIDE RECORDS SUMMARY | 2023-11-15 16:20 | XMS_ITS | Encounter Summary ---
Author Name [facility] ([place]) Address [address] [place] [address] Care Team Providers Care Broiler Manager Name Role Phone KARY VELASQUEZ Primary Care [...] PART A Apr 19, 2015 PART A [id number] [id number] [phone] TENNILLE MORRIS PATIENT Selected Encounter This section includes the information on record at [place] for the Encounter. Date/Time Encounter Type Encounter Description Reason Pro vider Source Oct 19, 2023 12:30 PM Outpatient Encounter PRIMARY CARE/MEDICINE IHE Encounter Template Text not used by [place] Lab Results: +/- 30 days of the encounter This section includes the Chemistry and Hematology Lab Results on record with [place] for the patient. Radiology Reports and Pathology [...] Type: FECES No comment entered. Ordering Provider: NSUBUGA,ANNITA NE N Report Released Date/Time: Sep 02, 2023 08:14 AM Reporting Lab: [facility] [id number] Performing Lab: [facility] [id number] OCCULT BLOOD (FIT) #1 OF 1 Negative Negative Social History: Smoking Status (Most current) and Tobacco Use (All prior to encounter date) This section includes the most current, and the historical, smoking and tobacco- related health factors from the [place] facility where the Encounter took place. Current Smoking Status This section includes the most current smoking, or tobacco-related health factor, from the [place] facility where the Encounter took place. Date/Time Current Smoking Status Comment Facil ity Aug 11, 2017 01:01 PM INPT NO TOBACCO USE IN LAST 30 D AYS [facility] Advance Directives: All historical and current Section Date Range: From patient's date of to the date document was created. This section includes ALL of a patient's completed or amended [place] Advance and Rescinded Directives. The entries below indicate that a directive exists for the patient, but an actual copy is not included with this document. The data comes from all [place] facilities. Date Advance Directives Provider Source Aug 11, 2017 CLINICAL WARNING LEESA LOWE [facility] Encounter Notes: All associated encounter notes This section contains the clinical notes associated to the Encounter. Date/Time Encounter Note(s) Provider Source Oct 19, 2023 12:30 PM LETTERS: LOCAL TITLE: FOLLOW UP RESULTS LETTER STANDARD TITLE: LETTERS DATE OF NOTE: OCT 19, 2023@12:30 ENTRY DATE: OCT 19, 2023@12:30:37 AUTHOR: KARY VELASQUEZ EXP COSIGNER: URGENCY: STATUS: COMPLETED [facility] [place] [address] Oct TENNILLE MORRIS [address] [facility] [id number] Dear : Abdominal ultrasound done by Karen on 10/09/2023: Impressions: 1. Slight enlargement and fatty infiltration of the liver. No liver lesions or ascites. 2. Small gallbladder polyp. No stones. No obstruction of the bile ducts. 3. 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 The bladder is markedly enlarged. These findings are similar to the renal ultrasound of 08/09/2017. Dictated by Ángel Dempsey MD @ 10/09/2023 10:04:33 AM Comment: - Recommend weight loss, lose five to seven percent of body weight (1 to 2 lb. per week) - Refrain from heavy alcohol >14 drinks per week or >4 drinks on a given day (If taking any) - Keep blood pressure < 130/80 most days of the week If you have further questions or problems, please contact the call center at [phone] to speak with a nurse or leave me a message Sincerely, KARY VELASQUEZ,[place] [facility] EV[facility],KARY DURON OC
--- OUTSIDE RECORDS SUMMARY | 2023-11-15 16:20 | XMS_ITS | Encounter Summary ---
Author Name [facility] ([place]) Address [address] [place] [address] Care Team Providers Care Computational Sciences Professor Name Role Phone KARY VELASQUEZ Primary Care [...] PART A Apr 19, 2015 PART A [id number] [phone] TENNILLE MORRIS PATIENT Selected Encounter This section includes the information on record at [place] for the Encounter. Date/Time Encounter Type Encounter Description Reason Pro vider Source October 09, 2023 12:00 PM Outpatient Encounter PRIMARY CARE/MEDICINE IHE Encounter Template Text not used by [place] Lab Results: +/- 30 days of the encounter This section includes the Chemistry and Hematology Lab Results on record with [place] for the patient. Radiology Reports and Pathology [...] Type: FECES No comment entered. Ordering Provider: NSUBUGA,BONNIE INE N Report Released Date/Time: Sep 02, 2023 08:14 AM Reporting Lab: [facility] [id number] Performing Lab: [facility] [phone] OCCULT BLOOD (FIT) #1 OF 1 Negative Negative Sep 10, 2023 01:05 PM [facility] URINALYSIS Specimen Type: URINE No comment entered. Ordering Provider: BONNIE VELASQUEZ Report Released Date/Time: Sep 10, 2023 12:28 PM Reporting Lab: [facility] [phone] Performing Lab: [facility] [address] URINE COLOR COLORLESS SPECIFIC GRAVITY 1.005 1.003-1.035 [...] Sep 02, 2023 08:14 AM Reporting Lab: [facility] [phone] Performing Lab: [facility] [phone] CREATININE,UR RANDOM 27.8 mg/dL L 58.0-161.0 ALB/CREAT [...] 9.3. Ref: http://www.ngs p.org/CAPdata. asp Ordering Provider: NSUBUGA,BONNIE INE N Report Released Date/Time: Sep 02, 2023 08:14 AM Reporting Lab: [facility] [id number] Performing Lab: [facility] [phone] HEMOGLOBIN A1C 6.7 H 4.0-6.0 Sep 10, 2023 12:42 PM [facility] CBC Specimen Type: BLOOD No comment entered. Ordering Provider: BONNIE VELASQUEZ Report Released Date/Time: Sep 02, 2023 08:14 AM Reporting Lab: [facility] [address] Performing Lab: [facility] [phone] WBC 9.18 10*3/uL 4.0-11.0 RBC 4.28 10*6/uL L 4.6-6.2 HGB 12.9 g/dL L 13.5-17.9 HCT 38.4 L 41-54 MCV 89.7 fL 80-100 MCH 30.1 pg 27-33 MCHC 33.6 g/dL 32.0-37.5 PLT 261 10*3/uL 150-400 MPV 11.0 fL H 7.4-10.4 RDW 13.3 11.5-14.5 Sep 10, 2023 12:42 PM [facility] COMPREHENSIVE METABOLIC PANEL+MG Specimen Type: PLASMA No comment entered. Ordering Provider: BONNIE VELASQUEZ N Report Released Date/Time: Sep 02, 2023 08:14 AM Reporting Lab: [facility] [phone] Performing Lab: [facility] [address] CREATININE 0.8 mg/dL 0.7-1.2 UREA NITROGEN 11 [...] Sep 10, 2023 12:28 PM Reporting Lab: [facility] [phone] Performing Lab: [facility] [address] CHOLESTEROL 124 mg/dL <199 .HDL 39 mg/dL L >40 LDL CALCULATION 55 mg/dL <99 VLDL CALCULATION 30 mg/dL H <29 NON HDL CHOLESTEROL 85 mg/dL <129 TRIG(NON FASTING) 152 mg/dL H <149 Social History: Smoking Status (Most current) and Tobacco Use (All prior to encounter date) This section includes the most current, and the historical, smoking and tobacco- related health factors from the [place] facility where the Encounter took place. Current Smoking Status This section includes the most current smoking, or tobacco-related health factor, from the [place] facility where the Encounter took place. Date/Time Current Smoking Status Comment Facil ity Aug 11, 2017 01:01 PM INPT NO TOBACCO USE IN LAST 30 D S [facility] Advance Directives: All historical and current Section Date Range: From patient's date of to the date document was created. This section includes ALL of a patient's completed or amended [place] Advance and Rescinded Directives. The entries below indicate that a directive exists for the patient, but an actual copy is not included with this document. The data comes from all [place] facilities. Date Advance Directives Provider Source Aug 11, 2017 CLINICAL WARNING LEESA LOWE [facility] Encounter Notes: All associated encounter notes This section contains the clinical notes associated to the Encounter. Date/Time Encounter Note(s) Provider Source October 09, 2023 12:00 PM NONVA CONSULT: LOCAL TITLE: COMMUNITY CARE CONSULT RESULT ULTRASOUND STANDARD TITLE: NONVA CONSULT DATE OF NOTE: OCTOBER 09, 2023@12:00 ENTRY DATE: NOV 08, 2023@08:46 AUTHOR: OLY MALDONADO EXP COSIGNER: URGENCY: STATUS: COMPLETED [facility] - Scanned Document SCANNED DOCUMENT SIGNATURE NOT REQUIRED Electronically Filed: 11/08/2023 by: OLY OBANDO [facility]
--- OUTSIDE RECORDS SUMMARY | 2023-11-15 16:21 | XMS_ITS | Encounter Summary ---
Author Name [facility] Organization [facility] [place] Address [address] [place] [address] Care Team Providers Care Prekindergarten Teacher Name Role Phone KARY VELASQUEZ Primary [...] PART A Apr 19, 2015 PART A [id number] 26A [phone] TENNILLE MORRIS PATIENT Selected Encounter This section includes the information on record at [place] for the Encounter. Date/Time Encounter Type Encounter Description Reason Provider Source Nov 15, 2023 02:56 PM Outpatient Encounter TELEPHONE TRIAGE MARIA STOCKTON [facility] Encounter Template Text not used by [place] Social History: Smoking Status (Most current) and Tobacco Use (All prior to encounter date) This section includes the most current, and the historical, smoking and tobacco- related health factors from the [facility] facility where the Encounter took place. Current Smoking Status This section includes the most current smoking, or tobacco-related health factor, from the [place] facility where the Encounter took place. Date/Time Current Smoking Status Anil lyman Aug 11, 2017 01:01 PM INPT NO TOBACCO USE IN LAST 30 D S [facility] Advance Directives: All historical and current Section Date Range: From patient's date of to the date document was created. This section includes ALL of a patient's completed or amended [place] Advance and Rescinded Directives. The entries below indicate that a directive exists for the patient, but an actual copy is not included with this document. The data comes from all [place] facilities. Date Advance Directives Provider Source Aug 11, 2017 CLINICAL WARNING LEESA LOWE [facility] Encounter Notes: All associated encounter notes This section contains the clinical notes associated to the Encounter. Date/Time Encounter Note(s) Provider Source Nov 15, 2023 02:56 PM RN PROGRESS NOTE: LOCAL TITLE: CCC: CLINICAL TRIAGE STANDARD TITLE: RN PROGRESS NOTE DATE OF NOTE: NOV 15, 2023@14:56:18 ENTRY DATE: NOV 15, 2023@14:56:18 AUTHOR: HARISH STOCKTONIGNER: URGENCY: STATUS: COMPLETED Patient Demographics Patient Name: TENNILLE MORRIS Patient Primary Address: [address] [place] [address] Patient Primary Phone: [phone] Patient : 1950 Patient Age: 73 Call Back Number: [phone] Caller/Recipient Relation to Patient: Self Emergency Contact: ORLANDO MORRIS Triage Summary Conducted triage/discussed symptoms Pain Score: 0 (No Pain) Utilized the Triage Tool: Yes Chief Complaint: Swelling Of The Face System WHEN: Now, 911 Nurse's Recommendation / WHEN: Now System WHERE: Emergency department Nurse's Recommendation / WHERE: ED Other Patient Disposition Patient/Caregiver agrees to plan of care: Yes Nursing Plan and Disposition Referred patient to higher level of care Instructed to go to Emergency Room (ER) Advised of Financial Disclaimer: Patient advised that recommendation for care provided during the call does not constitute an approval or authorization for payment by the [place] or its staff. Patient advised to report a community ED visit to the [facility] Office of Community Care at within 72 hours. Nurse Summary Nurse Summary: PATIENT CONCERN/DURATION/ONSET: [place] c/o swelling in the face cheeks and lips since he woke up this morning. He says this has happened before and usually goes away after a day or so. He has also had an itchy rash on his back for three days. WHAT HAS PATIENT TRIED TO TREAT THE SYMPTOMS: Ibuprofen and Benadryl helped the swelling in the past but not yet today. He has not done anything for the rash. HISTORY/PREVIOUS TREATMENT: Sleep Apnea, Obesity, Hypertension, Diabetes He has had 2-3 similar episodes in the last month. WHAT IS PATIENT GOAL FOR THE CALL: Advice Was Virtual Care Visit considered (TELE or VVC)? Not appropriate at time of call. HORTICULTURAL SPECIALTY GROWER DISPOSITION: Recommended triage is: ED now secondary to swelling in the throat, cheeks, and lips. [place] in agreement. [place] ED report line phone number given. Best contact for is (Verified): [phone] This note was created by a 3 [facility] RN. Please do not alert this nurse by adding as a signer for future communications. Alerts are not monitored by this user, please reach out to [facility] Leadership instead if indicated. Clinical Contact Center Codes Clinic/Location: [address] [facility] RN TXCC Triage Complete Triage Date: 11/15/2023, 02:41 PM Triage Note: Phone Triage 15 Nov 2023 19:39:24 +0000 [facility] Demographics 73 y/o Male Results CC: Swelling Of The Face Software suggested: Now, 911 Software suggested follow-up location: Emergency department Values and Measures Duration of CC: 8 Hours Positive Responses HPI: dysphagia HPI: facial swelling, sudden onset HPI: lip swelling, rapid onset VS: respiratory rate not taken Negative Responses Denies: HPI: difficulty speaking Denies: HPI: facial swelling, periorbital swelling, sudden onset Denies: HPI: throat swelling, rapid onset Denies: HPI: tongue swelling, rapid onset /es/ MAU Tilley, RN Registered Nurse, V23 [place] [facility] Signed: 11/15/2023 14:56 HARISH STOCKTON [facility]
--- OUTSIDE RECORDS SUMMARY | 2023-11-15 16:21 | XMS_ITS | Referral Summary ---
Author Organization [facility] Address [address] [place] [address] Care Team Providers Care Cnc Supervisor Name Role Phone Elsewhere, Pcp Primary Care Provider Unavailabl e Source Comments Patient records contain information from all sites at [facility]. For routine questions regarding patient records, call [phone] during business hours, M-F 8:00 AM - 5:00 PM Central Time. Record requests for emergency care only can be directed to [phone] at any time.[facility] Allergies No known active allergies Medications Medication Sig Dispensed Refills Start Date End Date Status amLODIPine (NORVASC) 10 mg tablet Take 1 tablet by mouth daily. 09/12/[address] tablet Take 1 tablet by mouth daily. 06/29/2014 Active metoprolol tartrate (LOPRESSOR) 50 mg tablet Take 25 mg by mouth 2 (two) times a day. 09/12/2020 Active multivitamin-minerals- lutein (CENTURY MATURE) tablet Take 1 tablet by mouth daily. Active glipiZIDE (GLUCOTROL) 5 mg tablet Take 5 mg by mouth daily. 09/14/2020 Active metFORMIN (GLUCOPHAGE) 1,000 mg tablet Take 1,000 mg by mouth 2 (two) times a day. 09/01/2016 Active benazepriL (LOTENSIN) 20 mg tablet Take 40 mg by mouth. Active Social History Tobacco Use Types Packs/Day Years Used Date Smoking Tobacco: Every Day Cigars Tobacco Cessation:Ready to Q uit: Not Asked; Counseling Given: Not Answered Alcohol Use Standard Drinks/Week Comments Yes 0 (1 standard drink = 0.6 oz pur e alcohol) Nutrition Answer Date Recorded Nutrition: EVOO Fat Source Unknown 05/09 Nutrition: Servings of Fruits/Vegetables per Day Not on file 05/09/2021 Dental Answer Date Recorded Dental: Regular Dentist Unknown 05/09/20 Sex and Gender Information Value Date Recorded Sex Assigned at Not on file Gender Identity Not on file Sexual Orientation Not on file Last Filed Vital Signs Vital Sign Reading Time Taken Comments Blood Pressure 151/87 05/24/2022 2:04 PM DEVELOPMENT ANALYST Pulse 96 05/24/2022 2:04 PM DEVELOPMENT ANALYST Temperature 36.1 ??C (97 ??F) 03/15/2022 12:39 PM CDT Respiratory Rate 18 03/15/2022 12:39 PM CDT Oxygen Saturation 99% 03/15/2022 12:39 PM CDT Inhaled Oxygen Concentration - - Weight 104 kg (230 lb 2.6 oz) 05/24/2022 2:04 PM DEVELOPMENT ANALYST Height 180.3 cm (5' 11) 03/15/2022 12:39 PM CDT Body Mass Index 32.1 03/15/2022 12:39 PM CDT Plan of Treatment Not on file Procedures Procedure Name Priority Date/Time Associated Diagnosis Comments EXTI COMPREHENSIVE METABOLIC PANEL, S/P Routine 07/31/2021 9:05 AM CDT from Last 3 Months or Most Recently Relevant to Health Maintenance Care Teams Cnc Supervisor Relationship Specialty Start Date End Date Elsewhere, Pcp PCP - General Internal Medicine 05/09/21
--- OUTSIDE RECORDS SUMMARY | 2023-11-15 16:21 | XMS_ITS | Clinical Summary ---
Author Organization [facility] Address [address] [place] [address] Care Team Providers Care Site Auditor Name Role Phone Elsewhere, Pcp Primary Care Provider Unavailabl e Source Comments Patient records contain information from all sites at [facility]. For routine questions regarding patient records, call [phone] during business hours, M-F 8:00 AM - 5:00 PM Central Time. Record requests for emergency care only can be directed to [phone] at any time.[facility] Allergies No known active allergies Medications Medication [...] Comments Blood Pressure 151/87 05/24/2022 2:04 PM BUILDING AND GROUNDS SUPERVISOR Pulse 96 05/24/2022 2:04 PM BUILDING AND GROUNDS SUPERVISOR Temperature 36.1 ??C (97 ??F) 03/15/2022 12:39 PM CDT Respiratory Rate 18 03/15/2022 12:39 PM CDT Oxygen Saturation 99% 03/15/2022 12:39 PM CDT Inhaled Oxygen Concentration - - Weight 104 kg (230 lb 2.6 oz) 05/24/2022 2:04 PM BUILDING AND GROUNDS SUPERVISOR Height 180.3 cm (5' 11) 03/15/2022 12:39 PM CDT Body Mass Index 32.1 03/15/2022 12:39 PM CDT Plan of Treatment Health Maintenance Due Date Last Done Comments Abdominal Aortic Aneurysm (A AA) Screen 1950 CT Colonography 1950 Cologuard 1950 Colonoscopy 1950 Colorectal Cancer Screening 1950 FIT 1950 Hepatitis C Screening 1950 Tobacco Cessation counseling 1950 Pneumococcal vaccine (65+ ye ars) (1 of 2 - PCV) 1956 Zoster Vaccines (3 of 3) 05/22/2022 03/27/2022, 07/0 01/2014 Creatinine Level (Kidney Fun ction Test) 07/31/2022 07/31/2021, 05/09/2021 Potassium Level 07/31/2022 07/31/2021, 05/09/2021 Sodium Level 07/31/2022 07/31/2021, 05/09/2021 Office Visit for Blood Press ure Check / Re-check 08/22/2022 05/24/2022 Influenza Vaccine (#1) 2023 02/22/2009, 2008 Depression Screening (Annual PHQ-2) 05/20/2023 Fall Risk Screen (Annual) 05/20/2023 COVID-19 Vaccine (6 - 2022-2 4 season) 2023 03/11/2023, 03/27/2022, 02/23/2021, Additional history exists DTaP,Tdap,and Td Vaccines (3 - Td or Tdap) 05/20/2024 05/20/2014, 12/07/2009, 05/20/2005 Fasting Glucose for Diabetes Screening 07/31/2024 07/31/2021, 05/09/2021 Procedures Procedure Name Priority Date/Time Associated Diagnosis Comments EXTI COMPREHENSIVE METABOLIC PANEL, S/P Routine 07/31/2021 9:05 AM CDT from Last 3 Months or Most Recently Relevant to Health Maintenance Care Teams Site Auditor Relationship Specialty Start Date End Date Elsewhere, Pcp PCP - General Internal Medicine 05/09/21
--- OUTSIDE RECORDS SUMMARY | 2023-11-15 16:21 | XMS_ITS ---
Author Organization [facility] Address [address] [place] [address] Care Team Providers Care Brick Picker Name Role Phone Unavailable Unavailable Unavailable Surgery Details Not on file Complications Check Surgery Details section. Procedure Estimated Blood Loss Check Surgery Details section. Procedure Findings Check Surgery Details section. Procedure Specimens Taken Check Surgery Details section.
--- OUTSIDE RECORDS SUMMARY | 2023-11-15 16:21 | XMS_ITS | Clinical Summary ---
Author Organization [facility] Address [place], [place] [address] Care Team Providers Care [employer] Worker Name Role Phone [facility] Primary Care Provider [phone] Allergies No known active allergies Medications Medication Sig Dispensed Refills Start Date End Date Status metFORMIN (GLUCOPHAGE) 1,000 mg tablet Take 1 tablet by mouth 2 times daily with meals. 0 09/01/2016 Active amLODIPine (NORVASC) 10 mg tabletIndications:hype rtension Take 10 mg by mouth once daily. Active benazepril (LOTENSIN) 20 mg tabletIndications:hype rtension Take 40 mg by mouth once daily. Active aspirin (ECOTRIN) 81 mg enteric coated tablet Take 81 mg by mouth once daily with a meal. Active GLUCOSAM/CHOND/HYALU/C F BORATE (MOVE FREE JOINT HEALTH ORAL) Take 1 tablet by mouth once daily. Active multivitamins-minerals -lutein (CEROVITE SENIOR) tab tablet Take 1 tablet by mouth once daily. Active Active Problems Problem Noted Date Diagnosed Date Diabetes mellitus type 2 in obese 08/09/2017 Atypical pneumonia 08/09/2017 Personal history of colonic polyps 11/22/2014 GOUT 07/24/2006 Obstructive sleep apnea 07/24/2006 Unspecified essential hypertension 06/08/2006 Resolved Problems Problem Noted Date Diagnosed Date Resolved Date HYPERTENSION 04/19/2008 04/19/2008 Encounters Date Type Department Care Team Description 10/09/2023 8:44 AM CDT - 10/09/2023 11:59 PM CDT Hospital Encounter [facility] [address] [facility] [place] [address] Katarina Weber NP Encounter for screening for cardiovascular disorders 10/09/2023 Travel from Last 3 Months Immunizations Name Administration Dates Next Due AMB Influenza, IIV3 (Age >=3 years)(Flu [facility]) 02/22/2009 Td (Age >=7 Years) 01/17/1998 Tdap 12/07/2009 Family History Medical History Relation Name Comments Heart Disease Father CABG 55 Heart Disease Mother CABG 55 Heart Disease Paternal Uncle Relation Name Status Comments Father Mother Paternal Uncle Sister Alive Son Alive Social History Tobacco Use Types Packs/Day Years Used Date Smoking Tobacco: Some Days Smokeless Tobacco: Never Comments:Smokes cigars on oc casion, golfing. Alcohol Use Standard Drinks/Week Comments Yes 0 (1 standard drink = 0.6 oz pur e alcohol) 1-2 beers/day Sex and Gender Information Value Date Recorded Sex Assigned at Not on file Gender Identity Not on file Sexual Orientation Not on file Obstetrics History Last Filed Vital Signs Vital Sign Reading Time Taken Comments Blood Pressure 125/74 08/11/2017 8:00 AM CDT Pulse 83 08/11/2017 8:00 AM CDT Temperature 36.8 ??C (98.2 ??F) 08/11/2017 8:00 AM CD T Respiratory Rate 20 08/11/2017 8:00 AM CDT Oxygen Saturation 91% 08/11/2017 8:05 AM CDT Inhaled Oxygen Concentration - - Weight 107.9 kg (237 lb 12.8 oz) 2017 10:48 PM CDT Height 180.3 cm (5' 11) 08/09/2017 10: 48 PM CDT Body Mass Index 33.17 08/09/2017 10:48 PM CDT Plan of Treatment Health Maintenance Due Date Last Done Comments Depression screening for age 12+ 1962 Hepatitis C screening for ag e 18-79 1968 Zoster (shingles) series for age 50+ (1 of 2) 2000 Pneumococcal series for age 65+ (1 of 1 - PCV) 2015 Lipids for age 45-75 02/15/2016 02/14/2011, 12/07/2009, 09/16/2007, Additional history exists BMI (ht and wt on same day) for age 18+ 09/13/2017 09/13/2016, 09/01/2016 Colonoscopy through age 75 11/23/201911/22, 11/22/2014, 08/22/2006, Additional history exists Tetanus booster 12/08/2019 12/07/2009, 01/17/1998 COVID-19 vaccine series ( season) 2023 03/11/2023, 02/23/2021, 07/01/2020, Additional history exists Influenza for age 65+ 01/19/2024 02/22/2009 Tdap Completed 12/07/2009 Procedures Procedure Name Priority Date/Time Associated Diagnosis Comments US ABDOMEN COMPLETE Routine 10/09/2023 9 :41 AM CDT Encounter for screening for cardiovascular disorders COLONOSCOPY SCREENING Routine 11/22/2014 Special screening for malignant neoplasms, colon LIPID PANEL Routine 02/14/2011 9:17 AM CDT HYPERTENSION from Last 3 Months or Most Recently Relevant to Health Maintenance Results * US ABDOMEN COMPLETE (10/09/2023 9:41 AM CDT) Anatomical Region Laterality Modality Abdomen, LIVER, KIDNEYS, PANCREAS, GALLBLADDER, SPLEEN Ultrasound 10/09/2023 10:0 4 AM CDT Impressions 10/09/2023 10:04 AM CDT 1. Slight enlargement and fatty infiltration of [...] Ángel Dempsey MD @ 10/09/2023 10:04:33 AM (Electronically Signed) Narrative 10/09/2023 10:04 AM CDT For Patients: ??As a result of the 21st Century Cures Act, medical imaging exams and procedure reports are released immediately into your electronic medical record. ??You may view this report before your referring provider. ??If you have questions, please contact your health care provider. INDICATION: Screening for cardiovascular disorders. TECHNIQUE: Ultrasound abdomen complete. Sonographic images of the entire abdomen were obtained using salazar-scale and color Doppler. COMPARISON: Renal ultrasound 08/09/2017. FINDINGS: Liver: Slightly enlarged fatty liver. No masses. No intrahepatic biliary dilatation. No ascites. Gallbladder: 4 mm gallbladder polyp. No stones or sludge. Normal wall thickness. No pericholecystic fluid. Common bile duct: 2 mm. Pancreas: Obscured by bowel gas. Spleen: Normal in size and appearance. Right kidney: 14.9 cm cm. 1.3 cm cyst. Otherwise normal echotexture and cortex. No masses, stones, or hydronephrosis. Left kidney: 16.9 cm cm. Normal echotexture and cortex. No masses or stones. Dilation of the intrarenal collecting system and pelvis consistent with chronic UPJ and unchanged from the study of 08/11/2017. Vasculature: Proximal abdominal aorta and IVC are normal in caliber. Procedure Note Wiley Dempsey MD - 10/09/2023 For Patients: As a result of the Cures Act, medical imagingexams and procedure reports are released immediately into your electronicmedical record. You may view this report before your referring provider.If you have questions, please contact your health care provider. INDICATION: Screening for cardiovascular disorders. TECHNIQUE: Ultrasound abdomen complete. Sonographic images of the entire abdomen wereobtained using salazar-scale and color Doppler. COMPARISON: Renal ultrasound 08/09/2017. FINDINGS: Liver: Slightly enlarged fatty liver. No masses. No intrahepatic biliarydilatation. No ascites. Gallbladder: 4 mm gallbladder polyp. No stones or sludge. Normal wallthickness. No pericholecystic fluid. Common bile duct: 2 mm. Pancreas: Obscured by bowel gas. Spleen: Normal in size and appearance. Right kidney: 14.9 cm cm. 1.3 cm cyst. Otherwise normal echotexture andcortex. No masses, stones, or hydronephrosis. Left kidney: 16.9 cm cm. Normal echotexture and cortex. No masses orstones. Dilation of the intrarenal collecting system and pelvis consistentwith chronic UPJ and unchanged from the study of 08/11/2017. Vasculature: Proximal abdominal aorta and IVC are normal in caliber. IMPRESSION: 1. Slight enlargement and fatty infiltration of the liver. No liverlesions or ascites. 2. Small gallbladder polyp. No stones. No obstruction of the bile ducts. 3. Chronic dilation of the left intrarenal collecting system and renalpelvis, chronic UPJ versus hydronephrosis. The bladder is markedlyenlarged. These findings are similar to the renal ultrasound of08/09/2017. Dictated by Ángel Dempsey MD @ 10/09/2023 10:04:33 AM (Electronically Signed) Katarina Weber NP US * COLONOSCOPY SCREENING (11/22/2014) Osman Miller MD GI PROCEDURE ORD * (ABNORMAL) LIPID PANEL (02/14/2011 9:17 AM CDT) CHOLESTEROL,TOTAL 178 110 - 199 mg/dL [facility] TRIGLYCERIDES 218(H) <150 mg/dL [facility] HDL CHOLESTEROL 39(L) >40 mg/dL [facility] CHOL/HDL RATIO 4.56(H) <4.51 [facility] LDL CHOLESTEROL 95 <131 mg/dL [facility] PATIENT STATUS Fasting [facility] Blood specimen (specimen) BLOOD SPECIMEN / Unknown 02/14/2011 9:17 AM CDT 02/14/2011 9:08 AM CDT Shayne Kim MD CHEMISTRY [facility] [address] [place] [id number] from Last 3 Months or Most Recently Relevant to Health Maintenance Advance Directives * Full Code (Latest Code Status on File) Date Activated Date Inactivated Comments 08/09/2017 11:06 PM 08/11/2017 1:34 PM Question Answer Comments Code Status Discussion: Not Discussed Care Teams [employer] Worker Relationship Specialty Start Date End Date [facility] [place] [id number] PCP - General 08/09/17
== END 2023-11-15 16:17 | disposition home or self-care (01) ==
LOC: ED 16:16
PROVIDERS: Emergency Provider Family Medicine
DX: T78.3XXA Angioneurotic edema, initial encounter (principal)
CPT/HCPCS: 99283

== ENCOUNTER 2025-02-12 17:45 | Inpatient (IN) | payer OTHER, SELFPAY ==
[2025-02-12] VITALS (19 sets, daily range): BP systolic 138–171; BP diastolic 100–111; PULSE 89–120; RESP 20–25; TEMP 36.7–36.9; O2SAT 87–94; BMI 34.9; BMI 36.4; BMI 36.5
--- OUTSIDE RECORDS SUMMARY | 2025-02-12 17:47 | XMS_ITS | Clinical Summary ---
Author Organization [facility] Address [address] [place] [id number] Care Team Providers Care Developmental Psychologist Name Role Phone [facility] Provider [phone] Allergies No known active allergies Medications metFORMIN (GLUCOPHAGE) 1,000 mg tablet Take 1 tablet by mouth 2 times daily with meals. 0 09/01/2016 Active amLODIPine (NORVASC) 10 mg tabletIndication s:hypertension Take 10 mg by mouth once daily. Active benazepril (LOTENSIN) 20 mg tabletIndication s:hypertension Take 40 mg by mouth once daily. Active aspirin (ECOTRIN) 81 mg enteric coated tablet Take 81 mg by mouth once daily with a meal. Active GLUCOSAM/CHOND/H YALU/CF BORATE (MOVE FREE JOINT HEALTH ORAL) Take 1 tablet by mouth once daily. Active multivitamins-mi nerals-lutein (CEROVITE SENIOR) tab tablet Take 1 tablet by mouth once daily. 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 Gender Identity Not on file Sexual Orientation Not on file Occupation Industry Job Start Date Job End Date Not on file Not on file Not on file Not on file Obstetrics History Last Filed Vital Signs Vital Sign Reading Time Taken Comments Blood Pressure 125/74 08/11/2017 8:00 AM CDT Pulse 83 08/11/2017 8:00 AM CDT Temperature 36.8 C (98.2 F) 08/11/2017 8:00 AM CDT Respiratory Rate 20 08/11/2017 8:00 AM CDT [...] age 12+ 1962 Hepatitis C screening for age 18-79 1968 Pneumococcal series for age 50+ (1 of 2 - PCV) 1969 Zoster (shingles) series for age 50+ (1 of 2) 2000 Lipids for age 45-75 02/15/2016 02/14/2011, 12/07/2009, 09/16/2007, Additional history exists BMI (ht and wt on same day) for age 18+ 09/13/2017 09/13/2016, 09/01/2016 Colonoscopy through age 75 11/23/201911/22, 11/22/2014, 08/22/2006, Additional history exists Tetanus booster 12/08/2019 12/07/2009, 01/17/1998 COVID-19 vaccine series (2024- season) 2025 03/11/2023, 03/27/2022, 02/23/2021, Additional history exists Influenza Vaccine (#1) 2025 02/22/2009 RSV vaccine for adults or (1 - 1-dose 75+ series) 2025 Hepatitis B series for 19+ Aged Out N o longer eligible based on patient's age to complete this topic Procedures Procedure Name Priority Date/Time Associated Diagnosis Comments COLONOSCOPY SCREENING Routine 11/22/2014 Special screening for malignant neoplasms, colon LIPID PANEL Routine 02/14/2011 9:17 AM CDT HYPERTENSION from Last 3 Months or Most Recently Relevant to Health Maintenance Results * COLONOSCOPY SCREENING (11/22/2014) Osman Miller MD GI PROCEDURE ORD Final Re sult * (ABNORMAL) LIPID PANEL (02/14/2011 9:17 AM CDT) CHOLESTEROL,TOTAL 178 110 - 199 mg/dL [facility] TRIGLYCERIDES 218(H) <150 mg/dL [facility] HDL CHOLESTEROL 39(L) >40 mg/dL [facility] CHOL/HDL RATIO 4.56(H) <4.51 [facility] LDL CHOLESTEROL 95 <131 mg/dL [facility] PATIENT STATUS Fasting [facility] Blood specimen (specimen) BLOOD SPECIMEN / Unknown 02/14/2011 9:17 AM CDT 02/14/2011 9:08 AM CDT Shayne Kim MD CHEMISTRY Final Re sult [facility] [address] [place] [id number] from Last 3 Months or Most Recently Relevant to Health Maintenance Insurance [facility] [place] [id number] MEDICARE PART A HB ONLY [facility] Advance Directives * Full Code (Latest Code Status on File) Date Activated Date Inactivated Comments 08/09/2017 11:06 PM 08/11/2017 1:34 PM Question Answer Comments Code Status Discussion: Not Discussed Care Teams Developmental Psychologist Relationship Specialty Start Date End Date [facility] [place] [id number] PCP - General 08/09/17
--- NOTE | 2025-02-12 18:08 | ED.SOB ---
HPI - SOB/Dyspnea General Time Seen by Provider: 18:08 Date Seen: 02/12/25 Chief Complaint: Shortness of Breath/Dyspnea Stated Complaint: Diarrhea, short of breath Time Seen by Provider: 02/12/25 18:07 Source: patient, RN notes reviewed and old records reviewed Mode of arrival: ambulatory Limitations: no limitations History of Present Illness HPI Narrative: Shayne is a very pleasant 74-year-old gentleman with a history of type 2 diabetes, history of hyponatremia, history of diabetes hot, history of gout who comes to the emergency room with his daughter for evaluation regarding increasing shortness of breath. Shayne notes that about 2 weeks ago he started experiencing a gouty flare in his left hand. He has been on ibuprofen since that time. He started experiencing constipation with that and took some milk of magnesia so today has diarrhea. Unfortunately during the past 2 weeks he has also had increasing lower extremity edema and now shortness of breath. He denies any chest pain. Shortness of breath seems to be more related to activity. No recent fever or chills. Does have a cough. Does have a history of sleep apnea and uses a CPAP at night. Patient has a history of atrial fibrillation with an ablation done 5 years ago. Does agree he is on a blood thinner but is unsure with that medication may be. Also requesting evaluation of what the large growth on his left elbow might be. Patient states that 3 years ago he developed cellulitis in his right toe which spread to his ankle in this leg which required hospitalization. Since that time he has had chronically edematous right ankle but now both legs being edematous is unusual. Related Data Home Medications ?Medication ?Instructions ?Recorded ?Confirmed amlodipine 10 mg tablet 10 mg PO DAILY 01/11/23 11/15/23 atorvastatin 20 mg tablet 20 mg PO QHS 01/11/23 11/15/23 glipizide 10 mg tablet 10 mg PO BID 01/11/23 11/15/23 metformin 1,000 mg tablet 1,000 mg PO BIDWMEAL 01/11/23 11/15/23 metoprolol tartrate 100 mg tablet 100 mg PO BID 01/11/23 11/15/23 Previous Rx's ?Medication ?Instructions ?Recorded acetaminophen 325 mg tablet 650 - 975 mg (2 - 3 x 325 mg) PO 01/14/23 Q6H PRN 1 day #100 tabs amoxicillin 875 mg-potassium 1 tab PO BID #14 tabs 01/14/23 clavulanate 125 mg tablet benazepril 20 mg tablet 40 mg (2 x 20 mg) PO DAILY #30 tabs 01/14/23 omeprazole 20 mg capsule,delayed 40 mg (2 x 20 mg) PO DAILY@0700 01/14/23 release #30 caps tramadol 50 mg tablet 50 - 100 mg (1 - 2 x 50 mg) PO Q6H 01/14/23 PRN 14 days #20 tabs Allergies Allergy/AdvReac Type Severity Reaction Status Date / Time MOISÉS Inhibitors Allergy Severe angioedema Verified 02/12/25 20:22 Review of Systems Status of ROS: Reports: 10 or more systems reviewed and unremarkable except as noted in History and below Const: Denies: fever, chills or fatigue Eyes: Denies: change in vision ENMT: Denies: throat pain, neck pain or nasal congestion Cardio: Reports: edema, swelling of feet/ankles and shortness of breath with exertion; Denies: chest pain or palpitations Resp: Reports: shortness of breath and cough GI: Reports: diarrhea and constipation; Denies: abdominal pain, nausea or vomiting : Denies: painful urination Musculo: Denies: back pain, neck pain, extremity pain or extremity swelling Integ/Breast: Reports: redness (Left hand) Neuro: Denies: headache Endo: Denies: fatigue [facility] Medical History (Updated 02/12/25 @ 21:26 by Nora Estrada MD) Morbid obesity ?E66.01 - Morbid (severe) obesity due to excess calories (ICD-10) DONTA on CPAP ?G47.33 - Obstructive sleep apnea (adult) (pediatric) (ICD-10) Type 2 diabetes mellitus ?E11.9 - Type 2 diabetes mellitus without complications (ICD-10) Atrial fibrillation ?I48.91 - Unspecified atrial fibrillation (ICD-10) B12 deficiency ?E53.8 - Deficiency of other specified B group vitamins (ICD-10) Lumbosacral radiculopathy at L5 ?M54.17 - Radiculopathy, lumbosacral region (ICD-10) Spinal stenosis ?M48.00 - Spinal stenosis, site unspecified (ICD-10) Surgical History Status post ablation of atrial fibrillation ?Z98.890 - Other specified postprocedural states (ICD-10) ?Z86.79 - Personal history of other diseases of the circulatory system (ICD-10) Social History Narrative: Lives with Veena (would be medical decision maker, if needed) of 37 years in [place]. Shayne is Veena's primary caregiver. They have 3 adult children. Previously worked for [employer]. Occasional cigar smoker. Drinks daily for most of the year (typically takes May off). No history of withdrawal. What is your current living situation?: I presently have a place to live Problems where you live: no known problems Problems where you live details: NA In the past 12 months, utilities in danger of being shut off: no In past 12 months, lack of transportation kept you from medical appts, meetings, work, or getting things needed for daily living: no In the past 12 mos, have been you worried that your food would run out before you had money to buy more?: never true In the past 12 mos, the food you bought just didn't last and you didn't have money to buy more?: never true Highest level of school completed/degree received: 12th grade, no diploma Smoking Status: Light tobacco smoker What tobacco products do you use: cigars Nicotine containing products detail: Smokes cigars on occasion Second hand tobacco smoke exposure: Yes How often do you have a drink containing alcohol: 4 or more times a week Alcohol type: beer How many standard drinks containing alcohol do you have on a typical day: 1 or 2 How often do you have six or more drinks on one occasion: Never AUDIT-C Alcohol total score: 4 Non-prescribed substance use: denies use Caffeine: Yes How often does anyone, including family, friends and others, physically hurt you: never How often does anyone, including family, friends and others, insult or talk down to you: never How often does anyone, including family, friends and others, threaten you with harm: never How often does anyone, including family, friends and others, scream or curse at you: never Gender Identity: male service: Yes Exam Narrative: Exam Narrative: Alert and oriented. No acute distress. External ears eyes nose clear. Heart with a tachycardic rate normal rhythm. Lungs are with decreased breath sounds in the bases but no wheezing. I do not hear to patient cough while he is in the room. Abdomen is obese soft nontender. Lower extremities with 2 to 3+ edema. No weeping noted. Calves without tenderness. Moving all extremities. Left elbow is mobile. Nontender. There is a large mass at the olecranon firm but mobile. Nonfluctuant. Bandera size mass. Const: Vital Signs, click to edit/add: Vital Signs - 24 hr 02/12/25 18:02 02/12/25 18:19 02/12/25 18:30 Temperature 98.5 F Pulse Rate 120 H 108 H Pulse Rate [Pulse Oximeter] 104 H Respiratory Rate 20 25 H Blood Pressure Blood Pressure [Le ft Upper Arm] 167/101 H Pulse Oximetry 92 90 87 L Oxygen Delivery Me thod Room Air Oxygen Flow Rate 02/12/25 18:45 02/12/25 19:15 02/12/25 19:30 Temperature Pulse Rate 97 111 H 104 H Pulse Rate [Pulse Oximeter] Respiratory Rate Blood Pressure Blood Pressure [Le ft Upper Arm] Pulse Oximetry 89 87 L 92 Oxygen Delivery Me thod Nasal Cannula Oxygen Flow Rate 4 02/12/25 19:32 02/12/25 19:45 02/12/25 20:00 Temperature Pulse Rate 112 H 99 101 H Pulse Rate [Pulse Oximeter] Respiratory Rate Blood Pressure 171/111 H Blood Pressure [Le ft Upper Arm] Pulse Oximetry 94 93 Oxygen Delivery Me thod Nasal Cannula Nasal Cannula Nasal Cannula Oxygen Flow Rate 4 4 4 02/12/25 20:02 02/12/25 20:15 02/12/25 20:30 Temperature Pulse Rate 92 100 100 Pulse Rate [Pulse Oximeter] Respiratory Rate Blood Pressure 138/100 H Blood Pressure [Le ft Upper Arm] Pulse Oximetry 92 93 94 Oxygen Delivery Me thod Nasal Cannula Nasal Cannula Nasal Cannula Oxygen Flow Rate 4 4 4 02/12/25 20:32 02/12/25 20:33 02/12/25 21:00 Temperature Pulse Rate 105 H 103 H 113 H Pulse Rate [Pulse Oximeter] Respiratory Rate Blood Pressure 146/109 H Blood Pressure [Le ft Upper Arm] Pulse Oximetry 94 93 92 Oxygen Delivery Me thod Nasal Cannula Nasal Cannula Nasal Cannula Oxygen Flow Rate 4 4 4 Documenting provider has reviewed patient's vital signs: yes Course Course ED Course: Differential diagnosis includes but is not limited to acute renal failure, congestive heart failure, acute coronary event, electrolyte abnormality, pneumonia, COVID. Patient will have triple viral swab, blood work to include CBC, comprehensive panel, CRP, troponin, proBNP and urinalysis. Will also add x-ray of the left elbow as well as chest x-ray. Patient will be placed on monitoring specialist with continued oximetry. I have concerns regarding possibility of acute renal injury secondary to ibuprofen use for the gout over the past 2 weeks. Additionally with history of hypertension and AFib this could represent congestive heart failure. Even though patient had ablation suspect atrial fibrillation. Will need to rule out underlying cardiac injury with troponin. He is requiring oxygen at this time. Will plan on Lasix administration for diuresis. Oxygen levels fluctuate between 87 and 91% with shortness of breath. Will add oxygen. radiation monitor did show brief episode of heart rate in the 180s now returned to 110. EKG will be added to orders. Given past history of chronic right lower extremity swelling will also have them do bilateral lower extremity Dopplers to rule out possibility DVT. Reevaluation(s) Reevaluation #1: Patient notes improvement of respirations with oxygen. O2 sats now to 93%. Lasix 40 mg IV given as creatinine is 0.9. There does not appear to be any acute renal injury with the ibuprofen use. Thus this appears to be new onset congestive heart failure complicated by hypoxia and atrial fibrillation. Note I see that he his medication list is incorrect. Fortunately patient does not know his meds but we are awaiting a family member who will bring all of his meds in along with his CPAP as I do suspect this gentleman will need to be admitted to the hospital. I do note previous notes with history of angioedema secondary to MOISÉS-inhibitor. I have added this as an allergy to his chart. Vital Signs Vital signs: Initial Vital Signs Temperature 98.5 F 02/12/25 18:02 Temperature Source Temporal Artery Scan 02/12/25 18:02 Pulse Rate 104 H 02/12/25 18:02 Respiratory Rate 20 02/12/25 18:02 Blood Pressure 167/101 H 02/12/25 18:02 Blood Pressure Mean 123 H 02/12/25 18:02 Blood Pressure Position Sitting 02/12/25 18:02 Pulse Oximetry 92 02/12/25 18:02 Oxygen Delivery Method Room Air 02/12/25 18:02 Vital Signs Temperature 98.5 F 02/12/25 18:02 Pulse Rate 104 H 02/12/25 18:02 Respiratory Rate 20 02/12/25 18:02 Blood Pressure 167/101 H 02/12/25 18:02 Pulse Oximetry 92 02/12/25 18:02 Oxygen Delivery Method Room Air 02/12/25 18:02 Temperature 98.0 F 02/12/25 21:09 Pulse Rate 93 02/12/25 21:09 Respiratory Rate 111 H 02/12/25 21:09 Blood Pressure 165/110 H 02/12/25 21:09 Pulse Oximetry 94 02/12/25 21:09 Oxygen Delivery Method Nasal Cannula 02/12/25 21:09 Oxygen Flow Rate 4 02/12/25 21:09 Medications Administered Medications: Discontinued Medications Generic Name Dose Route Start Last Admin Trade Name Freq PRN Reason Stop Dose Admin Apixaban 5 mg 02/12/25 20:26 02/12/25 20:56 Apixaban 5 Mg Tablet PO 02/12/25 20:27 5 mg ONCE ONE Administration Furosemide 40 mg 02/12/25 19:14 02/12/25 19:24 Furosemide 10 Mg/Ml Inj IVP 02/12/25 19:15 40 mg ONCE ONE Administration MDM - SOB/Dyspnea MDM Narrative Medical decision making narrative: 1. New onset congestive heart failure-possibly part of this is ibuprofen use for gout in his left hand over the past 2 weeks. He also has risk factors for development of heart failure including hypertension and is now in atrial fibrillation. Patient was placed on oxygen with symptomatic improvement and O2 sats went from 87% to 93%. The patient was, given Lasix 40 mg IV and is now starting to urinate. Potassium at this time is 4.7 and sodium 138. Plan on echocardiogram. A EKG does not show any evidence of cardiac ischemia or strain. Troponin is negative. 2. Hypoxia with respiratory failure -oxygen supplementation improved patient is symptomatic coli and O2 sats now at 93%. Will need to continue this treatment and reassess as he diuresis. No evidence of underlying pneumonia. . 3. History of gout-his uric acid elevated at 9.3. Has been dealing with pain in his left 2nd MCP. There is mild erythema but there is no significant and has a warmth at this time. Likely needs to change medications but at this time will await arrival of home meds so that we know what he has been taking. No complaints of pain at this time. 4. Fluid retention/lower extremity edema-no evidence of DVT on Doppler studies. Expect improvement as patient diuresis. 5. Atrial fibrillation with RVR-according to family had been on metoprolol for rate control. History of a cardiac ablation 5 years ago. Have started Eliquis 5 mg p.o. this evening. 6. Hypertension-expect improvement has patient diuresis. 7. Leukocytosis-patient has tested negative for COVID influenza and RSV. No evidence of pneumonia on chest x-ray. I suspect this is likely demargination from tachycardia and hypoxia. No evidence of infection at this time. 8. Disposition-inpatient admission under the care of hospitalist Dr. Mylene Camejo. Medical Records Attestation: I reviewed the patient's medical records. Lab Data Attestation: I reviewed the patient's lab results. Labs: Lab Results 02/12/25 02/12/25 02/12/25 Range/Units 18:20 18:40 18:57 WBC 14.29 H (4.50-11.00) K/uL RBC 4.27 L (4.30-5.90) m/uL Hgb 11.6 L (13.5-17.5) gm/dL Hct 35.8 L (37.0-53.0) % MCV 84 (80-100) fL MCH 27 (26-34) pg MCHC 32 (32-36) gm/dL RDW Coeff of Richard 15.4 (11.5-15.5) % Plt Count 251 (140-440) K/uL Neut % (Auto) 76.2 H (42.0-72.0) % Lymph % (Auto) 6.5 L (20-44) % [place] % (Auto) 12.8 H (0.0-11.0) % Eos % (Auto) 3.8 (0.0-7.0) % Baso % (Auto) 0.4 (0.0-3.0) % Neut # (Auto) 10.90 H (1.7-7.0) K/uL Lymph # (Auto) 0.90 (0.90-2.90) K/uL [place] # (Auto) 1.80 H (0.00-0.90) K/UL Eos # (Auto) 0.50 (0.00-0.50) K/uL Baso # (Auto) 0.10 (0.00-0.30) K/uL Abs Immat Gran (auto) 0.00 (0.00-0.30) K/uL Imm/Tot Granulo (auto) 0.3 % INR 1.04 (0.91-1.10) Sodium 138 (135-149) mmol/L Potassium 4.7 (3.6-5.1) mmol/L Chloride 100 (96-114) mmol/L Carbon Dioxide 26 (20-32) mmol/L Anion Gap 12 (7-15) mEq/L BUN 14 (7-30) mg/dL Creatinine 0.9 (0.5-1.5) mg/dL Estimated Creat Clear 69.03 Estimated GFR 90 ml/min Glucose 101 (60-115) mg/dL Uric Acid 9.3 H (2.2-8.4) mg/dL Calcium 9.1 (8.4-10.6) mg/dL Total Bilirubin 0.8 (0.1-1.5) mg/dL AST 23 (12-35) U/L ALT 17 (4-50) U/L Alkaline Phosphatase 97 (40-150) U/L C-Reactive Protein 0.9 (0.5-1.0) mg/dL NT-Pro-B Natriuret Pep 3690 H (See Note) pg/mL Total Protein 8.5 H (6.0-8.3) g/dL Albumin 4.6 (3.3-5.0) g/dL Urine Color Yellow (Yellow) Urine Appearance Clear (Clear) Urine pH 7.0 (5.0-8.5) Ur Specific [place] 1.020 (1.000-1.030) Urine Protein 3+ A (Negative) Urine Glucose (UA) Negative (Negative) Urine Ketones Negative (Negative) Urine Blood Trace-lysed A (Negative) Urine Nitrite Negative (Negative) Urine Bilirubin Negative (Negative) Urine Urobilinogen 0.2 (0.2-1.0) Ur Leukocyte Esterase Negative (Negative) Urine RBC 0-2 (0-2) Urine WBC 0-2 (0-5) Ur Squamous Epith Cells None (None-Few) Urine Bacteria None (None) SARS-CoV-2 (PCR) Negative SARS-CoV-2 (Negative) Influenza Type A (PCR) Negative PCR FLU A (Negative) Influenza Type B (PCR) Negative PCR FLU B (Negative) RSV (PCR) Negative PCR RSV (Negative) POC Troponin I 0.00 L (0.01-0.04) ng/ml Imaging Data Chest x-ray: Attestation: I have reviewed the pertinent imaging results. My impression: Increased lung markings consistent with pulmonary edema her primary Radiologist's impression: FINDINGS: The sensitivity and specificity of the exam are severely limited by the patient`s body habitus. Mediastinum: The mediastinum is normal in appearance. The cardiac silhouette is moderately enlarged but may be accentuated by the portable technique. Lung: Small lung volumes are present with mild perihilar vascular crowding, perihilar atelectasis, and bibasilar atelectasis noted. No sign of pleural effusion seen. No pneumothorax is identified. Bone and Soft tissue: Unremarkable for age. IMPRESSIONS: 1. Small lung volumes are present with mild perihilar vascular crowding, perihilar atelectasis, and bibasilar atelectasis noted. 2. The cardiac silhouette is moderately enlarged but may be accentuated by the portable technique. Left elbow x-ray: Attestation: I have reviewed the pertinent imaging results. My impression: FINDINGS: The sensitivity and specificity of the exam are severely limited by the patient`s body habitus. Mediastinum: The mediastinum is normal in appearance. The cardiac silhouette is moderately enlarged but may be accentuated by the portable technique. Lung: Small lung volumes are present with mild perihilar vascular crowding, perihilar atelectasis, and bibasilar atelectasis noted. No sign of pleural effusion seen. No pneumothorax is identified. Bone and Soft tissue: Unremarkable for age. IMPRESSIONS: 1. Small lung volumes are present with mild perihilar vascular crowding, perihilar atelectasis, and bibasilar atelectasis noted. 2. The cardiac silhouette is moderately enlarged but may be accentuated by the portable technique. Radiologist's impression: Moderate to severe soft tissue swelling of the elbow overlying the olecranon with associated calcifications. No acute displaced fracture or malalignment is seen. No elbow joint effusion. Moderate vascular calcification. Impression: Moderate to severe soft tissue swelling of the elbow overlying the olecranon with associated calcifications. Findings may be seen in the setting of gout or calcific olecranon bursitis Venous US: Attestation: I have reviewed the pertinent imaging results. Radiologist's impression: Technically difficult exam due to body habitus and edema. Right: Sonographic imaging of the right lower extremity demonstrates normal compressibility and color Doppler venous blood flow within the common femoral, femoral, deep femoral, and proximal greater saphenous veins. At a lower level the popliteal, peroneal, and posterior tibial veins also show normal compressibility and color Doppler venous blood flow. Subcutaneous edema in the calf. Left: Sonographic imaging of the left lower extremity demonstrates normal compressibility and color Doppler venous blood flow within the common femoral, femoral, deep femoral, and proximal greater saphenous veins. At a lower level the popliteal, peroneal, and posterior tibial veins also show normal compressibility and color Doppler venous blood flow. Subcutaneous edema in the calf. IMPRESSION: Both lower extremities are negative for acute DVT. ECG Data Attestation: I personally reviewed and interpreted this ECG as follows: ECG interpretation date: 02/12/25 Interpretation: EKG by my read shows atrial fibrillation with RVR at a rate of 101. Initially I question this as sinus tachycardia with arrhythmia. There are a few places where I am able to visualize T-waves. No however for the most part I am unable to decipher them. No acute ST or T-wave changes. Discharge Plan Discharge Clinical Impression: Atrial fibrillation with RVR, Elevated uric acid in blood, Acute hypoxemic respiratory failure, Fluid retention Acute CHF Qualifiers: Heart failure type: unspecified Qualified Code(s): I50.9 - Heart failure, unspecified Leukocytosis Qualifiers: Leukocytosis type: unspecified Qualified Code(s): D72.829 - Elevated white blood cell count, unspecified Hypertension Qualifiers: Hypertension type: unspecified Qualified Code(s): I10 - Essential (primary) hypertension Patient Disposition: Admitted As Inpatient Condition: Stable
--- NOTE | 2025-02-12 18:20 | CRLHL7_ITS ---
For Patients: As a result of the Cures Act, medical imaging exams and procedure reports are released immediately into your electronic medical record. You may view this report before your referring provider. If you have questions, please contact your health care provider. Indication: MASS Technique: Two views of the left elbow. Comparison: None. Findings: Moderate to severe soft tissue swelling of the elbow overlying the olecranon with associated calcifications. No acute displaced fracture or malalignment is seen. No elbow joint effusion. Moderate vascular calcification. Impression: Moderate to severe soft tissue swelling of the elbow overlying the olecranon with associated calcifications. Findings may be seen in the setting of gout or calcific olecranon bursitis. Dictated by Bennie Cedeño MD @ 02/12/2025 6:52:52 PM (Electronically Signed)
--- NOTE | 2025-02-12 18:20 | CRLHL7_ITS ---
For Patients: As a result of the Cures Act, medical imaging exams and procedure reports are released immediately into your electronic medical record. You may view this report before your referring provider. If you have questions, please contact your health care provider. INDICATION: Shortness of breath TECHNIQUE: Chest radiograph 1 view on 2 images COMPARISON: None FINDINGS: The sensitivity and specificity of the exam are severely limited by the patient`s body habitus. Mediastinum: The mediastinum is normal in appearance. The cardiac silhouette is moderately enlarged but may be accentuated by the portable technique. Lung: Small lung volumes are present with mild perihilar vascular crowding, perihilar atelectasis, and bibasilar atelectasis noted. No sign of pleural effusion seen. No pneumothorax is identified. Bone and Soft tissue: Unremarkable for age. IMPRESSIONS: 1. Small lung volumes are present with mild perihilar vascular crowding, perihilar atelectasis, and bibasilar atelectasis noted. 2. The cardiac silhouette is moderately enlarged but may be accentuated by the portable technique. Dictated by Severo Graham MD @ 02/12/2025 6:46:41 PM Dictated by: Severo Graham MD @ 02/12/2025 18:46:44 (Electronically Signed)
[2025-02-12 18:55] LABS: Hematocrit* 35.8 % (37.0-53.0); Hemoglobin* 11.6 gm/dL (13.5-17.5); Immature Granulocytes Pct Auto 0.3 %; Mean Corpuscular HGB Conc 32 gm/dL (32-36); Mean Corpuscular Hemoglobin 27 pg (26-34); Mean Corpuscular Volume 84 fL (80-100); RDW Coefficient of Variation % 15.4 % (11.5-15.5); Red Blood Count* 4.27 m/uL (4.30-5.90); White Blood Count* 14.29 K/uL (4.50-11.00)
[2025-02-12 18:58] LABS: Immature Granulocytes Abs Auto 0.00 K/uL (0.00-0.30); Lymphocytes Absolute Auto 0.90 K/uL (0.90-2.90); Slide Review Reflex No
--- NOTE | 2025-02-12 19:00 | CRLHL7_ITS ---
For Patients: As a result of the Century Cures Act, medical imaging exams and procedure reports are released immediately into your electronic medical record. You may view this report before your referring provider. If you have questions, please contact your health care provider. INDICATION: Bilateral lower extremity edema. COMPARISON: Right lower extremity venous ultrasound 01/11/2023. TECHNIQUE: A compression venous ultrasound exam was performed of both lower extremities using salazar scale imaging, color Doppler, and spectral Doppler analysis. FINDINGS: Technically difficult exam due to body habitus and edema. Right: Sonographic imaging of the right lower extremity demonstrates normal compressibility and color Doppler venous blood flow within the common femoral, femoral, deep femoral, and proximal greater saphenous veins. At a lower level the popliteal, peroneal, and posterior tibial veins also show normal compressibility and color Doppler venous blood flow. Subcutaneous edema in the calf. Left: Sonographic imaging of the left lower extremity demonstrates normal compressibility and color Doppler venous blood flow within the common femoral, femoral, deep femoral, and proximal greater saphenous veins. At a lower level the popliteal, peroneal, and posterior tibial veins also show normal compressibility and color Doppler venous blood flow. Subcutaneous edema in the calf. IMPRESSION: Both lower extremities are negative for acute DVT. Dictated by Paulina Subramanian MD @ 02/12/2025 9:02:40 PM (Electronically Signed)
[2025-02-12 19:06] LABS: Appearance Urine Clear (Clear)
[2025-02-12 19:07] LABS: Albumin* 4.6 g/dL (3.3-5.0); Chloride* 100 mmol/L (96-114); Sodium* 138 mmol/L (135-149)
[2025-02-12 19:08] LABS: Potassium* 4.7 mmol/L (3.6-5.1)
[2025-02-12 19:10] LABS: Blood Urea Nitrogen* 14 mg/dL (7-30); Creatinine* 0.9 mg/dL (0.5-1.5); Est. Creatinine Clearance* 69.03; Estimated Glomerular Filt Rate 90 ml/min; INR 1.04 (0.91-1.10); Prothrombin Time 14.5 Seconds
[2025-02-12 19:11] LABS: Alanine Aminotransferase* 17 U/L (4-50); Alkaline Phosphatase* 97 U/L (40-150); Anion Gap 12 mEq/L (7-15); Aspartate Amino Transferase* 23 U/L (12-35); Bilirubin Total* 0.8 mg/dL (0.1-1.5); Calcium* 9.1 mg/dL (8.4-10.6); Carbon Dioxide* 26 mmol/L (20-32); Glucose* 101 mg/dL (60-115); Total Protein* 8.5 g/dL (6.0-8.3)
[2025-02-12 19:20] LABS: NT Pro B Type NatriureticPept* 3690 pg/mL (See Note)
[2025-02-12] MEDS: FUROSEMIDE 10 MG/ML inj 40 MG IVP (19:24)
[2025-02-12 19:34] LABS: PCR FLU A Negative PCR FLU A (Negative); PCR FLU B Negative PCR FLU B (Negative); PCR RSV Negative PCR RSV (Negative); SARS PCR* Negative SARS-CoV-2 (Negative)
[2025-02-12 19:49] LABS: Troponin, Point-of-Care* 0.00 ng/ml (0.01-0.04)
--- NOTE | 2025-02-12 20:52 | PM.IMHP1 ---
Assessment and Plan Assessment and plan (1) Acute hypoxemic respiratory failure: Problem comment: -2/2 pulmonary edema related to acute heart failure from afib rvr -VBG shows alkalosis without CO2 retention -O2 per nasal cannula to keep sats above 90% -patient's family brought CPAP machine, can use home settings -continue IV diuresis, telemetry, compression stockings Status: Acute (2) Acute CHF: Problem comment: -no current echo. inpatient order to determine EF and valve status. 2021 showed EF normal. -diuresis 40mg lasix IV. diuretic naive. Status: Acute (3) Atrial fibrillation with RVR: Problem comment: -takes metoprolol 100mg BID for HTN. -No recent cards visit, echo, or oral anticoagulation -pt relates a hx of cardiac ablation in 2018 while at [facility] (No records) -no hx of ischemic events -smokes cigars, diabetic, obese, hyperlipidemia, htn -will adjust rate control with doses of metoprolol Status: Acute (4) Hypertension: Problem comment: -metoprolol 100 BID -amlodipine 10mg (I put this on hold 2/2 his edema) -hx of angioedema with ACEI Status: Acute (5) Type 2 diabetes mellitus: Problem comment: - noninsulin dependent - home meds (metformin, glipizide) on hold. elevated lactic acid and leukocytosis of unclear significance. SSI. accuchecks. Status: Acute (6) DONTA on CPAP: Problem comment: -home equipment brought in. compliant. Status: Acute (7) Chronic gout: Problem comment: -elevated uric acid -patients reports chronic pain but is opioid naive. usually uses tylenol or tramadol -no allopurinol on home med list (?) Status: Acute (8) Daily consumption of alcohol: Problem comment: cinthia drinker Status: Acute (9) Morbid obesity: Status: Acute Hospitalist- H&P: HPI History of Present Illness Date Seen: 02/12/25 Chief complaint: Diarrhea, short of breath Narrative: ADMISSION HISTORY AND PHYSICAL - HOSPITALIST Chief Complaint: increasing SOB, fatigue, legs swelling HPI: Shayne is a 74 year old white male. He lives in [place] and receives most of his care through the [facility]. he presents today with his daughter and son given recent increases in his work of breathing, dyspnea on exertion and fatigue. He has some intermittent chronic swelling of his right leg which has been present since we saw him a couple years ago for a cellulitic infection. However he has noticed this is been more consistent and now his left leg is swelling. He notes that he cannot do his usual activities without becoming so short of breath he needs to sit down. No fever or productive cough. No recent travel. No chest pain. No palpitations. He does have a history of AFib. He doesn't feel the palpitations or if he is in or out of AFIB. His thoughts are that it was bad in 2018 and he was at [place] [id number] hospitalized and transferred to the [facility]. He underwent an ablation and it was gone. No follow-up. No OAC. No recent cards visits. There is a 2021 echo that shows AFIB. One of our previous notes says he declines OAC so he can use NSAIDS for his gout. The history is unclear. ER COURSE: IV diuresis, portable cxr, elbow xray, labs, u/s of b/l legs. oxygen supplementation. CODE STATUS: FULL CODE. Specifically he states while there is a DNR in his paperwork, that this is for intermediate frame tender vegetative state. he wants CPR and intubation and transfer during this hospitalization if needed. PCP: [facility] EMERGENCY CONTACT PLAN: daughter, Shannon. In contacts. I've updated the PFSH, medications and allergies in the Expanse tabs. INVESTIGATIONS: LABS/MICRO/ECG/IMAGING Blood pressures have been elevated 171/111 to 146/109 Pulse has running 120-105, AFib Respiratory rate is mildly elevated 20-25 Pulse ox mid 80s on room air 94% on 4 L It would appear he is up 3-3-1/2 kg CBC reflects a mild leukocytosis of 14.2. Hemoglobin 11.6. Platelets are normal. INR this evening 1.04 Uric acid 9.3 Electrolytes and renal function are unremarkable. His creatinine is 0.9. His glucose is 101. a1c 6.9 Liver enzymes are normal. C reactive protein 0.9 BNP 3690 Mildly elevated total protein Urine at admission shows 3+ protein otherwise unremarkable. Respiratory swabs negative Point of care troponin negative mildly elevated lactate and pH No micro ordered EKG: afib with rvr Duplex ultrasound lower extremities: Both lower extremities are negative for acute DVT. Portable one view chest x-ray in the emergency room 1. Small lung volumes are present with mild perihilar vascular crowding, perihilar atelectasis, and bibasilar atelectasis noted. Elbow x-ray Moderate to severe soft tissue swelling of the elbow overlying the olecranon with associated calcifications. Findings may be seen in the setting of gout or calcific olecranon bursitis. REVIEW OF SYSTEMS: 12-point ROS completed with patient and negative unless otherwise stated in HPI or below. Findings from EPIC review abdomen u/s September 2023: 1. Slight enlargement and fatty infiltration of the liver. No liver lesions or ascites. 2. Small gallbladder polyp. No stones. No obstruction of the bile ducts. 3. 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 The bladder is markedly enlarged. These findings are similar to the renal ultrasound of 08/09/2017. Echo July 2021 1. Normal global systolic function. EF 55-60%. Noted AFib. 2. RV function normal 3. Severe left atrial enlargement PHYSICAL EXAM: CONSTITUTIONAL: Conversive, decent historian but medical nuances and medication names allude him. A/O. Knows setting and context. GENERAL: Well-developed and above ideal body weight, in mild respiratory distress. VITAL SIGNS: see record. HEENT: Sclerae are anicteric. No petechiae. CARDIAC: rhythm is irregular. There is no S3 or rub. No harsh murmurs. Extremities show 2-3+ edema with symmetrical pulses. PULM: scattered wheeze on expiration. mild increase in JVD. NEURO: Speech is fluent. A brief neurologic exam is negative. MSK: chronic appearing left olecranon bursa sac SKIN: No rashes, petechiae, concerning changes PSYCHIATRIC: Euthymic. ADMIT TO MEDSURG: FLOOR CARE DVT: eliquis 5mg (new this hospitalization) GI: PO intake Time spent: Today I spent 75 minutes seeing the patient, discussing the patient with ER staff, reviewing Expanse and EPIC notes/diagnostics, discussing the care plan with our care time that includes social work, PT/OT, pharmacy, RT, longterm and documenting my impressions and plan in the medical record. MEDICAL NECESSITY FOR HOSPITALIZATION Anticipated midnights in the hospital: 2 Admitting diagnosis: Acute hypoxic respiratory failure, obese elderly. AFib with rapid ventricular rate. Acute CHF. Risk of morbidity and mortality: high Acuity is characterized as high and reflected in: Poor insight into AFib. Education needed. Oxygen needed. IV diuresis needed. Lives alone. Complicating history includes morbid obesity, daily drinking, DONTA, type 2 diabetes, chronic gout. His elevated lactate and leukocytosis are also concerning and significance is yet to be determined. This patient will require hospital services as outlined in the assessment and plan in order to stabilize and be safely discharged to a lower level of care. Because of the risk and acuity as described above, this patient cannot be managed at a lower level of care. LENGTH OF STAY: 2 IP ? Anticipated LOS>2 midnights due to acuity of clinical presentation requiring inpatient level of care Medical Decision Making Medical Decision Making Has patient completed a Health Care Directive: No [facility] Medical History (Updated 02/12/25 @ 22:03 by Mylene Camejo MD) Daily consumption of alcohol ?Z78.9 - Other specified health status (ICD-10) Chronic gout ?M1A.9XX0 - Chronic gout, unspecified, without tophus (tophi) (ICD-10) Olecranon bursitis of left elbow ?M70.22 - Olecranon bursitis, left elbow (ICD-10) Morbid obesity ?E66.01 - Morbid (severe) obesity due to excess calories (ICD-10) DONTA on CPAP ?G47.33 - Obstructive sleep apnea (adult) (pediatric) (ICD-10) Type 2 diabetes mellitus ?E11.9 - Type 2 diabetes mellitus without complications (ICD-10) Atrial fibrillation ?I48.91 - Unspecified atrial fibrillation (ICD-10) B12 deficiency ?E53.8 - Deficiency of other specified B group vitamins (ICD-10) Lumbosacral radiculopathy at L5 ?M54.17 - Radiculopathy, lumbosacral region (ICD-10) Spinal stenosis ?M48.00 - Spinal stenosis, site unspecified (ICD-10) Surgical History (Updated 02/12/25 @ 21:42 by Mylene Camejo MD) History of colonoscopy ?Z98.890 - Other specified postprocedural states (ICD-10) Status post ablation of atrial fibrillation ?Z98.890 - Other specified postprocedural states (ICD-10) ?Z86.79 - Personal history of other diseases of the circulatory system (ICD-10) Social History (Updated 02/12/25 @ 21:44 by Mylene Camejo MD) Narrative: Lives alone/. Veena in 05/12 from complications of MS. They have 3 adult children. Previously worked for [employer]. Occasional cigar smoker. Drinks daily (2-4 cinthia drinks daily). No history of withdrawal. What is your current living situation?: I presently have a place to live Problems where you live: no known problems Problems where you live details: NA In the past 12 months, utilities in danger of being shut off: no In past 12 months, lack of transportation kept you from medical appts, meetings, work, or getting things needed for daily living: no In the past 12 mos, have been you worried that your food would run out before you had money to buy more?: never true In the past 12 mos, the food you bought just didn't last and you didn't have money to buy more?: never true Highest level of school completed/degree received: 12th grade, no diploma Smoking Status: Light tobacco smoker What tobacco products do you use: cigars Nicotine containing products detail: Smokes cigars on occasion Second hand tobacco smoke exposure: Yes How often do you have a drink containing alcohol: 4 or more times a week Alcohol type: beer Alcohol type details: Cinthia How many standard drinks containing alcohol do you have on a typical day: 1 or 2 How often do you have six or more drinks on one occasion: Never AUDIT-C Alcohol total score: 4 Non-prescribed substance use: denies use Caffeine: Yes How often does anyone, including family, friends and others, physically hurt you: never How often does anyone, including family, friends and others, insult or talk down to you: never How often does anyone, including family, friends and others, threaten you with harm: never How often does anyone, including family, friends and others, scream or curse at you: never Gender Identity: male service: Yes Meds Home Medications and Allergies Home Medications ?Medication ?Instructions ?Recorded ?Confirmed ?Type amlodipine 10 mg tablet 10 mg PO DAILY 01/11/23 02/12/25 History atorvastatin 20 mg tablet 20 mg PO QHS 01/11/23 02/12/25 History glipizide 10 mg tablet 10 mg PO BID 01/11/23 02/12/25 History metformin 1,000 mg tablet 1,000 mg PO BIDWMEAL 01/11/23 02/12/25 History metoprolol tartrate 100 mg tablet 100 mg PO BID 01/11/23 02/12/25 History acetaminophen 325 mg tablet 650 - 975 mg (2 - 3 x 325 mg) PO 01/14/23 02/12/25 Rx Q6H PRN 1 day #100 tabs benazepril 20 mg tablet 40 mg (2 x 20 mg) PO DAILY #30 tabs 01/14/23 02/12/25 Rx Allergies Allergy/AdvReac Type Severity Reaction Status Date / Time MOISÉS Inhibitors Allergy Severe angioedema Verified 02/12/25 20:22 Exam Const: Vital Signs, click to edit/add: Vital Signs - 24 hr 02/12/25 18:02 02/12/25 18:19 02/12/25 18:30 Temperature 98.5 F Pulse Rate 120 H 108 H Pulse Rate [Pulse Oximeter] 104 H Respiratory Rate 20 25 H Blood Pressure Blood Pressure [Le ft Upper Arm] 167/101 H Pulse Oximetry 92 90 87 L Oxygen Delivery Me thod Room Air Oxygen Flow Rate 02/12/25 18:45 02/12/25 19:15 02/12/25 19:30 Temperature Pulse Rate 97 111 H 104 H Pulse Rate [Pulse Oximeter] Respiratory Rate Blood Pressure Blood Pressure [Le ft Upper Arm] Pulse Oximetry 89 87 L 92 Oxygen Delivery Me thod Nasal Cannula Oxygen Flow Rate 4 02/12/25 19:32 02/12/25 19:45 02/12/25 20:00 Temperature Pulse Rate 112 H 99 101 H Pulse Rate [Pulse Oximeter] Respiratory Rate Blood Pressure 171/111 H Blood Pressure [Le ft Upper Arm] Pulse Oximetry 94 93 Oxygen Delivery Me thod Nasal Cannula Nasal Cannula Nasal Cannula Oxygen Flow Rate 4 4 4 02/12/25 20:02 02/12/25 20:15 02/12/25 20:30 Temperature Pulse Rate 92 100 100 Pulse Rate [Pulse Oximeter] Respiratory Rate Blood Pressure 138/100 H Blood Pressure [Le ft Upper Arm] Pulse Oximetry 92 93 94 Oxygen Delivery Me thod Nasal Cannula Nasal Cannula Nasal Cannula Oxygen Flow Rate 4 4 4 02/12/25 20:32 Temperature Pulse Rate 105 H Pulse Rate [Pulse Oximeter] Respiratory Rate Blood Pressure 146/109 H Blood Pressure [Le ft Upper Arm] Pulse Oximetry 94 Oxygen Delivery Me thod Nasal Cannula Oxygen Flow Rate 4 Hospitalist - H&P: Result Labs Labs: Short CBC 02/12/25 Range/Units 18:40 WBC 14.29 H (4.50-11.00) K/uL Hgb 11.6 L (13.5-17.5) gm/dL Hct 35.8 L (37.0-53.0) % Plt Count 251 (140-440) K/uL BMP 02/12/25 18:40 Sodium 138 Potassium 4.7 Chloride 100 Carbon Dioxide 26 BUN 14 Creatinine 0.9 Glucose 101 Calcium 9.1 Liver Function 02/12/25 Range/Units 18:40 Total Bilirubin 0.8 (0.1-1.5) mg/dL AST 23 (12-35) U/L ALT 17 (4-50) U/L Alkaline Phosphatase 97 (40-150) U/L Albumin 4.6 (3.3-5.0) g/dL Urine 02/12/25 Range/Units 18:57 Urine Color Yellow (Yellow) Urine Appearance Clear (Clear) Urine pH 7.0 (5.0-8.5) Ur Specific [place] 1.020 (1.000-1.030) Urine Protein 3+ A (Negative) Urine Glucose (UA) Negative (Negative)
[2025-02-12] MEDS: APIXABAN 5 MG TABLET PO (20:56)
[2025-02-12 21:25] LABS: HCO3 VBG 25 mmol/L (21-28); Lactate* 2.3 mmol/L (0.5-1.9); PCO2 VBG 37 mmHG (40-50); PO2 VBG 42.4 mmHG (25-47); pH VBG 7.440 (7.32-7.43)
[2025-02-12] MEDS: METOPROLOL TARTRATE 100 MG TABLET PO (22:27)
[2025-02-13] VITALS (11 sets, daily range): BP systolic 129–157; BP diastolic 63–107; PULSE 80–93; RESP 17–24; TEMP 36.7–36.9; O2SAT 90–96
[2025-02-13] MEDS: SODIUM CHLORIDE 0.9 % (FLUSH) 10 ML SYRINGE 5 ML IVF ×4 (02:26→21:00)
[2025-02-13 06:08] LABS: HCO3 VBG 27 mmol/L (21-28); Hematocrit* 30.9 % (37.0-53.0); Hemoglobin* 10.1 gm/dL (13.5-17.5); Immature Granulocytes Abs Auto 0.02 K/uL (0.00-0.30); Immature Granulocytes Pct Auto 0.2 %; Lactate* 1.3 mmol/L (0.5-1.9); Mean Corpuscular HGB Conc 33 gm/dL (32-36); Mean Corpuscular Hemoglobin 28 pg (26-34); Mean Corpuscular Volume 84 fL (80-100); PCO2 VBG 36 mmHG (40-50); PO2 VBG 54.5 mmHG (25-47); RDW Coefficient of Variation % 15.4 % (11.5-15.5); Red Blood Count* 3.67 m/uL (4.30-5.90); White Blood Count* 8.58 K/uL (4.50-11.00); pH VBG 7.474 (7.32-7.43)
[2025-02-13 06:12] LABS: Lymphocytes Absolute Auto 0.80 K/uL (0.90-2.90); Slide Review Reflex No
--- NOTE | 2025-02-13 06:28 | PC.NURSE ---
Shift note ([id number]): Patient admitted from ED at 2104. Arrived on 4 LPM O2 via NC. Pleasant, alert and oriented. Ambulated independently in room. Needed assistance in bathroom after having a loose stool. Reports tolerating discomfort in hands due to gout. 3+ pitting edema to BLL. O2 weaned down to 1 LPM bled through C-Pap to maintain O2 sats 90-92%. ?
[2025-02-13 06:30] LABS: Albumin* 3.7 g/dL (3.3-5.0); Chloride* 101 mmol/L (96-114); Potassium* 4.4 mmol/L (3.6-5.1); Sodium* 134 mmol/L (135-149)
[2025-02-13 06:33] LABS: Anion Gap 7 mEq/L (7-15); Blood Urea Nitrogen* 14 mg/dL (7-30); Calcium* 8.6 mg/dL (8.4-10.6); Carbon Dioxide* 26 mmol/L (20-32); Creatinine* 0.9 mg/dL (0.5-1.5); Est. Creatinine Clearance* 69.03; Estimated Glomerular Filt Rate 90 ml/min; Glucose* 129 mg/dL (60-115)
[2025-02-13] MEDS: OMEPRAZOLE 20 MG CAPSULE DR 40 MG PO (06:45)
[2025-02-13] MEDS: METOPROLOL TARTRATE 100 MG TABLET PO ×2 (09:10→20:59)
[2025-02-13] MEDS: ATORVASTATIN CALCIUM 10 MG TABLET 20 MG PO (09:10)
[2025-02-13] MEDS: APIXABAN 5 MG TABLET PO ×2 (09:10→21:00)
[2025-02-13] MEDS: FUROSEMIDE 10 MG/ML inj 40 MG IVP ×2 (09:11→16:31)
--- NOTE | 2025-02-13 11:22 | RESP.RT ---
Patient resting in bed, on 1 Lpm NC, SaO2 92%. Patient walked with PT on 1Lpm Oxygen, SaO2 decreased at on one point to 82% SaO2, Patient stopped rested a few moments SaO2 increased to 88%. Patient has good clear voice, BBS with fine crackles through out, good air movement, except LLL diminished with crackles noted. RR 24/minute, breathing regular/easy. Patient has home Pulsometry stated it's between 90-95%. Home CPAP x 20 years, patient wears every night. No home respiratory medications. Will continue to follow.
[2025-02-13 11:56] LABS: CDIFFEPI 027 PRESUMPTIVE NEGATIVE (Negative)
[2025-02-13] MEDS: INSULIN ASPART 100 UNIT/ML SUBCUT ×2 (12:21→20:58)
[2025-02-13 12:32] LABS: C.Difficile POSITIVE (Negative)
[2025-02-13] MEDS: VANCOMYCIN 125 MG CAPSULE PO ×3 (13:33→20:59)
--- NOTE | 2025-02-13 13:33 | P.IMPN_ITS ---
Assessment and Plan Assessment and plan (1) C. difficile diarrhea: Problem comment: - Start oral vanco, lactobacillus, precautions Status: Acute (2) Acute hypoxemic respiratory failure: Problem comment: -2/2 pulmonary edema related to acute heart failure from afib rvr -VBG shows alkalosis without CO2 retention (respiratory alkalosis) -O2 per nasal cannula to keep sats above 90% -patient's family brought CPAP machine, can use home settings - 02/13 Improving, possibly resolved. Satting well on RA today. Status: Acute (3) Acute CHF: Problem comment: -no current echo. inpatient order to determine EF and valve status. 2021 showed EF normal. -diuresis 40mg lasix IV. diuretic naive. - 02/13 wt 2kg decrease overnight. Continue IV diuresis, Cr stable. HR better control today, which will likely also improve HF. Monitor. Status: Acute (4) Atrial fibrillation with RVR: Problem comment: -takes metoprolol 100mg BID for HTN. -No recent cards visit, echo, or oral anticoagulation -pt relates a hx of cardiac ablation in 2018 while at [facility] (No records) -no hx of ischemic events -smokes cigars, diabetic, obese, hyperlipidemia, htn -will adjust rate control with doses of metoprolol - 02/13 HR better control today, under 100bpm. Continue to monitor on telemetry, continue metoprolol 100 mg BID, has not needed any extra. Suspect Cdiff exacerbated HR. Status: Acute (5) Hypertension: Problem comment: -metoprolol 100 BID -amlodipine 10mg (I put this on hold 2/2 his edema) -hx of angioedema with ACEI Status: Acute (6) Type 2 diabetes mellitus: Problem comment: - noninsulin dependent - home meds (metformin, glipizide) on hold. elevated lactic acid and leukocytosis of unclear significance. SSI. accuchecks. - 02/13 POC glucoses 110-210. Continue current regimen. Status: Chronic (7) DONTA on CPAP: Problem comment: -home equipment brought in. compliant. Status: Chronic (8) Chronic gout: Problem comment: -elevated uric acid -patients reports chronic pain but is opioid naive. usually uses tylenol or tramadol -no allopurinol on home med list (?) - recommend abstinence from alcohol Status: Chronic (9) Daily consumption of alcohol: Problem comment: ash drinker - recommend abstinence from alcohol due to gout, HF. Status: Chronic (10) Morbid obesity: Status: Chronic Total Time Spent Total Time Spent: Today I spent 50 minutes seeing the patient, reviewing Expanse and EPIC notes/diagnostics/labs, discussing the care plan with our care team that includes social work, PT/OT, pharmacy, RT, detention and documenting my impressions and plan in the medical record. Subjective Time Seen by Provider: 08:24 Date Seen: 02/13/25 Interval history: hSayne tells me that he is less short of breath and his legs are less swollen than when he came in yesterday. He also says he has been constipated for a few days and his daughter told him to take MiraLax, so he did that yesterday and now he is having copious amounts of diarrhea. Exam Narrative: Exam Narrative: General: No acute distress. Awake, alert, oriented x3. No pallor. No jaundice. Oropharynx: Clear. Mucous membranes moist. Cardiovascular: Irregularly irregular. No murmurs, gallops, or rubs. Respiratory: Bibasilar crackles, no wheezes. Abdomen: Bowel sounds present. Soft, nondistended, nontender. Stool smear in the bed and on the outside of his depends. Extremities: 2+ bilateral lower extremity pitting edema. Const: Vital Signs, click to edit/add: Vital Signs - 24 hr 02/12/25 18:02 02/12/25 18:19 02/12/25 18:30 Temperature 98.5 F Pulse Rate 120 H 108 H Pulse Rate [Pulse Oximeter] 104 H Respiratory Rate 20 25 H Blood Pressure Blood Pressure [Le ft Upper Arm] 167/101 H Blood Pressure [Ri ght Arm] Pulse Oximetry 92 90 87 L Oxygen Delivery Me thod Room Air Oxygen Flow Rate Fraction of Inspir ed Oxygen 02/12/25 18:45 02/12/25 19:15 02/12/25 19:30 Temperature Pulse Rate 97 111 H 104 H Pulse Rate [Pulse Oximeter] Respiratory Rate Blood Pressure Blood Pressure [Le ft Upper Arm] Blood Pressure [Ri ght Arm] Pulse Oximetry 89 87 L 92 Oxygen Delivery Me thod Nasal Cannula Oxygen Flow Rate 4 Fraction of Inspir ed Oxygen 02/12/25 19:32 02/12/25 19:45 02/12/25 20:00 Temperature Pulse Rate 112 H 99 101 H Pulse Rate [Pulse Oximeter] Respiratory Rate Blood Pressure 171/111 H Blood Pressure [Le ft Upper Arm] Blood Pressure [Ri ght Arm] Pulse Oximetry 94 93 Oxygen Delivery Me thod Nasal Cannula Nasal Cannula Nasal Cannula Oxygen Flow Rate 4 4 4 Fraction of Inspir ed Oxygen 02/12/25 20:02 02/12/25 20:15 02/12/25 20:30 Temperature Pulse Rate 92 100 100 Pulse Rate [Pulse Oximeter] Respiratory Rate Blood Pressure 138/100 H Blood Pressure [Le ft Upper Arm] Blood Pressure [Ri ght Arm] Pulse Oximetry 92 93 94 Oxygen Delivery Me thod Nasal Cannula Nasal Cannula Nasal Cannula Oxygen Flow Rate 4 4 4 Fraction of Inspir ed Oxygen 02/12/25 20:32 02/12/25 20:33 02/12/25 21:00 Temperature Pulse Rate 105 H 103 H 113 H Pulse Rate [Pulse Oximeter] Respiratory Rate Blood Pressure 146/109 H Blood Pressure [Le ft Upper Arm] Blood Pressure [Ri ght Arm] Pulse Oximetry 94 93 92 Oxygen Delivery Me thod Nasal Cannula Nasal Cannula Nasal Cannula Oxygen Flow Rate 4 4 4 Fraction of Inspir ed Oxygen 02/12/25 21:09 02/12/25 21:09 02/12/25 21:09 Temperature 98.0 F Pulse Rate Pulse Rate [Pulse Oximeter] 93 Respiratory Rate 21 111 H Blood Pressure Blood Pressure [Le ft Upper Arm] Blood Pressure [Ri ght Arm] 165/110 H Pulse Oximetry 93 93 94 Oxygen Delivery Me thod Nasal Cannula Nasal Cannula Oxygen Flow Rate 4 4 Fraction of Inspir ed Oxygen 02/12/25 21:16 02/12/25 21:52 02/12/25 23:00 Temperature 98.0 F Pulse Rate 89 Pulse Rate [Pulse Oximeter] 111 H Respiratory Rate 21 21 Blood Pressure Blood Pressure [Le ft Upper Arm] Blood Pressure [Ri ght Arm] 165/110 H Pulse Oximetry 94 94 Oxygen Delivery Me thod Nasal Cannula Nasal Cannula Oxygen Flow Rate 4 4 Fraction of Inspir ed Oxygen 02/13/25 01:58 02/13/25 01:58 02/13/25 07:00 Temperature 98.3 F Pulse Rate Pulse Rate [Pulse Oximeter] 87 Respiratory Rate 17 24 Blood Pressure Blood Pressure [Le ft Upper Arm] Blood Pressure [Ri ght Arm] 132/96 H Pulse Oximetry 96 96 92 Oxygen Delivery Me thod CPAP Nasal Cannula Oxygen Flow Rate 1 Fraction of Inspir ed Oxygen 02/13/25 07:00 02/13/25 08:02 02/13/25 08:11 Temperature 98.5 F Pulse Rate 87 Pulse Rate [Pulse Oximeter] 84 84 Respiratory Rate 24 24 Blood Pressure Blood Pressure [Le ft Upper Arm] Blood Pressure [Ri ght Arm] 143/98 H Pulse Oximetry 92 Oxygen Delivery Me thod Nasal Cannula Oxygen Flow Rate Fraction of Inspir ed Oxygen 1 02/13/25 08:20 02/13/25 11:16 02/13/25 11:53 Temperature 98.3 F Pulse Rate Pulse Rate [Pulse Oximeter] 92 Respiratory Rate 24 18 Blood Pressure Blood Pressure [Le ft Upper Arm] Blood Pressure [Ri ght Arm] 138/107 H Pulse Oximetry 92 92 91 Oxygen Delivery Me thod Nasal Cannula Room Air Oxygen Flow Rate 1 Fraction of Inspir ed Oxygen Labs Labs: Laboratory Results - last 24 hr 02/12/25 02/12/25 02/12/25 18:20 18:40 18:57 WBC 14.29 H RBC 4.27 L Hgb 11.6 L Hct 35.8 L MCV 84 MCH 27 MCHC 32 RDW Coeff of Richard 15.4 Plt Count 251 Neut % (Auto) 76.2 H Lymph % (Auto) 6.5 L [place] % (Auto) 12.8 H Eos % (Auto) 3.8 Baso % (Auto) 0.4 Neut # (Auto) 10.90 H Lymph # (Auto) 0.90 [place] # (Auto) 1.80 H Eos # (Auto) 0.50 Baso # (Auto) 0.10 Abs Immat Gran (auto) 0.00 Imm/Tot Granulo (auto) 0.3 INR 1.04 VBG pH VBG pCO2 VBG pO2 VBG HCO3 Sodium 138 Potassium 4.7 Chloride 100 Carbon Dioxide 26 Anion Gap 12 BUN 14 Creatinine 0.9 Estimated Creat Clear 69.03 Estimated GFR 90 Glucose 101 Hemoglobin A1c 6.9 H Lactate Uric Acid 9.3 H Calcium 9.1 Phosphorus Magnesium Total Bilirubin 0.8 AST 23 ALT 17 Alkaline Phosphatase 97 Troponin I C-Reactive Protein 0.9 NT-Pro-B Natriuret Pep 3690 H Total Protein 8.5 H Albumin 4.6 Urine Color Yellow Urine Appearance Clear Urine pH 7.0 Ur Specific Reynolds 1.020 Urine Protein 3+ A Urine Glucose (UA) Negative Urine Ketones Negative Urine Blood Trace-lysed A Urine Nitrite Negative Urine Bilirubin Negative Urine Urobilinogen 0.2 Ur Leukocyte Esterase Negative Urine RBC 0-2 Urine WBC 0-2 Ur Squamous Epith Cells None Urine Bacteria None Stl C. diff Tox B Gene Stl C. diff -NAP1-BI SARS-CoV-2 (PCR) Negative SARS-CoV-2 Influenza Type A (PCR) Negative PCR FLU A Influenza Type B (PCR) Negative PCR FLU B RSV (PCR) Negative PCR RSV Lab Acknowledgement POC Troponin I 0.00 L 02/12/25 02/12/25 02/13/25 21:09 21:20 05:36 WBC 8.58 RBC 3.67 L Hgb 10.1 L Hct 30.9 L MCV 84 MCH 28 MCHC 33 RDW Coeff of Richard 15.4 Plt Count 190 Neut % (Auto) 68.9 Lymph % (Auto) 9.2 L [place] % (Auto) 16.0 H Eos % (Auto) 5.2 Baso % (Auto) 0.5 Neut # (Auto) 5.91 Lymph # (Auto) 0.80 L [place] # (Auto) 1.40 H Eos # (Auto) 0.45 Baso # (Auto) 0.04 Abs Immat Gran (auto) 0.02 Imm/Tot Granulo (auto) 0.2 INR VBG pH 7.440 H 7.474 H VBG pCO2 37 L 36 L VBG pO2 42.4 54.5 H VBG HCO3 25 27 Sodium 134 L Potassium 4.4 Chloride 101 Carbon Dioxide 26 Anion Gap 7 BUN 14 Creatinine 0.9 Estimated Creat Clear 69.03 Estimated GFR 90 Glucose 129 H Hemoglobin A1c Lactate 2.3 H 1.3 Uric Acid 9.3 H Calcium 8.6 Phosphorus 4.2 Magnesium 2.0 Total Bilirubin AST ALT Alkaline Phosphatase Troponin I < 0.01 C-Reactive Protein NT-Pro-B Natriuret Pep Total Protein Albumin 3.7 Urine Color Urine Appearance Urine pH Ur Specific Reynolds Urine Protein Urine Glucose (UA) Urine Ketones Urine Blood Urine Nitrite Urine Bilirubin Urine Urobilinogen Ur Leukocyte Esterase Urine RBC Urine WBC Ur Squamous Epith Cells Urine Bacteria Stl C. diff Tox B Gene Stl C. diff 027-NAP1-BI SARS-CoV-2 (PCR) Influenza Type A (PCR) Influenza Type B (PCR) RSV (PCR) Lab Acknowledgement Test Added POC Troponin I 02/13/25 10:50 WBC RBC Hgb Hct MCV MCH MCHC RDW Coeff of Richard Plt Count Neut % (Auto) Lymph % (Auto) [place] % (Auto) Eos % (Auto) Baso % (Auto) Neut # (Auto) Lymph # (Auto) [place] # (Auto) Eos # (Auto) Baso # (Auto) Abs Immat Gran (auto) Imm/Tot Granulo (auto) INR VBG pH VBG pCO2 VBG pO2 VBG HCO3 Sodium Potassium Chloride Carbon Dioxide Anion Gap BUN Creatinine Estimated Creat Clear Estimated GFR Glucose Hemoglobin A1c Lactate Uric Acid Calcium Phosphorus Magnesium Total Bilirubin AST ALT Alkaline Phosphatase Troponin I C-Reactive Protein NT-Pro-B Natriuret Pep Total Protein Albumin Urine Color Urine Appearance Urine pH Ur Specific Reynolds Urine Protein Urine Glucose (UA) Urine Ketones Urine Blood Urine Nitrite Urine Bilirubin Urine Urobilinogen Ur Leukocyte Esterase Urine RBC Urine WBC Ur Squamous Epith Cells Urine Bacteria Stl C. diff Tox B Gene POSITIVE A* Stl C. diff [id number]-NAP1-BI PRESUMPTIVE NEGATIVE SARS-CoV-2 (PCR) Influenza Type A (PCR) Influenza Type B (PCR) RSV (PCR) Lab Acknowledgement POC Troponin I
[2025-02-13] MEDS: LACTOBACILLUS ACIDOPHILUS 1 TABLET 2 TAB PO (18:24)
--- NOTE | 2025-02-13 18:36 | PC.NURSE ---
End of shift-- Very pleasant and cooperative, alert and oriented patient. VSS and pt is afebrile. SPO2 maintained >90% on 1L per n.c. O2 sats dropped as low as 85-86% on RA with ambulation. Crackles auscultated in bilateral bases posteriorly increased on left side. Telemetry shows a-fib with NVR. MD is aware. Echo completed at bedside today and pt tolerated it well. 2-3+ pitting edema noted in bilateral LE, increased on right. Lasix for diuresis given per MD order. Pt was up to BR independently, showered today and ambulated in hallway this morning with SBA. Pt denied nausea and ate a regular dinner without difficulty. He did c/o several loose BMs today, however, and was found to be C.diff +. Report to oncoming shift.
[2025-02-14] VITALS (10 sets, daily range): BP systolic 126–165; BP diastolic 83–127; PULSE 75–98; RESP 16–20; TEMP 36.6–36.9; O2SAT 89–97
--- NOTE | 2025-02-14 06:00 | PC.NURSE ---
Shift note ([id number]): Patient pleasant, alert and oriented. Independent in room. Continues on precautions for C-Diff. Denied any diarrhea and reports having a formed BM this afternoon. O2 91% on?1LPM while awake. Oxygen bled through C-Pap during night?at 1-2 LPM to maintain O2 sats above 89%. Tubi-locomotive mechanic apprentice applied to lower extremities. Scheduled Metoprolol given at HS. Q 4hr Metoprolol held this shift for HR below 90. BPs remain elevated at 140/88, 143/83 and 139/95.?Denied pain and SOB.?
[2025-02-14] MEDS: OMEPRAZOLE 20 MG CAPSULE DR 40 MG PO (06:57)
[2025-02-14 06:58] LABS: Hematocrit* 32.2 % (37.0-53.0); Hemoglobin* 10.5 gm/dL (13.5-17.5); Immature Granulocytes Abs Auto 0.03 K/uL (0.00-0.30); Immature Granulocytes Pct Auto 0.4 %; Mean Corpuscular HGB Conc 33 gm/dL (32-36); Mean Corpuscular Hemoglobin 27 pg (26-34); Mean Corpuscular Volume 84 fL (80-100); RDW Coefficient of Variation % 15.1 % (11.5-15.5); Red Blood Count* 3.85 m/uL (4.30-5.90); White Blood Count* 8.55 K/uL (4.50-11.00)
[2025-02-14 07:01] LABS: Lymphocytes Absolute Auto 0.90 K/uL (0.90-2.90); Slide Review Reflex No
[2025-02-14 07:16] LABS: Chloride* 97 mmol/L (96-114); Potassium* 4.0 mmol/L (3.6-5.1); Sodium* 134 mmol/L (135-149)
[2025-02-14 07:19] LABS: Anion Gap 11 mEq/L (7-15); Blood Urea Nitrogen* 16 mg/dL (7-30); Calcium* 8.5 mg/dL (8.4-10.6); Carbon Dioxide* 26 mmol/L (20-32); Creatinine* 0.9 mg/dL (0.5-1.5); Est. Creatinine Clearance* 69.03; Estimated Glomerular Filt Rate 90 ml/min; Glucose* 137 mg/dL (60-115)
[2025-02-14] MEDS: LACTOBACILLUS ACIDOPHILUS 1 TABLET 2 TAB PO ×3 (08:49→17:26)
[2025-02-14] MEDS: VANCOMYCIN 125 MG CAPSULE PO ×4 (09:00→20:58)
[2025-02-14] MEDS: METOPROLOL TARTRATE 100 MG TABLET PO ×2 (09:01→20:58)
[2025-02-14] MEDS: ATORVASTATIN CALCIUM 10 MG TABLET 20 MG PO (09:01)
[2025-02-14] MEDS: APIXABAN 5 MG TABLET PO ×2 (09:01→20:58)
[2025-02-14] MEDS: FUROSEMIDE 10 MG/ML inj 40 MG IVP ×2 (09:02→16:08)
[2025-02-14] MEDS: SODIUM CHLORIDE 0.9 % (FLUSH) 10 ML SYRINGE 5 ML IVF ×2 (09:02→21:16)
--- NOTE | 2025-02-14 11:01 | RESP.RT ---
Patient up in chair on NC 2 Lpm 95% SaO2, breathing regular/easy, RR 20/minute. PEP with Aerobika, patient used well, good exhalation, with good chest shake. Promoted non-productive good cough. SaO2 increased to 98% with use. BBS with fine crackles noted through out, good air movement, LLL diminished over rest of Lung ny. NC decreased to 1 Lpm, SaO2 92%.
[2025-02-14] MEDS: INSULIN ASPART 100 UNIT/ML SUBCUT ×3 (12:21→21:05)
--- NOTE | 2025-02-14 14:16 | PC.NURSE ---
Pt is doing well today. VSS. Denies pain. SOB is improving with activity. Pt is sating well on 1L O2 NC. Tolerating oral intake. Pt reports formed stool. Pleasant to care for. Resting well at this time.
--- NOTE | 2025-02-14 14:59 | P.IMPN_ITS ---
Assessment and Plan Assessment and plan (1) C. difficile diarrhea: Problem comment: - continue oral vanco, lactobacillus, precautions Status: Acute (2) Acute hypoxemic respiratory failure: Problem comment: -2/2 pulmonary edema related to acute heart failure from afib rvr -VBG shows alkalosis without CO2 retention (respiratory alkalosis) -O2 per nasal cannula to keep sats above 90% -patient's family brought CPAP machine, can use home settings - 02/13 Improving, possibly resolved. Satting well on RA today. - 02/14 requiring a small amount of oxygen yet, and continue diuresis, possible discharge home tomorrow if able to wean off oxygen Status: Acute (3) Acute CHF: Problem comment: -no current echo. inpatient order to determine EF and valve status. 2021 showed EF normal. -diuresis 40mg lasix IV. diuretic naive. - 02/13 wt 2kg decrease overnight. Continue IV diuresis, Cr stable. HR better control today, which will likely also improve HF. Monitor. - 02/14 3kg decrease overnight. Still requiring some oxygen. Discussed heart healthy, low salt diet. Continue diuresis, possible discharge home tomorrow if able to wean off oxygen. Status: Acute (4) Atrial fibrillation with RVR: Problem comment: -takes metoprolol 100mg BID for HTN. -No recent cards visit, echo, or oral anticoagulation -pt relates a hx of cardiac ablation in 2018 while at [facility] (No records) -no hx of ischemic events -smokes cigars, diabetic, obese, hyperlipidemia, htn -will adjust rate control with doses of metoprolol - 02/13 HR better control today, under 100bpm. Continue to monitor on telemetry, continue metoprolol 100 mg BID, has not needed any extra. Suspect Cdiff exacerbated HR. - 02/14 good control with metoprolol. Eliquis for anticoag Status: Acute (5) Hypertension: Problem comment: -metoprolol 100 BID -amlodipine 10mg (I put this on hold 2/2 his edema) -hx of angioedema with ACEI Status: Acute (6) Type 2 diabetes mellitus: Problem comment: - noninsulin dependent - home meds (metformin, glipizide) on hold. elevated lactic acid and leukocytosis of unclear significance. SSI. accuchecks. - 02/13 POC glucoses 140-200. Continue current regimen. Status: Chronic (7) DONTA on CPAP: Problem comment: -home equipment brought in. compliant. Status: Chronic (8) Chronic gout: Problem comment: -elevated uric acid -patients reports chronic pain but is opioid naive. usually uses tylenol or tramadol -no allopurinol on home med list (?) - recommend abstinence from alcohol Status: Chronic (9) Daily consumption of alcohol: Problem comment: ash drinker - recommend abstinence from alcohol due to gout, AFib, HF. Status: Chronic (10) Morbid obesity: Status: Chronic Total Time Spent Total Time Spent: Today I spent 50 minutes seeing the patient, discussing with the patient and his son, reviewing Expanse and EPIC notes/diagnostics/labs, discussing the care plan with our care team that includes social work, PT/OT, pharmacy, RT, shelter and documenting my impressions and plan in the medical record. Subjective Time Seen by Provider: 11:15 Date Seen: 02/14/25 Interval history: Clovis tells me he feels much better today. He noted that he has a history of AFib for which he had ablation about 5 years ago. His son is in the room with him today. We discussed C difficile, and Clovis noted that he might of been sicker for a lot longer as he was having bloating and diarrhea prior to feeling constipated. Discussed that having no bowel movement does not necessarily mean constipation and it may have been part of his symptoms of C difficile. We discussed barriers to discharge which include ongoing need for oxygen supplementation. I noted that we are continuing diuresis and his heart rates have been well controlled, so it is likely that he will be able to discharge home tomorrow, but remains to be seen. Their questions were answered. We also discussed abstaining from alcohol as that may worsen both AFib and heart failure. No bowel movement yet today. Exam Narrative: Exam Narrative: General: No acute distress. Awake, alert, oriented x3. No pallor. No jaundice. Sitting comfortably in the bedside chair. Oropharynx: Clear. Mucous membranes moist. Cardiovascular: Irregularly irregular. No murmurs, gallops, or rubs. Respiratory: Clear to auscultation, no crackles, no wheezes. Extremities: 1+ bilateral lower extremity pitting edema. Const: Vital Signs, click to edit/add: Vital Signs - 24 hr 02/13/25 15:00 02/13/25 15:00 02/13/25 15:00 Temperature 98.0 F Pulse Rate Pulse Rate [Pulse Oximeter] 80 Respiratory Rate 20 Blood Pressure [Ri ght Arm] 129/63 Pulse Oximetry 90 93 93 Oxygen Delivery Me thod Room Air Nasal Cannula Oxygen Flow Rate 1 02/13/25 15:00 02/13/25 15:00 02/13/25 16:27 Temperature Pulse Rate 82 Pulse Rate [Pulse Oximeter] 93 93 Respiratory Rate 18 18 Blood Pressure [Ri ght Arm] 157/105 H Pulse Oximetry 94 Oxygen Delivery Me thod Nasal Cannula Oxygen Flow Rate 1 02/13/25 19:43 02/13/25 21:45 02/14/25 00:52 Temperature 98.4 F Pulse Rate 81 Pulse Rate [Pulse Oximeter] 82 Respiratory Rate 18 Blood Pressure [Ri ght Arm] 140/88 H Pulse Oximetry 91 89 Oxygen Delivery Me thod Nasal Cannula CPAP Oxygen Flow Rate 1 4 02/14/25 00:52 02/14/25 01:00 02/14/25 04:19 Temperature 98.0 F Pulse Rate Pulse Rate [Pulse Oximeter] 75 83 Respiratory Rate 18 18 Blood Pressure [Ri ght Arm] 143/83 H 139/95 H Pulse Oximetry 92 93 96 Oxygen Delivery Me thod CPAP CPAP Oxygen Flow Rate 4 2 02/14/25 07:00 02/14/25 07:00 02/14/25 07:00 Temperature Pulse Rate 77 Pulse Rate [Pulse Oximeter] 88 Respiratory Rate Blood Pressure [Ri ght Arm] Pulse Oximetry 92 Oxygen Delivery Me thod Oxygen Flow Rate 02/14/25 07:00 02/14/25 08:47 02/14/25 10:54 Temperature 97.9 F 98.4 F Pulse Rate Pulse Rate [Pulse Oximeter] 98 81 Respiratory Rate 18 18 Blood Pressure [Ri ght Arm] 155/127 H 126/91 H Pulse Oximetry 92 97 91 Oxygen Delivery Me thod Room Air Nasal Cannula Nasal Cannula Oxygen Flow Rate 2 1 02/14/25 10:57 Temperature Pulse Rate Pulse Rate [Pulse Oximeter] Respiratory Rate 20 Blood Pressure [Ri ght Arm] Pulse Oximetry 92 Oxygen Delivery Me thod Nasal Cannula Oxygen Flow Rate 1 Labs Labs: Laboratory Results - last 24 hr 02/14/25 05:55 WBC 8.55 RBC 3.85 L Hgb 10.5 L Hct 32.2 L MCV 84 MCH 27 MCHC 33 RDW Coeff of Richard 15.1 Plt Count 200 Neut % (Auto) 67.0 Lymph % (Auto) 11.0 L [place] % (Auto) 16.1 H Eos % (Auto) 4.9 Baso % (Auto) 0.6 Neut # (Auto) 5.73 Lymph # (Auto) 0.90 [place] # (Auto) 1.40 H Eos # (Auto) 0.42 Baso # (Auto) 0.05 Abs Immat Gran (auto) 0.03 Imm/Tot Granulo (auto) 0.4 Sodium 134 L Potassium 4.0 Chloride 97 Carbon Dioxide 26 Anion Gap 11 BUN 16 Creatinine 0.9 Estimated Creat Clear 69.03 Estimated GFR 90 Glucose 137 H Calcium 8.5
--- NOTE | 2025-02-14 21:48 | PC.NURSE ---
Patient utilizing one Liter Oxygen this shift maintaining saturations between 88-92. He is using his IS and Aerobika regular and independently. PIV in Right forearm patent. Patient received blood sugars and insulin as ordered.
[2025-02-15] VITALS (9 sets, daily range): BP systolic 149–170; BP diastolic 96–137; PULSE 76–103; RESP 14–18; TEMP 36.6–36.8; O2SAT 90–97
[2025-02-15] MEDS: OMEPRAZOLE 20 MG CAPSULE DR 40 MG PO (06:54)
[2025-02-15 07:50] LABS: Potassium* 4.2 mmol/L (3.6-5.1); Sodium* 132 mmol/L (135-149)
[2025-02-15 07:51] LABS: Chloride* 96 mmol/L (96-114)
[2025-02-15 07:53] LABS: Anion Gap 11 mEq/L (7-15); Blood Urea Nitrogen* 19 mg/dL (7-30); Carbon Dioxide* 25 mmol/L (20-32); Creatinine* 1.0 mg/dL (0.5-1.5); Est. Creatinine Clearance* 69.03; Estimated Glomerular Filt Rate 79 ml/min
[2025-02-15 07:54] LABS: Calcium* 8.9 mg/dL (8.4-10.6); Glucose* 179 mg/dL (60-115)
[2025-02-15] MEDS: LACTOBACILLUS ACIDOPHILUS 1 TABLET 2 TAB PO (07:58)
[2025-02-15] MEDS: INSULIN ASPART 100 UNIT/ML SUBCUT (07:58)
--- NOTE | 2025-02-15 07:59 | PC.NURSE ---
Shift note ([id number]): Patient pleasant, alert and oriented. Independent in room. Continues on precautions for C-Diff. No BMs during night. O2 via C-PAP during night at 1LPM to maintain sats above 88%. Requested ice pack for c/o right wrist pain due to gout. Pt reports effective. Otherwise denied any discomfort. No c/o SOB. Q 4hr Metoprolol held this shift for HR below 90. BPs remain elevated.?
[2025-02-15] MEDS: ATORVASTATIN CALCIUM 10 MG TABLET 20 MG PO (08:43)
[2025-02-15] MEDS: APIXABAN 5 MG TABLET PO (08:43)
[2025-02-15] MEDS: METOPROLOL TARTRATE 100 MG TABLET PO (08:43)
[2025-02-15] MEDS: FUROSEMIDE 10 MG/ML inj 40 MG IVP (08:43)
[2025-02-15] MEDS: VANCOMYCIN 125 MG CAPSULE PO (08:43)
[2025-02-15] MEDS: SODIUM CHLORIDE 0.9 % (FLUSH) 10 ML SYRINGE 5 ML IVF (08:44)
--- NOTE | 2025-02-15 09:39 | PC.SOCIAL ---
Discharge planning: SW met with patient to see if there are any needs/resources he would like for home. Patient states that he can't think of anything. Patient explains his passed in April, and they had a fully handicapped home as she had MS, so everything is walk-in accessible. Patient reports that his sons have him set up with [employer] and that he gets these delivered every two weeks. Patient states that his daughter lives a block away and she will bring him home when he is discharged. Patient reports that he has a cleaning lady come every two weeks to clean. Patient explains that he stays active and has an e-bike that he is looking forward to getting back out on. Patient has no concerns or requests for resources at this time. SW to assist if needs arise.
--- NOTE | 2025-02-15 10:14 | RESP.RT ---
Evaluated pt for home oxygen. Home oxygen is not indicated for this patient. Pt lives in [place] style home, everything on one floor. Has ramp into house. No stairs per pt. Pt walking in room, marching doing Cardiac cals, lowest SPO2 was 88% which he recovered from in 10 seconds to 94% Pt pulmonary effort with ease, no SOB. Pt reports no SOB at home, as he does not move around much. OF note PT. has an older style CPAP machine, and mask. Per Pt he has not had a new machine for over 10 years, and reports having 2 machines. Pt also indicates he has only ever had one study, approx 20 years ago. Pt would benefit from a repeat study to confirm correct settings. He should also reach out to provider to receive an upgraded cpap unit and mask.
--- NOTE | 2025-02-15 10:49 | PM.DS1 ---
DS: Providers Provider Time Seen by Provider: 10:00 Date Seen: 02/15/25 Date of admission: 02/12/25 21:07 Primary care physician: Not a Local Provider Admitting Clinician: Mylene Camejo MD Consults: 02/12/25 21:09 Consult to Occupational Therapy [CONS] Routine Comment: Reason(s) for OT Consult:: Evaluate and Treat Any Restrictions?:: No Restrictions Consult to Physical Therapy [CONS] Routine Comment: Reason(s) for PT Consult:: Evaluate and Treat Any Restrictions?:: No Restrictions Consult to Respiratory Therapy [CONS] Routine Comment: Reason(s) for RT Consult:: Consult Consult to [place] [employer] [CONS] Routine Comment: Reason for Consult:: Social Service Consult Attending Physician on discharge: Maude Sarabia MD Date of Discharge: 02/15/25 DS: Diagnosis Discharge Diagnosis (1) C. difficile diarrhea: Status: Acute Problem details: - oral vanco x 10 days total (this is day 2), lactobacillus, precautions (2) Acute hypoxemic respiratory failure: Status: Acute Problem details: -2/2 pulmonary edema related to acute heart failure from afib rvr -VBG shows alkalosis without CO2 retention (respiratory alkalosis) -O2 per nasal cannula to keep sats above 90% -patient's family brought CPAP machine, can use home settings - 02/13 Improving, possibly resolved. Satting well on RA today. - 02/14 requiring a small amount of oxygen yet, and continue diuresis, possible discharge home tomorrow if able to wean off oxygen - 02/15 RESOLVED, no longer requiring oxygen (3) Acute CHF: Status: Acute Problem details: - Acute exacerbation of HFpEF -no current echo. inpatient order to determine EF and valve status. 2021 showed EF normal. -diuresis 40mg lasix IV. diuretic naive. - 02/13 wt 2kg decrease overnight. Continue IV diuresis, Cr stable. HR better control today, which will likely also improve HF. Monitor. - 02/14 3kg decrease overnight. Still requiring some oxygen. Discussed heart healthy, low salt diet. Continue diuresis, possible discharge home tomorrow if able to wean off oxygen. - 02/15 Ongoing improvment, now off oxygen. Transition to po lasix and start Jardiance for homegoing for guideline directed therapy of HFpEF. Low sodium diet. (4) Atrial fibrillation with RVR: Status: Acute Problem details: -takes metoprolol 100mg BID for HTN. -No recent cards visit, echo, or oral anticoagulation -pt relates a hx of cardiac ablation in 2018 while at [facility] (No records) -no hx of ischemic events -smokes cigars, diabetic, obese, hyperlipidemia, htn -will adjust rate control with doses of metoprolol - 02/13 HR better control today, under 100bpm. Continue to monitor on telemetry, continue metoprolol 100 mg BID, has not needed any extra. Suspect Cdiff exacerbated HR. - 02/14 good control with metoprolol. Eliquis for anticoag (5) Chronic gout: Status: Chronic Problem details: -elevated uric acid -patients reports chronic pain but is opioid naive. usually uses tylenol or tramadol -no allopurinol on home med list (?) - recommend abstinence from alcohol (for gout, afib, CHF, and being on Eliquis), patient not receptive to this advice - giving a dose of colchicine today and will give some to go home with as well. Will discuss further treatment and allopurinol with PCP at [place]. (6) Hypertension: Status: Acute Problem details: -continue metoprolol 100 BID -restart home amlodipine 10mg -hx of angioedema with ACEI (7) Type 2 diabetes mellitus: Status: Chronic Problem details: - noninsulin dependent - resume home meds (metformin, glipizide).. elevated lactic acid and leukocytosis of unclear significance. SSI. accuchecks. - 02/13 POC glucoses 140-200. Continue current regimen. - 02/15 Start jiardiance for HF and DM (8) DONTA on CPAP: Status: Chronic Problem details: -home equipment brought in. compliant. - his equipment is 10 years old. Recommend he gets new device, tubing, etc. (9) Daily consumption of alcohol: Status: Chronic Problem details: ash drinker - recommend abstinence from alcohol due to gout, AFib, HF. Patient not receptive. (10) Morbid obesity: Status: Chronic DS: Summary Hospital Course Hospital Course: Per H&P: Shayne is a 74 year old white male. He lives in [place] and receives most of his care through the [facility]. he presents today with his daughter and son given recent increases in his work of breathing, dyspnea on exertion and fatigue. He has some intermittent chronic swelling of his right leg which has been present since we saw him a couple years ago for a cellulitic infection. However he has noticed this is been more consistent and now his left leg is swelling. He notes that he cannot do his usual activities without becoming so short of breath he needs to sit down. No fever or productive cough. No recent travel. No chest pain. No palpitations. He does have a history of AFib. He doesn't feel the palpitations or if he is in or out of AFIB. His thoughts are that it was bad in 2018 and he was at [place] [id number] hospitalized and transferred to the [facility]. He underwent an ablation and it was gone. No follow-up. No OAC. No recent cards visits. There is a 2021 echo that shows AFIB. One of our previous notes says he declines OAC so he can use NSAIDS for his gout. The history is unclear. ER COURSE: IV diuresis, portable cxr, elbow xray, labs, u/s of b/l legs. oxygen supplementation. [place]'s elevated HR improved with his usual doses of metoprolol. He had diarrhea and was C diff positive for which he was started on po vanco. An ECHO was obtained and he was also diuresed for HF. Dyspnea and diarrhea resolved and he was discharged home today in improved condition. Please see diagnoses above for full details. Time Spent with Patient Time attestation: Total time spent providing and/or coordinating discharge services: Today I spent 70 minutes seeing the patient, discussing with the patient and his daughter, reviewing [facility] and [facility] notes/diagnostics/labs, discussing the care plan with our care team that includes social work, PT/OT, pharmacy, RT, chcf and documenting my impressions and plan in the medical record. Exam Narrative: Exam Narrative: General: No acute distress. Awake, alert, oriented x3. No pallor. No jaundice. Sitting comfortably in the bedside chair. Oropharynx: Clear. Mucous membranes moist. Cardiovascular: Irregularly irregular. No murmurs, gallops, or rubs. Respiratory: Clear to auscultation, no crackles, no wheezes. Extremities: Swollen, hot, tender left wrist/1st metacarpophalangeal joint. Trace bilateral lower extremity pitting edema. Const: Vital Signs, click to edit/add: Vital Signs - 24 hr 02/14/25 10:54 02/14/25 10:57 02/14/25 15:00 Temperature 98.4 F 98.4 F Pulse Rate Pulse Rate [Pulse Oximeter] 81 81 Respiratory Rate 18 20 20 Blood Pressure [Le ft Arm] Blood Pressure [Ri ght Arm] 126/91 H 147/94 H Pulse Oximetry 91 92 92 Oxygen Delivery Me thod Nasal Cannula Nasal Cannula Nasal Cannula Oxygen Flow Rate 1 1 1 Fraction of Inspir ed Oxygen 1 02/14/25 15:00 02/14/25 15:00 02/14/25 15:00 Temperature Pulse Rate 84 Pulse Rate [Pulse Oximeter] 79 Respiratory Rate 20 Blood Pressure [Le ft Arm] Blood Pressure [Ri ght Arm] Pulse Oximetry 92 Oxygen Delivery Me thod Oxygen Flow Rate Fraction of Inspir ed Oxygen 02/14/25 15:00 02/14/25 17:41 02/14/25 19:00 Temperature 98.4 F 98.5 F Pulse Rate Pulse Rate [Pulse Oximeter] 79 84 Respiratory Rate 20 20 16 Blood Pressure [Le ft Arm] Blood Pressure [Ri ght Arm] 165/92 H 130/90 H Pulse Oximetry 92 92 92 Oxygen Delivery Me thod Nasal Cannula Nasal Cannula Nasal Cannula Oxygen Flow Rate 1 1 1 Fraction of Inspir ed Oxygen 1 1 02/15/25 00:56 02/15/25 00:56 02/15/25 00:56 Temperature 97.8 F Pulse Rate Pulse Rate [Pulse Oximeter] 76 Respiratory Rate 16 Blood Pressure [Le ft Arm] Blood Pressure [Ri ght Arm] 170/98 H Pulse Oximetry 93 97 96 Oxygen Delivery Me thod CPAP CPAP Oxygen Flow Rate 1 1 Fraction of Inspir ed Oxygen 02/15/25 02:20 02/15/25 04:27 02/15/25 07:06 Temperature Pulse Rate 87 84 Pulse Rate [Pulse Oximeter] 79 Respiratory Rate 18 Blood Pressure [Le ft Arm] Blood Pressure [Ri ght Arm] 149/98 H Pulse Oximetry 90 Oxygen Delivery Me thod Oxygen Flow Rate Fraction of Inspir ed Oxygen 02/15/25 07:40 02/15/25 07:40 02/15/25 07:40 Temperature 98.3 F Pulse Rate Pulse Rate [Pulse Oximeter] 88 88 Respiratory Rate 14 14 14 Blood Pressure [Le ft Arm] 161/96 H Blood Pressure [Ri ght Arm] Pulse Oximetry 97 97 Oxygen Delivery Me thod Room Air Room Air Oxygen Flow Rate Fraction of Inspir ed Oxygen 02/15/25 07:45 02/15/25 10:30 02/15/25 10:34 Temperature 98.1 F Pulse Rate Pulse Rate [Pulse Oximeter] 93 85 Respiratory Rate 14 Blood Pressure [Le ft Arm] Blood Pressure [Ri ght Arm] 168/137 H 164/123 H Pulse Oximetry 97 95 Oxygen Delivery Me thod Room Air Oxygen Flow Rate Fraction of Inspir ed Oxygen DS: Data Data Completed and Pending Completed studies during hospitalization: Ordering Physician: Nora Estrada M.D. Date of Service: 02/12/25 Procedure(s): XR chest 1V portable Accession Number(s): [id number] cc: Nora Estrada M.D.; Provider,Not a Local~ For Patients: As a result of the Cures Act, medical imaging exams and procedure reports are released immediately into your electronic medical record. You may view this report before your referring provider. If you have questions, please contact your health care provider. INDICATION: Shortness of breath TECHNIQUE: Chest radiograph 1 view on 2 images COMPARISON: None FINDINGS: The sensitivity and specificity of the exam are severely limited by the patient`s body habitus. Mediastinum: The mediastinum is normal in appearance. The cardiac silhouette is moderately enlarged but may be accentuated by the portable technique. Lung: Small lung volumes are present with mild perihilar vascular crowding, perihilar atelectasis, and bibasilar atelectasis noted. No sign of pleural effusion seen. No pneumothorax is identified. Bone and Soft tissue: Unremarkable for age. IMPRESSIONS: 1. Small lung volumes are present with mild perihilar vascular crowding, perihilar atelectasis, and bibasilar atelectasis noted. 2. The cardiac silhouette is moderately enlarged but may be accentuated by the portable technique. Dictated by Severo Graham MD @ 02/12/2025 6:46:41 PM Dictated by: Severo Graham MD @ 02/12/2025 18:46:44 (Electronically Signed) Ordering Physician: Nora Estrada M.D. Date of Service: 02/12/25 Procedure(s): XR elbow LT 2V Accession Number(s): [id number] cc: Nora Estrada M.D.; Provider,Not a Local~ For Patients: As a result of the Cures Act, medical imaging exams and procedure reports are released immediately into your electronic medical record. You may view this report before your referring provider. If you have questions, please contact your health care provider. Indication: MASS Technique: Two views of the left elbow. Comparison: None. Findings: Moderate to severe soft tissue swelling of the elbow overlying the olecranon with associated calcifications. No acute displaced fracture or malalignment is seen. No elbow joint effusion. Moderate vascular calcification. Impression: Moderate to severe soft tissue swelling of the elbow overlying the olecranon with associated calcifications. Findings may be seen in the setting of gout or calcific olecranon bursitis. Dictated by Bennie Cedeño MD @ 02/12/2025 6:52:52 PM (Electronically Signed) Ordering Physician: Nora Estrada M.D. Date of Service: 02/12/25 Procedure(s): US venous LE BI Accession Number(s): [id number] cc: Nora Estrada M.D.; Provider,Not a Local~ For Patients: As a result of the Cures Act, medical imaging exams and procedure reports are released immediately into your electronic medical record. You may view this report before your referring provider. If you have questions, please contact your health care provider. INDICATION: Bilateral lower extremity edema. COMPARISON: Right lower extremity venous ultrasound 01/11/2023. TECHNIQUE: A compression venous ultrasound exam was performed of both lower extremities using salazar scale imaging, color Doppler, and spectral Doppler analysis. FINDINGS: Technically difficult exam due to body habitus and edema. Right: Sonographic imaging of the right lower extremity demonstrates normal compressibility and color Doppler venous blood flow within the common femoral, femoral, deep femoral, and proximal greater saphenous veins. At a lower level the popliteal, peroneal, and posterior tibial veins also show normal compressibility and color Doppler venous blood flow. Subcutaneous edema in the calf. Left: Sonographic imaging of the left lower extremity demonstrates normal compressibility and color Doppler venous blood flow within the common femoral, femoral, deep femoral, and proximal greater saphenous veins. At a lower level the popliteal, peroneal, and posterior tibial veins also show normal compressibility and color Doppler venous blood flow. Subcutaneous edema in the calf. IMPRESSION: Both lower extremities are negative for acute DVT. Dictated by Paulina Subramanian MD @ 02/12/2025 9:02:40 PM (Electronically Signed) Labs on day of discharge: Labs from last 24 hours 02/15/25 07:33 Sodium 132 L Potassium 4.2 Chloride 96 Carbon Dioxide 25 Anion Gap 11 BUN 19 Creatinine 1.0 Estimated Creat Clear 69.03 Estimated GFR 79 Glucose 179 H Calcium 8.9 Discharge Plan Discharge Disposition: Home, Self-Care Date of Admission: 02/12/25 21:07 Attending Provider on Discharge: Maude Sarabia Primary Care Provider: Provider,Not a Local Condition: Stable Anticipated Discharge Date/Time: 02/15/25 11:36 Discharge Medications: New Eliquis 5 mg Tablet 5 mg PO BID Qty: 60 0RF furosemide 40 mg tablet 40 mg PO DAILY Qty: 30 0RF vancomycin 125 mg Capsule 125 mg PO QID 8 Days Qty: 32 0RF Jardiance 10 mg tablet 10 mg PO DAILY Qty: 30 0RF colchicine 0.6 mg capsule 0.6 mg PO DAILY PRN (Reason: gouty flare) Qty: 14 0RF Continued amlodipine 10 mg tablet 10 mg PO DAILY glipizide 10 mg tablet 10 mg PO BID metoprolol tartrate 100 mg tablet 100 mg PO BID metformin 1,000 mg tablet 1,000 mg PO BIDWMEAL atorvastatin 20 mg tablet 20 mg PO QHS acetaminophen 325 mg Tablet 650 - 975 mg PO Q6H PRN1 Days Qty: 100 0RF CertaVite Senior 0.4 mg-300 mcg- 250 mcg tablet 1 tab PO DAILY loratadine 10 mg tablet 10 mg PO DAILY PRN Rx Instructions: PRN ITCHING lidocaine [Lidoderm] 5 % adhesive patch,medicated See Rx Instructions .ROUTE .COMPLEX Rx Instructions: leave on most painful area for up to 12 hrs hydrocortisone 2.5 % cream 1 applic topical BID PRN Rx Instructions: PRN RASH Discontinued diphenhydramine HCl [Allergy (diphenhydramine)] 25 mg capsule 50 mg PO QHS PRN Rx Instructions: PRN ITCHING Discharge Orders: Discharge Order (Routine); Ordered 02/15/25 Ordered By: Maude Sarabia Patient Education: Furosemide (By mouth), Colchicine (By mouth), Vancomycin (By mouth), Apixaban (By mouth) (Eliquis), Empagliflozin (By mouth) (Jardiance), Heart Failure (GEN), A-fib (Atrial Fibrillation) (GEN), C. Diff (Clostridioides Difficile) Infection (GEN) Additional Instructions: - service delivery supervisor a probiotic and take that for one month. - Weigh yourself every morning on the same scale when you get up, after use the bathroom, before you eat. Wear similar clothing each time you weigh yourself. Keep track of your weight. Call your doctor if you gain more than 2 pounds in a day, or 5 pounds in a week. - pickle processor a new CPAP device to use nightly. Activity Level: No Restrictions Discharge Diet: Heart Healthy (2 gm sodium, low fat) Follow Up Appointments: Provider,Not a Local [Primary Care Provider, Family Practice] Referral Note: Patient will need to set up this [facility] with the[facility]. Forms: [facility] Bel[facility], [facility] Inst[facility]
[2025-02-15] MEDS: COLCHICINE 0.6 MG CAPSULE 1.2 MG PO (11:11)
--- NOTE | 2025-02-15 12:29 | PC.NURSE ---
Discharge; Patient pleasant and cooperative. Patient vitally stable, lungs clear, BS WNL, IV removed, catheter intact. Patient on RA. Patient is independent in room at rates, left hand pain 2-3/10(gout flare), active ice used. Patient tolerating regular diet and urinating well. Patient's breakfast blood sugar was 270. Patient had his daughter signed belongings sheet and discharge form. Home medications were returned. Patient was educated on weighing himself daily and following a heart healthy diet. Patient had no further questions regarding discharge education. Patient left the floor ambulating by foot at 1226, with daughter and belongings.
== END 2025-02-15 12:26 | disposition home or self-care (01) | DRG 291 ==
LOC: ED 20:59 → MEDSURG 21:08
PROVIDERS: Family Medicine; Admitting Provider Family Medicine; Emergency Provider Family Medicine; Visit Provider Family Medicine
DX: I11.0 Hypertensive heart disease with heart failure (principal); I50.31 Acute diastolic (congestive) heart failure; J96.01 Acute respiratory failure with hypoxia; A04.72 Enterocolitis due to Clostridium difficile, not specified as recurrent; I48.91 Unspecified atrial fibrillation; E11.9 Type 2 diabetes mellitus without complications; Z79.84 Long term (current) use of oral hypoglycemic drugs; E66.01 Morbid (severe) obesity due to excess calories; G47.33 Obstructive sleep apnea (adult) (pediatric); M1A.9XX0 Chronic gout, unspecified, without tophus (tophi)
CPT/HCPCS: 36415; 71045; 73070; 80048; 80053; 80069; 81001; 82803; 82962; 83036; 83605; 83735; 83880; 84484; 84550; 85025; 85610; 86140; 87493; 87631; 93005; 93306; 93970; 94664; 94761; 97110; 97116; 97161; 97165; 97535; 99284; 99285; A9270; J1938